=== PATIENT | female | born 1985 | race Two or more races ===

== ENCOUNTER 2024-01-21 21:31 | Inpatient (IN) | payer MEDICARE, MEDICAID ==
[~2024-01-21] VITALS: Ht 172.7 cm; Wt 105.8 kg
--- NOTE | 2024-01-21 21:38 | ED.PDOC ---
History of Present Illness HPI Comments 38-year-old female with "extensive psych history" brought in by EMS presents with a chief complaint of hematoma to occipital region. Per EMS, patient was at her care home and was banging her head against a wall. Patient has a 2x2 sized hematoma to the occipital region of her head. Per EMS, patient has extensive psych history per care home. Patient is not answering questions at this time about whether she was attempting to harm herself or end her life. No other symptoms or modifying factors present at this time. Time Seen by MD: 21:30 Reviewed Notes: Medications, Allergies Allergies: Coded Allergies: NO KNOWN ALLERGIES (Unverified , 01/21/24) Information Source: Emergency Med Personnel Mode of Arrival: EMS Severity: Moderate Timing: Minutes Duration: Since onset Prehospital treatment: None Past Medical History PAST MEDICAL HISTORY: Denies Surgical History: Denies all surgeries DRUG ABUSE COUNSELOR History: Denies all DRUG ABUSE COUNSELOR Hx Family History Family History: Reviewed,noncontributory to illness Social History Smoker: Non-Smoker Alcohol: Denies ETOH Use Drugs: Denies Drug Use Lives In: Other (RETIREMENT) Constitutional: denies: chills, diaphoresis, fatigue, fever, malaise, sweats, weakness, others EENTM: denies: blurred vision, double vision, ear bleeding, ear discharge, ear drainage, ear pain, ear ringing, eye pain, eye redness, hearing loss, mouth pain, mouth swelling, nasal discharge, nose bleeding, nose congestion, nose pain, photophobia, tearing, throat pain, throat swelling, voice changes, others Respiratory: denies: cough, hemoptysis, orthopnea, SOB at rest, shortness of breath, SOB with excertion, stridor, wheezing, others Cardiovascular: denies: chest pain, dizzy spells, diaphoresis, Dyspnea on exertion, edema, irregular heart beat, left arm pain, lightheadedness, palpitations, PND, syncope, others Gastrointestinal: denies: abdomen distended, abdominal pain, blood streaked bowels, constipated, diarrhea, dysphagia, difficulty swallowing, hematemesis, melena, nausea, poor appetite, poor fluid intake, rectal bleeding, rectal pain, vomiting, others Genitourinary: denies: abnormal vagina bleeding, burning, dyspareunia, dysuria, flank pain, frequency, hematuria, incontinence, pain, , vagina discharge, urgency, others Neurological: denies: dizziness, fainting, headache, left sided numbness, left sided weakness, numbness, paresthesia, pre-existing deficit, right sided numbness, right sided weakness, seizure, speech problems, tingling, tremors, weakness, others Musculoskeletal: denies: back pain, gout, joint pain, joint swelling, muscle pain, muscle stiffness, neck pain, others Integumetry: reports: wounds (2x2 Hematoma to Occipital Region); denies: bruises, change in color, change in hair/nails, dryness, laceration, lesions, lumps, rash, others Allergic/Immunocompromised: denies: Difficulty Healing, Frequent Infections, Hives, Itching, others Hematologic/Lymphatic: denies: anemia, blood clots, easy bleeding, easy b ruising, swollen glands, others Endocrine: denies: excessive hunger, excessive sweating, excessive thirst, excessive urination, flushing, intolerance to cold, intolerance to heat, unexplained weight gain, unexplained weight loss, others Psychiatric: denies: anxiety, bipolar disorder, depression, hopeless, panic disorder, schizophrenia, sleepless, suicidal, others All Other Systems: Reviewed and Negative Physical Exam General Appearance: No Apparent Distress, Normal, Other (2x2 Hematoma to Occipital Region ) HEENT: Normal ENT Inspection, Pharynx Normal, TMs Normal Neck: Full Range of Motion, Non-Tender, Normal, Normal Inspection Respiratory: Chest Non-Tender, Lungs Clear, No Accessory Muscle Use, No Respiratory Distress, Normal Breath Sounds Cardiovascular: No Edema, No JVD, No Murmur, No Gallop, Normal Peripheral Pulses, Regular Rate/Rhythm Breast Exam: Deferred Gastrointestinal: No Organomegaly, Non Tender, No Pulsatile Mass, Normal Bowel Sounds, Soft Genitalia: Deferred Pelvic: Deferred Rectal: Deferred Extremities: No calf tenderness, Normal capillary refill, Normal inspection, Normal range of motion, Non-tender, No pedal edema Musculoskeletal : Apperance: Normal Neurologic: Alert, golf shoe spike assembler II-XII nml as Tested, No Motor Deficits, Normal Affect, Normal Mood, No Sensory Deficits Cerebellar Function: Normal Reflexes: Normal Skin: Dry, Normal Color, Warm Lymphatic: No Adenopathy Was a procedure done? Was a procedure done?: No Differential Dx Considerations may include: intracranial injury X-Ray, Labs, Meds, VS Vital Signs Date Time Temp Pulse Resp B/P (MAP) Pulse Ox O2 Delivery O2 Flow Rate FiO2 01/21/24 21:31 97.6 86 20 171/77 (108) 99 Current Medications Medications (Trade) Dose Ordered Sig/Jimmy Route Start Time Stop Time Status Last Admin Midazolam HCl (Versed Injection) 10 mg ONCE ONCE IM 01/21/24 22:00 01/21/24 22:01 DC 01/21/24 22:49 Time of 1ST Reevaluation: 22:00 Reevaluation 1ST: Unchanged Patient Education/Counseling: Diagnosis, Treatment, Prognosis Family Education/Counseling: No Family Present Departure 1 Departure Time of Disposition: 01:57 (Patient's head CT is negative. We will discharge patient back to the care home.) Impression: Primary Impression: Aggressive behavior Additional Impression: Head contusion Qualified Codes: S00.03XA - Contusion of scalp, initial encounter Disposition: HOME / SELF CARE / HOMELESS Condition: Stable Additional Instructions: Your CT scan was benign. Your workup today was benign. You can take Tylenol or Motrin as needed for pain. You should follow up with your regular doctor within 1 week. You should stay well rested and well hydrated. If your symptoms worsen or you have any other concerns please return to the emergency room. Discharged With: Self Critical Care Note Critical Care Time?: No Stability Stability form required: No I personally scribed for EMANUEL TAYLOR MD ([email or web address]) on 01/21/24 at 21:38. Electronically submitted by Sung Baez ([email or web address]). EMANUEL TAYLOR MD Jan 21, 2024 21:38
[2024-01-21] MEDS: MIDAZOLAM HCL 5 MG/ML-1ML VIAL ONE (22:49)
[2024-01-21] MEDS: MIDAZOLAM HCL 5 MG/ML-1ML VIAL IM ONE (22:49)
--- NOTE | 2024-01-22 02:37 | DVH ---
Examination: HWOCT CLINICAL INDICATION: headstrike COMPARISON: None. CONTRAST USED: None. TECHNIQUE: The examination was performed obtaining 5 mm slices without contrast. CT scan was done a ccording to ALARA (As Low as Reasonably Achievable). Multiplanar reconstructions were obtained. FINDINGS: SUPRATENTORIAL BRAIN: Cerebral Hemispheres: There is no midline shift or mass effect, intra- or extra-axial fluid collecti ons or hemorrhage. Periventricular White Matter/Basal Ganglia: No abnormal areas of altered attenuation within the derek ventricular white matter or basal ganglia. POSTERIOR FOSSA: The brainstem is normal and the visualized cerebellar hemispheres are unremarkable. VENTRICULAR SYSTEM: The ventricular system is normal in size. There is no evidence of hydrocephalus or transependymal flow of cerebrospinal fluid. SKULL BASE AND PARASELLAR REGION: The skull base is normal, with no parasellar masses or abnormaliti es identified. CALVARIUM AND SCALP REGION: No abnormality is seen. PARANASAL SINUSES: No significant inflammatory changes are identified in the paranasal sinuses. IMPRESSION: 1. No evidence of calvarial fracture or extra-axial collection. 2. No acute intracranial abnormality. 3. No evidence of acute infarct or intracranial hemorrhage. 4. Rangel-white matter differentiation is well maintained. Electronically Signed 01/22/2024 02:36 Jess Flores
[2024-01-22] MEDS: MIDAZOLAM HCL 5 MG/ML-1ML VIAL IM ONE (05:11)
--- NOTE | 2024-01-22 05:33 | DVHINCON2 ---
Date of Service if different f: Jan 22, 2024 Time of Service: 05:26 Consult Consult Note Pt too sedated for psych evaluation at this time as pt was recently administered Versed due to increased agitation and restlessness Please call when pt is awake/alert and cooperative for a psych evaluation Odilon Restrepo MD Plan discussed with: Patient ODILON RESTREPO MD Jan 22, 2024 05:33
[2024-01-22] MEDS: HALOPERIDOL LACTATE 5 MG/ML INJ VIAL ONE (11:00)
[2024-01-22] MEDS: diphenhdrAMINE HCL 50 MG/1 ML VL ONE (11:00)
--- NOTE | 2024-01-22 11:00 | DVHINCON2 ---
Date of Service if different f: Jan 22, 2024 Consultation ([facility]) Appetite: Fair Appearance: Older than stated age Psychomotor activity: WNL Behavioral: Cooperative Eye contact: Appropriate Speech: WNL Affect: Mood Congruent, Irritable Mood: Irritable Thought processes: Starke Thought content: WNL Suicidal ideations: Absent Homicidal ideations: Absent Orientation: Person, Place, Situation Memory intact: Recent Intellect: Below average Abstractability: Starke Concentration: Adequate Attention: Adequate Judgement: Limited Insight: Poor Vitals Vital Signs Date Time Temp Pulse Resp B/P (MAP) Pulse Ox O2 Delivery O2 Flow Rate FiO2 01/22/24 08:00 62 18 100 01/21/24 21:31 97.6 171/77 (108) Treatment plan discussed: With staff Medication adjusted: No Diagnosis: intellectual disability, unspecified mood disorder Plan : This is a 38-year-old female who appears to be autistic, intellectual disability, presented to ED for banging her head. At this time, pt is calm reports being upset at the time. she denies suicidal/homicidal ideation, and requesting to return to longterm. Recommend discharge back to facility if they are willing, as inpatient hospitalization may not be helpful given that her condition is chronic Her psychotropic medication regime is not known, recommend to continue as prescribed and follow up outpatient. History of Present Illness Reason for Consult : banging her head at longterm, agitation in the ED HPI : This is a 38-year-old female with hx of intellectual disability presented to ED on 01/21/24 from longterm after banging her head. Patient is evaluated via telepsychiatry. On evaluation, pt reports that she was bored at longterm and started banging her head. She asked if she could go ride her bike prior to this, but caregiver refused saying he was busy and she became upset. She denies self-harming thoughts. She denies suicidal/homicidal ideation. She denies auditory/visual comer llucinations or paranoia. She frequently asking to go back to longterm during interview. She reports although she was banging her head, they should mind their business. She denies feeling depressed. Given her condition, she does have limited insight, but does agree to not bang her head and use her words. Past Psychiatric History : Per report, pt has extensive psychiatric history. She is unable to provide any history including prescribed psychotropic medications. She denies past suicide attempts. Past Medical History : She cannot provide Social History : She lives at longterm for unknown duration. She reports in g vape pen for marijuana and nicotine usually daily. FRANCISCO SHIELDS DNP Jan 22, 2024 10:59
[2024-01-22] MEDS: LORazepam 2MG/ML-1ML VIAL ONE (11:01)
[2024-01-22] MEDS: diphenhdrAMINE HCL 50 MG/1 ML VL IM ONE (11:03)
[2024-01-22] MEDS: LORazepam 2MG/ML-1ML VIAL IM ONE ×2 (11:03→19:39)
[2024-01-22] MEDS: HALOPERIDOL LACTATE 5 MG/ML INJ VIAL IM ONE (11:03)
[2024-01-22] MEDS: MIDAZOLAM HCL 2MG/2ML 2ml VIAL (1mg/ml) IM ONE (19:38)
[2024-01-23 11:00] VITALS: RESP 18
--- NOTE | 2024-01-23 11:58 | TELE.CONS ---
01/23/24 0538 The patient was seen and evaluated at [facility] ED via telepsychiatry platform. 38 yr old female was admitted on 01/20 for evaluation as she had been banging her head at her board and care. [facility] and diagnosed with Autism and Intellectual disability. She reported that she feels irritable today. She stated she wants to go home, but refused to take medication in the hospital and was combative with staff. She went to the bathroom in her diaper and became very aggressive. She denied having SI/HI/AVH. Collateral information from caregiver, Steve ([phone]): He reported that the patient has been diagnosed with schizophrenia, PTSD, Autism and ID. She has been at the [facility] and [facility] in [place] for the past four months. He reported that she is on several medications and has not taken them for the past ten days. She also receives Abilify Maintenna monthly, but refused the last shot so it was last given in early November. He noted that she was admitted to a [facility] from Dec 14- 2023 on involuntary hold and was discharged back to [facility]. He stated that she started banging her head and acting up on 01/16 so she was taken to the ED. At that time, she said she was taking her medications and was discharged back to [facility]. After returning there she told the staff that she had been throwing up her medication and not taking it. On the day of admission, she started banging her head on the wall and said she was trying to kill herself. She would not stop so they had her taken to the ED. He stated that she has a tendency to do much better when she is on her medications, but that since she has been off, she has been more aggressive, combative and oppositional. Current outpatient medications: Abilify Maintenna 400mg IM qmonth (last received in November and currently due) Prolixin 50mg BID Oxcarbazepine 150mg BID Quetiapine 300mg qhs Trazodone 150mg qhs Airipiprazole 15mg qam Xarelto 10mg qam Levothyroxine 50mcg rosie amlodpine 5mg qam atorvastatin 20mg qhs Glyburide 5mg BID Hydroxyzine 50mg BID MSE: Alert, oriented female sitting on bed cooperative and forthcoming speech-regular rate, rhythm Mood-depressed Affect-depressed, labile, congruent Tht process-linear and goal directed Tht Content- Denied having suicidal or homicidal ideation, plan or intent. denied AVH Insight-poor Judgment-poor Impulse control-poor Diagnosis: SCHIZOPHRENIA; AUTISM Assessment: This 38 yr old female appears to suffer from schizophrenia and autism. She has been off her medications and refused to take them for ten days. She is currently impulsive and suicidal and is a danger to her self as well as gravely disabled. She warrants admission to behavioral health unit for stabilization, observation and treatment. Plan: 1. Transfer to U when bed available. 2. Legal-initiate involuntary 5150 hold for danger to self and grave disability. Monitor for safety 3. Medications- Recommend Olanzapine 10mg TID PO or IM Ativan 2mg q8 hr prn agitation Seroquel 300mg qhs prn for sleep. 4. Case discussed with ED physician, Dr Candelaria. 5. Please contact psychiatry if further follow up or reevaluation is desired. Yes QUENTIN PINEDA MD Jan 23, 2024 11:58
[2024-01-23] MEDS ORDERED: LORazepam 2MG/ML-1ML VIAL IV ONE ×2 (13:45→14:00)
[2024-01-23] MEDS ORDERED: diphenhdrAMINE HCL 50 MG/1 ML VL IM ONE (13:45)
[2024-01-23] MEDS ORDERED: HALOPERIDOL LACTATE 5 MG/ML INJ VIAL IM ONE (13:45)
[2024-01-23] MEDS: LORazepam 2MG/ML-1ML VIAL ONE (13:48)
[2024-01-23] MEDS: diphenhdrAMINE HCL 50 MG/1 ML VL ONE (13:49)
[2024-01-23] MEDS: HALOPERIDOL LACTATE 5 MG/ML INJ VIAL ONE (13:49)
[2024-01-23] MEDS ORDERED: diphenhdrAMINE HCL 50 MG/1 ML VL IV ONE (14:00)
[2024-01-23] MEDS: OLANZapine 5 MG TAB PO ONE (14:00)
[2024-01-23] MEDS: HALOPERIDOL LACTATE 5 MG/ML INJ VIAL IM ONE (14:18)
[2024-01-23] MEDS: LORazepam 2MG/ML-1ML VIAL IM ONE (14:18)
[2024-01-23] MEDS: diphenhdrAMINE HCL 50 MG/1 ML VL IM ONE (14:18)
[2024-01-24] MEDS: LORazepam 2MG/ML-1ML VIAL ONE ×2 (00:07→21:43)
[2024-01-24] MEDS: LORazepam 2MG/ML-1ML VIAL IM ONE ×5 (00:23→21:54)
[2024-01-24 08:00] VITALS: PULSE 82; RESP 17; O2SAT 97
[2024-01-24] MEDS: MIDAZOLAM HCL 5 MG/ML-1ML VIAL ONE ×2 (11:34→21:59)
[2024-01-24] MEDS: HALOPERIDOL LACTATE 5 MG/ML INJ VIAL IM ONE ×4 (11:36→20:52)
[2024-01-24] MEDS: diphenhdrAMINE HCL 50 MG/1 ML VL IV ONE ×2 (11:36→11:37)
[2024-01-24] MEDS: MIDAZOLAM HCL 5 MG/ML-1ML VIAL IV ONE (12:15)
[2024-01-24] MEDS: diphenhdrAMINE HCL 50 MG/1 ML VL IM ONE ×2 (16:46→21:54)
[2024-01-24 21:00] VITALS: PULSE 89; RESP 18; O2SAT 99
[2024-01-24] MEDS: HALOPERIDOL LACTATE 5 MG/ML INJ VIAL ONE (21:17)
[2024-01-24] MEDS: diphenhdrAMINE HCL 50 MG/1 ML VL ONE (21:55)
[2024-01-24] MEDS: MIDAZOLAM HCL 2MG/2ML 2ml VIAL (1mg/ml) ONE (22:00)
[2024-01-24] MEDS: ROCURONIUM 10MG/ML 10ML VIAL IV ONE ×2 (22:10→22:35)
[2024-01-24] MEDS: ETOMIDATE (2MG/ML) 20ML VIAL IV ONE ×2 (22:10→22:35)
[2024-01-24] MEDS: PROPOFOL 100 ML IV ONE (22:10)
[2024-01-24 23:05] VITALS: PULSE 86; RESP 18; O2SAT 100
[2024-01-24] MEDS: PROPOFOL 100 ML IV SCH (23:15)
--- NOTE | 2024-01-24 23:28 | DVH ---
CHEST RADIOGRAPH Indication: S/P INTUBATION Technique: Single frontal view of the chest was obtained Comparison: None Findings / IMPRESSION: Endotracheal tube projected terminating in the level of the chey. Recommend withdrawing 1-2 cm and obtaining follow-up imaging. Low lung volumes with bronchovascular crowding. No focal co nsolidation or pneumothorax. No pleural effusions.
[2024-01-25] VITALS (82 sets, daily range): BP systolic 81–135; BP diastolic 36–75; PULSE 51–88; RESP 14–20; TEMP 96.3–100; O2SAT 96–100
[2024-01-25 00:16] LABS: Base Excess 0.9 mmol/L (-2.0-3.0)
--- NOTE | 2024-01-25 00:18 | DVH ---
CHEST RADIOGRAPH Indication: ET TUBE PLACEMENT Technique: Single frontal view of the chest was obtained Comparison: XY CHEST PORTABLE on DOS: 01/24/24 Findings/ IMPRESSION: Endotracheal tube projects 3 cm superior to the chey. Low lung volumes with bronchovascular crowdin g. Right basilar atelectasis versus developing airspace disease. No pneumothorax or pleural effusion s.
[2024-01-25] MEDS: fentaNYL Drip 2500mCg/250mlNS 250 ML IV ONE (00:28)
--- NOTE | 2024-01-25 00:29 | ED.PDOC ---
Was a procedure done? Was a procedure done?: Yes Sedation Sedation?: No Central Line Recorder of insertion practice: Liquid Center Assembler Occupation of tire cord weaver: Attending Physician Indication: Volume resuscitation, Inability to obtain IV Room prepared for procedure: Yes Liquid Center Assembler performed hand hygien: Yes Maximal sterile barrier precau: Mask/Eye shield, Cap, Sterlie gloves, Large sterlie drape Skin Preparation: Chlorhexidine gluconate Skin preparation completely dr: Yes Insertion site: Right, Femoral Central line catheter type: [id number] dialysis Number of lumens: 3 Central line exchanged over a: Yes Antiseptic ointment applied to: Yes Post Assessment: Proper placement Informed consent obtained: No Risks/benefits/alt described: No Intubation Indication: Altered Mental Status Pretreated with: Other (Etomidate) Medicated with: Other (Rocuronium) Intubation Approach: Orotracheal Intubation size: cm (8) Informed consent obtained: No Risks/benefits/alt described: No Departure 1 Departure Time of Disposition: 00:27 (Patient with altered mental status became increasingly agitated and combative became a threat in a danger to hospital staff and to herself. Patient was intubated for her protection.) Impression: Primary Impression: Aggressive behavior Additional Impressions: Head contusion Qualified Codes: S00.03XA - Contusion of scalp, initial encounter Altered mental status Qualified Codes: R41.0 - Disorientation, unspecified Disposition: ADMITTED INPATIENT Admit to: ICU Condition: Guarded Critical Care Note Critical Care Time?: Yes Critical care comment: Altered mental status Authorized and Performed by: Emanuel Willis MD Total critical care time: Approximately 118 minutes Due to a high probability of clinically significant, life threatening deterioration, the patient required my highest level of preparedness to intervene emergently and I personally spent this critical care time directly and personally managing the patient. This critical care time included obtaining a history; examining the patient; pulse oximetry; ordering and review of studies; arranging urgent treatment with development of a management plan; evaluation of patient's response to treatment; frequent reassessment; and, discussions with other providers. This critical care time was performed to assess and manage the high probability of imminent, life-threatening deterioration that could result in multi-organ failure. It was exclusive of separately billable procedures and treating other patients and teaching time. Please see my other sections and the rest of the note for further information on patient assessment and treatment. EMANUEL WILLIS MD Jan 25, 2024 00:29
[2024-01-25] MEDS: hydrALAZINE HCL 20 MG/ML VL IV ONE (00:30)
[2024-01-25 00:34] LABS: Basophils # (auto) 0.1 10 ^3/uL (0-0.2); Basophils % (auto) 0.5 % (0.0-2.0); Eosinophils # (auto) 0.1 10 ^3/uL (0-0.8); Eosinophils % (auto) 1.1 % (0.0-7.0); Lymphocytes # (auto) 4.7 10 ^3/uL (0.4-5.4); Lymphocytes % (auto) 39.4 % (10.0-50.0); Mean Corpuscular Hemoglobin 31.8 pg (28.0-32.0); Mean Corpuscular Hgb Conc. 32.6 g/dL (32.0-36.0); Mean Corpuscular Volume 97.6 fL (80.0-100.0); Monocytes # (auto) 0.9 10 ^3/uL (0-1.3); Monocytes % (auto) 7.6 % (0.0-12.0); Neutrophils # (auto) 6.2 10 ^3/uL (1.6-8.6); Neutrophils % (auto) 51.4 % (37.0-80.0); Nucleated Red Blood Cells % 0.1 %; Platelet Count (auto) 298 10^3/uL (140-450); Red Blood Cells 4.72 10^6/uL (4.0-5.20); Red Cell Distribution Width 15.2 % (11.8-14.3)
[2024-01-25] MEDS: fentaNYL Drip 2500mCg/250mlNS 250 ML IV SCH (00:45)
[2024-01-25 01:31] LABS: Alanine Aminotransferase 23 U/L (7-40); Alkaline Phosphatase 97 U/L (46-116); Anion Gap 15 (5-15); BUN/Creatinine Ratio 14.9 (10.0-20.0); Blood Urea Nitrogen 18 mg/dL (9-23); Calcium 10.3 mg/dL (8.7-10.4); Carbon Dioxide 20 mmol/L (20-31); Chloride 107 mmol/L (98-107); Potassium 4.2 mmol/L (3.5-5.1); Sodium 142 mmol/L (136-145)
[2024-01-25 01:32] LABS: Albumin 4.8 g/dL (3.2-4.8); Aspartate Aminotransferase 45 U/L (13-40); Bilirubin, Total 0.8 mg/dL (0.2-1.0); Blood Alcohol < 3.0 mg/dL (<10); Glucose 143 mg/dL (74-106); Total Protein 7.6 g/dL (5.7-8.2)
[2024-01-25 01:43] LABS: Lipase 34 U/L (12-53)
[2024-01-25] MEDS ORDERED: MORPHINE SULFATE INJ 2 MG/ml SYRG IV PRN (04:15)
[2024-01-25] MEDS ORDERED: NITROGLYCERIN 0.4 MG SL TAB SL PRN (04:15)
[2024-01-25] MEDS ORDERED: ACETAMINOPHEN 650 MG RECT SUPP PR PRN (04:15)
--- NOTE | 2024-01-25 04:40 | DVHHP2 ---
History of Present Illness Reason for Visit: Acute respiratory failure History of Present Illness The patient is a 38-year-old female with past medical history of thyroid disease and hypertension who presented to [facility] ED for evaluation of altered level of consciousness. As reported, the patient has extensive psych history brought in by EMS present with complaint of hematoma to occipital region. As reported by EMS, patient was at her senior care and was banging her head against a wall. Patient has a 2x2 sized hematoma to the occipital region of her head. Patient was not answering questions at this time about whether she was attempting to harm herself or end her life. Patient progressively get worse, become very aggressive, agitated, danger to self and others, getting worse and subsequently intubated. Laboratory data shows WBC 12.0, platelets 298, sodium 142, potassium 4.2, BUN 18, creatinine 1.21, glucose 143, AST 45, ALT 23, troponin 7, lipase 34, blood pressure 199/107 trending down to 97/64, heart rate 74, temperature 98.7 F, O2 saturation 99% on ventilator. Head CT showed no evidence of acute infarct or intracranial hemorrhage. On my assessment, patient remains fully intubated, no diaphoresis, no diarrhea, no vomiting, no fever, no chills. Patient was admitted for further evaluation and medical management. Past Medical History Hypertension, thyroid disease. HLD, schizophrenia, depression Past Surgical History Denies all surgeries Family History Reviewed, noncontributory to the management of this case. Past Social History The patient lives at home, denies smoking, alcohol or illicit drugs abuse. Review of Systems Constitutional: No: Fever, Chills, Sweats, Weakness, Malaise, Other Eyes: No: Pain, Vision change, Conjunctivae inflammation, Eyelid inflammation, Other, Redness ENT: No: Ear pain, Ear discharge, Nose pain, Nose discharge, Nose congestion, Mouth pain, Mouth swelling, Throat pain, Throat swelling, Other Respiratory: No: Cough, Dry, Shortness of breath, SOB with excertion, Wheezing, Hemoptysis, Pleuritic Pain, Sputum, Wheezing, Other Cardiovascular: No: Chest Pain, Palpitations, Orthopnea, Paroxysmal Noc. Dyspnea, Edema, Lt Headedness, Other Gastrointestinal: No: Nausea, Vomiting, Abdominal Pain, Diarrhea, Constipation, Melena, Hematochezia, Other Genitourinary: No Dysuria, No Frequency, No Incontinence, No Hematuria, No Retention, No Other Musculoskeletal: No: other, neck pain, shoulder pain, arm pain, back pain, hand pain, leg pain, foot pain Skin: Other (Hematoma occipital region); No: Rash, Lesions, Jaundice, Bruising Neurological: No: Weakness, Numbness, Incoordination, Change in speech, Confusion, Seizures, Other Allergies: Coded Allergies: NO KNOWN ALLERGIES (Unverified , 01/21/24) Medications Current Medications Medications Dose Ordered Sig/Jimmy Route Start Time Stop Time Status Last Admin Dose Admin Propofol 100 ml @ 3.51 mls/hr Q24H IV 01/24/24 22:15 01/24/24 23:15 3.51 MLS/HR Fentanyl Citrate 250 ml @ 2.5 mls/hr Q24H IV 01/25/24 01:00 01/25/24 00:45 2.5 MLS/HR Exam Vital Signs Vital Signs Date Time Temp Pulse Resp B/P (MAP) Pulse Ox O2 Delivery O2 Flow Rate FiO2 01/25/24 04:05 72 18 100/66 (77) 100 30 01/24/24 21:00 Room Air* 0 01/24/24 08:00 98.7 98.7 General Appearance: Other (Fully intubated) HEENT: Atraumatic, PERRLA, EOMI, Mucous membr. moist/pink Respiratory: Normal air movement, Other (Ventilator) Cardiovascular: Regular rate, Normal S1, Normal S2, No murmurs Abdominal: Normal bowel sounds, Soft, No tenderness, No hepatospenomegaly, No masses Extremities: No clubbing, No cyanosis, No edema, Normal pulses, No tenderness/swelling Skin: No rashes, No breakdown, No significant lesion Neuro: Normal tone, Sensation intact, Cranial nerves 3-12 NL, Reflexes 2+, Other (Altered level of consciousness) Psych/Mental Status: Other (Aggressive behavior) Labs/Xrays Labs Test 01/25/24 00:18 01/24/24 23:39 Range/Units White Blood Count 12.0 H 4.4-10.8 10^3/uL Red Blood Count 4.72 4.0-5.20 10^6/uL Hemoglobin 15.0 12.2-16.2 g/dL Hematocrit 46.0 36.0-46.0 % Mean Corpuscular Volume 97.6 80.0-100.0 fL Mean Corpuscular Hemoglobin 31.8 28.0-32.0 pg Mean Corpuscular Hemoglobin Concent 32.6 32.0-36.0 g/dL Red Cell Distribution Width 15.2 H 11.8-14.3 % Platelet Count 298 140-450 10^3/uL Mean Platelet Volume 7.9 6.9-10.8 fL Neutrophils (%) (Auto) 51.4 37.0-80.0 % Lymphocytes (%) (Auto) 39.4 10.0-50.0 % Monocytes (%) (Auto) 7.6 0.0-12.0 % Eosinophils (%) (Auto) 1.1 0.0-7.0 % Basophils (%) (Auto) 0.5 0.0-2.0 % Neutrophils # (Auto) 6.2 1.6-8.6 10 ^3/uL Lymphocytes # (Auto) 4.7 0.4-5.4 10 ^3/uL Monocytes # (Auto) 0.9 0-1.3 10 ^3/uL Eosinophils # (Auto) 0.1 0-0.8 10 ^3/uL Basophils # (Auto) 0.1 0-0.2 10 ^3/uL Nucleated Red Blood Cells 0.1 % Sodium Level 142 136-145 mmol/L Potassium Level 4.2 3.5-5.1 mmol/L Chloride Level 107 98-107 mmol/L Carbon Dioxide Level 20 20-31 mmol/L Anion Gap 15 5-15 Blood Urea Nitrogen 18 9-23 mg/dL Creatinine 1.21 H 0.550-1.02 mg/dL Glomerular Filtration Rate Calc 60 >90 mL/min BUN/Creatinine Ratio 14.9 10.0-20.0 Serum Glucose 143 H 74-106 mg/dL Lactic Acid Level 1.7 0.4-2.0 mmol/L Calcium Level 10.3 8.7-10.4 mg/dL Total Bilirubin 0.8 0.2-1.0 mg/dL Aspartate Amino Transferase (AST) 45 H 13-40 U/L Alanine Aminotransferase (ALT) 23 7-40 U/L Alkaline Phosphatase 97 46-116 U/L Troponin I High Sensitivity 7 </=34 ng/L Total Protein 7.6 5.7-8.2 g/dL Albumin 4.8 3.2-4.8 g/dL Lipase 34 12-53 U/L Acetaminophen Level < 2.0 L 10.0-20.0 UG/ML Plasma/Serum Blood Alcohol < 3.0 <10 mg/dL Blood Gas Specimen Type Arterial Blood Gas Sample Site Right radial Blood Gas Patient Temperature 37.0 Arterial Blood Date Drawn [id number] Arterial Blood pH 7.445 7.350-7.450 Arterial Blood Partial Pressure CO2 36.6 32.0-45.0 mmHg Arterial Blood Partial Pressure O2 151.5 H 83.0-108.0 mmHg Arterial Blood HCO3 24.6 21.0-28.0 mmol/L Arterial Blood Oxygen Saturation 99.2 H 94.0-98.0 % Arterial Blood Base Excess 0.9 -2.0-3.0 mmol/L Arterial Blood Oxyhemoglobin 98.1 H 94.0-98.0 % Arterial Blood Carboxyhemoglobin 0.7 0.5-1.5 % Arterial Blood Methemoglobin 0.4 0.0-1.5 % Christiano Test Modified Blood Gas Total Hemoglobin 15.00 12.0-16.0 g/dL Blood Gas Set Respiration Rate 18.0 Blood Gas Modality Vent - ac FiO2 % 60.0 Blood Gas Tidal Volume 550.0 Blood Gas PEEP or CPAP 5.0 PATIENT: GABO GALVAN ACCT: [id number] UNIT: [id number] : 1985 LOC: ER ROOM / BED: / AGE / SEX: 38 / F ADM STATUS: REG ER SERVICE [id number] ORDERING PHYSICIAN: EMANUEL TAYLOR MD PROCEDURE(s): HWOCT - HEAD WITHOUT CONTRAST REASON: headstrike ORDER NUMBER(s): [id number], ACCESSION NUMBER(s): [id number] Examination: HWOCT CLINICAL INDICATION: headstrike COMPARISON: None. CONTRAST USED: None. TECHNIQUE: The examination was performed obtaining 5 mm slices without contrast. CT scan was done according to ALARA (As Low as Reasonably Achievable). Multiplan ar reconstructions were obtained. FINDINGS: SUPRATENTORIAL BRAIN: Cerebral Hemispheres: There is no midline shift or mass effect, intra- or extra- axial fluid collections or hemorrhage. Periventricular White Matter/Basal Ganglia: No abnormal areas of altered attenuation within the periventricular white matter or basal ganglia. POSTERIOR FOSSA: The brainstem is normal and the visualized cerebellar hemispheres are unremarkable. VENTRICULAR SYSTEM: The ventricular system is normal in size. There is no evidence of hydrocephalus or transependymal flow of cerebrospinal fluid. SKULL BASE AND PARASELLAR REGION: The skull base is normal, with no parasellar masses or abnormalities identified. CALVARIUM AND SCALP REGION: No abnormality is seen. PARANASAL SINUSES: No significant inflammatory changes are identified in the paranasal sinuses. IMPRESSION: 1. No evidence of calvarial fracture or extra-axial collection. 2. No acute intracranial abnormality. 3. No evidence of acute infarct or intracranial hemorrhage. 4. Rangel-white matter differentiation is well maintained. ORDERING PHYSICIAN: EMANUEL TAYLOR MD PROCEDURE(s): CXRP - CHEST PORTABLE REASON: S/P INTUBATION ORDER NUMBER(s): [id number], ACCESSION NUMBER(s): [id number] CHEST RADIOGRAPH Indication: S/P INTUBATION Technique: Single frontal view of the chest was obtained Comparison: None Findings/ IMPRESSION: Endotracheal tube projected terminating in the level of the chey. Recommend withdrawing 1-2 cm and obtaining follow-up imaging. Low lung volumes with bronchovascular crowding. No focal consolidation or pneumothorax. No pleural effusions. ORDERING PHYSICIAN: EMANUEL TAYLOR MD PROCEDURE(s): CXRP - CHEST PORTABLE REASON: ET TUBE PLACEMENT ORDER NUMBER(s): [id number], ACCESSION NUMBER(s): [id number] CHEST RADIOGRAPH Indication: ET TUBE PLACEMENT Technique: Single frontal view of the chest was obtained Comparison: XY CHEST PORTABLE on DOS: 01/24/24 Findings/ IMPRESSION: Endotracheal tube projects 3 cm superior to the chey. Low lung volumes with bronchovascular crowding. Right basilar atelectasis versus developing airspace disease. No pneumothorax or pleural effusions. Assessment/Plan Assessment/Plan Aggressive behavior Head contusion Altered mental status Leukocytosis, unspecified Contusion of scalp, initial encounter Plan 1. Admit to intensive care unit 2. Breathing treatment 3. Pain control management 4. IV antibiotic management 5. Management of fluids and electrolytes 6. Consultation for hospitalist 7. Diagnostic test head CT 8. DVT prophylaxis-on SCDs 9. Repeat labs CBC, CMP in a.m. 10. Home medication reviewed and reconciled 11. Continue with current medical management 12. Treatment plan discussed with patient and RN. Patient is fully intubated. Plan discussed with: Patient, Other (RN) My Orders Orders - TRINH MCALLISTER DNP Procedure Category Date Status Time Complete Blood Count LAB 01/25/24 Transmitted 04:01 Comprehensive LAB 01/25/24 Transmitted Metabolic Panel 04:01 Hydralazine Injection [facility] 01/25/24 Transmitted (Apresoline Inject 04:15 Levothyroxine Tablet [facility] 01/25/24 Transmitted (Synthroid Tablet) 06:00 *Consult CONS 01/25/24 Transmitted / 04:01 Admit ADMIT 01/25/24 Transmitted 04:01 Allergies [facility] 01/25/24 Transmitted 04:01 Code Status CODE 01/25/24 Transmitted 04:01 Sodium Chloride Lock [facility] 01/25/24 Transmitted (Saline Lock Ns) 06:00 Oxygen Per Hour RT 01/25/24 Transmitted 04:01 Ondansetron Hcl [facility] 01/25/24 Transmitted (Zofran) 04:15 Fall Risk Precautions [facility] 01/25/[address] 04:01 Complete Blood Count LAB 01/26/24 Verified 04:00 Comprehensive LAB 01/26/24 Verified Metabolic Panel 04:00 Npo (Nothing By DIET 01/25/24 Transmitted Mouth) Diet Breakfast Condition: Critical [facility] 01/25/24 Transmitted 04:01 Sequential [facility] 01/25/24 Transmitted Compression Device Nitroglycerin [facility] 01/25/24 Transmitted Sublingual (Ntrostat 04:15 Morphine Sulfate [facility] 01/25/24 Transmitted Injection 04:15 Notify Md Of Changes [facility] 01/25/24 Transmitted From Base 04:01 Change Control Manager For [facility] 01/25/24 Transmitted 24 Hours 04:01 Emergency Dysrhythmia [facility] 01/25/24 Transmitted Protocol 04:01 Rhythm Strips Once [facility] 01/25/24 Transmitted Every Shift 04:01 Oxygen By Nasal RT 01/25/24 Transmitted Cannula 04:01 Acetaminophen [facility] 01/25/24 Transmitted Suppository (Tylenol 04:15 Problem List: (1) Aggressive behavior (2) Leukocytosis, unspecified (3) Altered mental status (4) Head contusion (5) Contusion of scalp, initial encounter Date of Service: Jan 25, 2024 Billing Provider: TRINH MCALLISTER DNP Common Visit Codes: [id number] INP/OBS CARE (HIGH) TRINH MCALLISTER DNP Jan 25, 2024 04:40
[2024-01-25 05:04] LABS: Urine Bacteria None Seen /hpf (None Seen)
[2024-01-25] MEDS: cefTRIAXone 1GM/50ML D5W 50 ML IV ONE (05:22)
[2024-01-25 05:23] LABS: Urine Amorphous Crystal FEW /hpf (None Seen); Urine Blood Negative /uL (Negative); Urine Clarity Turbid (Clear); Urine Color Yellow (Yellow); Urine Hyaline Cast MOD /lpf (0 - 2); Urine Mucus FEW (None Seen); Urine Protein, UAD 1+ (Negative); Urine Specific Gravity 1.029 (1.001-1.035); Urine Urobilinogen 2 mg/dL (Negative); Urine WBC 10 /hpf (0 - 5); Urine pH 5.5 (5.0-9.0)
[2024-01-25 05:34] LABS: Phencyclidine Screen, Urine Neg (NEGATIVE)
[2024-01-25 05:35] LABS: Amphetamine Screen, Urine Neg (NEGATIVE); Barbiturate Scree,Urine Neg (NEGATIVE); Benzodiazephine Screen, Urine Pos (NEGATIVE); Cannabinoid Screen, Urine Pos (NEGATIVE); Cocaine Screen, Urine Neg (NEGATIVE); Opiate Scree,Urine Neg (NEGATIVE)
[2024-01-25 05:49] LABS: Basophils # (auto) 0.1 10 ^3/uL (0-0.2); Basophils % (auto) 0.5 % (0.0-2.0); Eosinophils # (auto) 0.1 10 ^3/uL (0-0.8); Eosinophils % (auto) 1.1 % (0.0-7.0); Hematocrit 42.6 % (36.0-46.0); Hemoglobin 13.7 g/dL (12.2-16.2); Lymphocytes # (auto) 5.5 10 ^3/uL (0.4-5.4); Lymphocytes % (auto) 43.7 % (10.0-50.0); Mean Corpuscular Hemoglobin 31.7 pg (28.0-32.0); Mean Corpuscular Hgb Conc. 32.2 g/dL (32.0-36.0); Mean Corpuscular Volume 98.4 fL (80.0-100.0); Neutrophils # (auto) 5.9 10 ^3/uL (1.6-8.6); Neutrophils % (auto) 46.7 % (37.0-80.0); Platelet Count (auto) 303 10^3/uL (140-450); Red Blood Cells 4.33 10^6/uL (4.0-5.20); Red Cell Distribution Width 15.5 % (11.8-14.3); White Blood Cell 12.7 10^3/uL (4.4-10.8)
[2024-01-25 06:10] LABS: Alanine Aminotransferase 19 U/L (7-40); Albumin 4.1 g/dL (3.2-4.8); Alkaline Phosphatase 85 U/L (46-116); Anion Gap 11 (5-15); Aspartate Aminotransferase 29 U/L (13-40); Blood Urea Nitrogen 17 mg/dL (9-23); Sodium 141 mmol/L (136-145)
[2024-01-25 06:11] LABS: Bilirubin, Total 0.5 mg/dL (0.2-1.0); Calcium 10.2 mg/dL (8.7-10.4); Carbon Dioxide 21 mmol/L (20-31); Chloride 109 mmol/L (98-107); Glucose 114 mg/dL (74-106); Potassium 3.3 mmol/L (3.5-5.1); Total Protein 6.7 g/dL (5.7-8.2)
[2024-01-25] MEDS: NOREPINEPHRINE 8 MG/250ML KIT 250 ML IV SCH (08:00)
[2024-01-25] MEDS: SOD CHL 0.45% 1,000 ML IV ONE (08:27)
[2024-01-25 08:43] LABS: Base Excess -2.8 mmol/L (-2.0-3.0)
[2024-01-25] MEDS: SODIUM CHLOR 0.9% PF (SALINE LOCK) 10ML VIAL/SYR IV SCH (11:20)
[2024-01-25] MEDS: LEVOTHYROXINE SODIUM 50 MCG TAB PO SCH (11:20)
[2024-01-25] MEDS: SODIUM CHLORIDE 0.9% 1,000 ML IV SCH (12:26)
[2024-01-25] MEDS: POTASSIUM CHL 20MEQ/100ML 100 ML IV SCH (12:35)
[2024-01-25] MEDS: SODIUM CHLORIDE 0.9% 500 ML IV ONE (19:52)
[2024-01-25] MEDS: MIDAZOLAM DRIP 50 mg/50mL 50 ML IV SCH (20:00)
--- NOTE | 2024-01-25 21:36 | DVHINCON2 ---
DATE OF CONSULTATION: 01/25/2024 PULMONARY CONSULT REASON FOR CONSULTATION: Respiratory failure, vent management. HISTORY OF PRESENT ILLNESS: The patient is a 38-year-old lady who has a history of psychiatric disorder. She also has a history of thyroid disease and hypertension. She came into the ED with altered level of consciousness. The patient had extensive psych history, brought in by EMS. The patient also had a hematoma on the occipital region. The patient was at a assisted and banging her head against the wall. The patient was intubated for airway protection. At the time of my examination, the patient was not answering any questions, was sedated, appeared to be comfortable, in no acute respiratory distress. The rest of the history is obtained from patient's medical records and information provided by the bedside RN. The patient had low-grade fever, not having any secretions. Urine output has been stable. The patient does not appear to be in any pain. PAST MEDICAL HISTORY: Hypertension, thyroid disease, schizophrenia and depression. PAST SURGICAL HISTORY: Done according to medical records. REVIEW OF SYSTEMS AND FAMILY HISTORY: Could not be obtained. SOCIAL HISTORY: No history of alcohol or drug use per medical records. ALLERGIES: None. MEDICATIONS: Noted. PHYSICAL EXAMINATION: VITAL SIGNS: The patient is currently afebrile, heart rate is 66, respiratory rate is 16 with the ventilator, blood pressure is 96/40, saturations were 99-100% on 30% FIO2. HEENT: Unremarkable. Tongue is moist. NECK: Supple. CHEST: Reveals fairly clear. No wheezing, no rales. Slightly diminished air entry on the right side. ABDOMEN: Soft, nontender, no organomegaly, tenderness, guarding, rigidity, rebound. No active bowel sounds are present. COR: S1, S2. No murmurs, no gallops. EXTREMITIES: No edema or clubbing. NEUROLOGIC: Sedated, got patient ventilator interface. No acute distress. No spontaneous motor or verbal activity noted. LABORATORY WORK: Reviewed. WBC 12.7, hematocrit is 42, platelet count 303, 46% neutrophils. Blood gas on ventilator revealed pH 7.49, pCO2 25, pO2 145, bicarbonate 18, base excess -2.8, saturations 98. The patient was on assist control, tidal volume 550, rate of 18, peep of 5, 30% FIO2. Serum chemistries revealed potassium 3.3, creatinine 1.06, glucose 114. Rest was unremarkable. Tox screen was positive for fentanyl and benzodiazepines. Tylenol and alcohol levels were within normal limits. Urinalysis, 1+ leukocyte esterase, 10 wbcs' per high powered field. Gram stain pending. Head CT was also reviewed and shows no evidence of acute intracranial abnormality, no fracture or extraaxial collection. IMPRESSION AND PLAN: Acute respiratory failure, intubated, also for airway protection, underlying psychiatric disturbance, changes in mental status. Ventilator settings appear to be adequate, slightly alkalotic. We will decrease tidal volume to 500, the patient has questionable infiltrate in the right lower lobe. I agree with Rocephin. Continue Levophed, titrate to keep systolic greater than 90, mean greater than 65. The patient remains comfortable on Versed, titrate to keep RASS -1 to - 2. Avoid over sedation. Psychiatric follow up. Once the patient's neurological status and psychiatric status is stable, would consider weaning the patient off the ventilator. We will check a blood gas and x-ray in the morning. Plan discussed with bedside RNAnabel. Critical time 33 minutes. Thank you for asking me to see this patient. Dr. Ring will resume Pulmonary Care in the morning. Dhaval Mojica MD /EZEQUIEL TID: [id number] RECEIPT: [id number]
[2024-01-26] VITALS (109 sets, daily range): BP systolic 79–159; BP diastolic 38–78; PULSE 46–88; RESP 8–18; TEMP 97.9–100.2; O2SAT 94–100
[2024-01-26 03:57] LABS: Basophils # (auto) 0.1 10 ^3/uL (0-0.2); Basophils % (auto) 0.5 % (0.0-2.0); Eosinophils # (auto) 0.3 10 ^3/uL (0-0.8); Eosinophils % (auto) 2.4 % (0.0-7.0); Hematocrit 39.9 % (36.0-46.0); Hemoglobin 13.1 g/dL (12.2-16.2); Lymphocytes # (auto) 5.1 10 ^3/uL (0.4-5.4); Lymphocytes % (auto) 39.2 % (10.0-50.0); Mean Corpuscular Hemoglobin 32.5 pg (28.0-32.0); Mean Corpuscular Hgb Conc. 32.9 g/dL (32.0-36.0); Mean Corpuscular Volume 98.9 fL (80.0-100.0); Monocytes % (auto) 7.9 % (0.0-12.0); Neutrophils # (auto) 6.5 10 ^3/uL (1.6-8.6); Platelet Count (auto) 249 10^3/uL (140-450); Red Blood Cells 4.03 10^6/uL (4.0-5.20); Red Cell Distribution Width 15.4 % (11.8-14.3); White Blood Cell 12.9 10^3/uL (4.4-10.8)
[2024-01-26] MEDS: cefTRIAXone 1GM/50ML D5W 50 ML IV SCH (04:13)
[2024-01-26 04:14] LABS: Alanine Aminotransferase 18 U/L (7-40); Albumin 3.8 g/dL (3.2-4.8); Alkaline Phosphatase 82 U/L (46-116); Anion Gap 10 (5-15); Aspartate Aminotransferase 24 U/L (13-40); BUN/Creatinine Ratio 13.8 (10.0-20.0); Bilirubin, Total 0.5 mg/dL (0.2-1.0); Blood Urea Nitrogen 15 mg/dL (9-23); Calcium 9.5 mg/dL (8.7-10.4); Carbon Dioxide 21 mmol/L (20-31); Potassium 4.2 mmol/L (3.5-5.1); Sodium 141 mmol/L (136-145)
[2024-01-26 04:15] LABS: Chloride 110 mmol/L (98-107); Glucose 136 mg/dL (74-106); Total Protein 6.2 g/dL (5.7-8.2)
--- NOTE | 2024-01-26 05:03 | DVH ---
CHEST RADIOGRAPH Indication: vent Technique: Single frontal view of the chest was obtained COMPARISON: XY CHEST PORTABLE on DOS: 01/24/24, XY CHEST PORTABLE on DOS: 01/24/24 FINDINGS: Lines and Tubes: Endotracheal tube and enteric catheter in satisfactory position. Lungs: Low lung volumes. Congestion. Pleura: No effusion. No pneumothorax. Cardiomediastinal contours: Unremarkable Bones: Unremarkable IMPRESSION: Lines and tubes in satisfactory position. No significant interval change.
[2024-01-26] MEDS: PROPOFOL 100 ML IV ONE (05:16)
[2024-01-26 07:33] LABS: Base Excess -5.7 mmol/L (-2.0-3.0)
--- NOTE | 2024-01-26 15:12 | DVHPN2 ---
Progress Note Date Seen: Jan 26, 2024 Medical Necessity Reason Pt with a Central, PICC or Fol: Yes The following are medically ne: Menezes Catheter Reason for menezes catheter: Strict I&O Subjective Patient reports: No new complaints Review of Systems: HEENT:Normal, CVS:Normal, RESPIRATORY:Normal, GI:Normal, :Normal, MSK:Normal, NEURO:Normal Objective vital signs Vital Sign Date Time Temp Pulse Resp B/P (MAP) Pulse Ox O2 Delivery O2 Flow Rate FiO2 01/26/24 14:50 121/59 01/26/24 14:15 99.0 56 16 98 210.2 01/26/24 14:00 30 01/26/24 14:00 Mechanical Ventilator+ 01/24/24 21:00 0 Total Intake and Output 01/25/24 01/25/24 01/26/24 15:00 23:00 07:00 Intake Total 1041.56 ml 1813.66 ml 1290.11 ml Output Total 100 ml 700 ml Balance 1041.56 ml 1713.66 ml 590.11 ml medications Current Medications Medications Dose Ordered Sig/Jimmy Route Start Time Stop Time Status Last Admin Dose Admin Propofol 100 ml @ 3.51 mls/hr Q24H IV 01/24/24 22:15 01/26/24 09:18 24.57 MLS/HR Fentanyl Citrate 250 ml @ 2.5 mls/hr Q24H IV 01/25/24 01:00 01/26/24 07:36 15 MLS/HR Hydralazine HCl 10 mg Q6HP PRN IV 01/25/24 04:15 Levothyroxine Sodium 50 mcg QAM@0600 PO 01/25/24 06:00 01/26/24 05:18 50 MCG Sodium Chloride 10 ml Q8HR IV 01/25/24 06:00 01/26/24 14:32 10 ML Ondansetron HCl 4 mg Q4HP PRN IV 01/25/24 04:15 Nitroglycerin 0.4 mg Q5MINP PRN SL 01/25/24 04:15 Morphine Sulfate 2 mg Q30M PRN IV 01/25/24 04:15 Acetaminophen 650 mg Q6HP PRN OR 01/25/24 04:15 Ceftriaxone Sodium 50 ml @ 100 mls/hr DAILY@0400 IV 01/26/24 04:00 01/26/24 04:13 100 MLS/HR Midazolam HCl 50 ml @ 1 mls/hr Q24H IV 01/25/24 06:45 01/25/24 20:00 1 MLS/HR Norepinephrine Bitartrate 250 ml @ 3.75 mls/hr Q24H IV 01/25/24 06:45 01/26/24 14:30 7.5 MLS/HR Sodium Chloride 1,000 ml @ 100 mls/hr Q10H IV 01/25/24 11:45 01/26/24 10:45 100 MLS/HR Examination: GENERAL:Normal, HEENT:Normal, NECK:Normal, LUNGS:Normal, LUNGS:Abnormal (intubated), CVS:Normal, ABDOMEN:Normal, MSK:Normal, SKIN:Normal, NEURO:Normal, :Normal laboratory and microbiology Laboratory Tests 01/26/24 03:26 Test 01/26/24 03:26 Range/Units Serum Glucose 136 H 74-106 mg/dL Microbiology Date/Time Source Procedure Growth Status 01/24/24 22:39 Trachea Gram Stain Pending Resulted 01/24/24 22:39 Trachea Respiratory Culture - Preliminary Resulted Problem List/Assessment/Plan Problem List/Assessment/Plan #1 acute resp failure: cont acv #2 septic shock with ?pneumonia: iv zosyn #3 schizophrenia/autism #4 obesity #5 hypothyroidism: check tsh #6 h/o 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 #7 gi prophylaxis Plan discussed with: Other (rn) My Orders My Orders Orders - BRYCE HULL MD Procedure Category Date Status Time Zosyn Extended PHA 01/26/24 Transmitted Infusion 15:15 Zosyn Extended PHA 01/26/24 Transmitted Infusion 22:00 Enoxaparin Sodium PHA 01/26/24 Transmitted (Lovenox) 15:15 Enoxaparin Sodium PHA 01/27/24 Transmitted (Lovenox) 10:00 Nutritional PHA 01/26/24 Transmitted Supplements (Jevity 15:15 Complete Blood Count LAB 01/27/24 Verified 06:00 Comprehensive LAB 01/27/24 Verified Metabolic Panel 06:00 Thyroid Stimulating LAB 01/27/24 Verified Hormone 05:00 Chest Portable XY 01/27/24 Transmitted 06:00 Abg W/ Co-Ox RT 01/27/24 Transmitted 06:00 Dietary Evaluation Review Comments: 1. Advance to regular diet when medically feasible and pt passes speech eval. 2. If EN is optional and pt remains on Vent, TF Pivot 1.5 @45ml/hr (101g Pro, 1620 kcal supporting pt's needs at 78% Protein and 139% Kcal, 3. TPN per pharmacy if GI access is not available, and NPO > 7 days 4. Pt's protein needs will reduce to 1.2-1.5g/kg BW once off vent. Re-assess her need depending on her BW at the time. Expected Outcomes/Goals: gradual weight loss. Critical Care Time (mins): 81 (critical care time spent was 81 mins) Date of Service: Jan 26, 2024 Billing Provider: BRYCE HULL MD Common Visit Codes: [id number] CARE 30-74 MIN, [id number] CARE-EACH +30MIN BRYCE HULL MD Jan 26, 2024 15:12
[2024-01-26] MEDS: ENOXAPARIN SOD 40 MG/0.4 ML SYRINGE SC ONE (16:03)
[2024-01-26] MEDS: PIPERACILLIN-TAZOB 3.375GM 100 ML IV ONE (16:06)
[2024-01-26] MEDS ORDERED: RIVA10TA PO (17:02)
[2024-01-26] MEDS ORDERED: GLYB5TAB8 PO (17:02)
[2024-01-26] MEDS ORDERED: AMLO1TAB22 PO (17:02)
[2024-01-26] MEDS ORDERED: ARIP400I IM (17:02)
[2024-01-26] MEDS ORDERED: ARIP15TA6 PO (17:02)
[2024-01-26] MEDS ORDERED: HYDR50TA69 PO (17:02)
[2024-01-26] MEDS ORDERED: FLUP10TA12 PO (17:02)
[2024-01-26] MEDS ORDERED: TRAZ1TAB12 PO (17:02)
[2024-01-26] MEDS ORDERED: LEVO50TA7 PO (17:02)
[2024-01-26] MEDS ORDERED: ATOR20TA50 PO (17:02)
[2024-01-26] MEDS ORDERED: OXCA600T3 PO (17:02)
[2024-01-26] MEDS: PIPERACILLIN-TAZOB 3.375GM 100 ML IV SCH (21:55)
[2024-01-27] VITALS (110 sets, daily range): BP systolic 87–173; BP diastolic 27–104; PULSE 44–96; RESP 12–19; TEMP 98.5–99.9; O2SAT 95–100
[2024-01-27 04:20] LABS: Basophils # (auto) 0.1 10 ^3/uL (0-0.2); Basophils % (auto) 0.6 % (0.0-2.0); Eosinophils # (auto) 0.4 10 ^3/uL (0-0.8); Eosinophils % (auto) 3.3 % (0.0-7.0); Hematocrit 41.7 % (36.0-46.0); Hemoglobin 13.5 g/dL (12.2-16.2); Lymphocytes # (auto) 4.2 10 ^3/uL (0.4-5.4); Mean Corpuscular Hemoglobin 31.8 pg (28.0-32.0); Mean Corpuscular Hgb Conc. 32.4 g/dL (32.0-36.0); Mean Corpuscular Volume 98.1 fL (80.0-100.0); Monocytes # (auto) 0.8 10 ^3/uL (0-1.3); Monocytes % (auto) 6.3 % (0.0-12.0); Neutrophils # (auto) 6.7 10 ^3/uL (1.6-8.6); Neutrophils % (auto) 54.8 % (37.0-80.0); Nucleated Red Blood Cells % 0.1 %; Platelet Count (auto) 258 10^3/uL (140-450); Red Blood Cells 4.25 10^6/uL (4.0-5.20); Red Cell Distribution Width 15.5 % (11.8-14.3); White Blood Cell 12.1 10^3/uL (4.4-10.8)
[2024-01-27 04:35] LABS: INR 1.02 (0.9-1.15); Partial Thromboplastin Time 27.5 SEC (24.5-34.5); Prothrombin Time 10.8 sec (9.3-11.8)
[2024-01-27 04:45] LABS: Alanine Aminotransferase 17 U/L (7-40); Alkaline Phosphatase 84 U/L (46-116); Anion Gap 11 (5-15); Aspartate Aminotransferase 25 U/L (13-40); BUN/Creatinine Ratio 5.6 (10.0-20.0); Blood Urea Nitrogen 6 mg/dL (9-23); Calcium 9.8 mg/dL (8.7-10.4); Carbon Dioxide 18 mmol/L (20-31); Chloride 111 mmol/L (98-107); Glucose 121 mg/dL (74-106); Potassium 4.3 mmol/L (3.5-5.1); Sodium 140 mmol/L (136-145)
[2024-01-27 04:46] LABS: Bilirubin, Total 0.6 mg/dL (0.2-1.0); Total Protein 6.6 g/dL (5.7-8.2)
--- NOTE | 2024-01-27 04:55 | DVH ---
CHEST RADIOGRAPH Indication: resp failure Technique: Single frontal view of the chest was obtained COMPARISON: XY CHEST PORTABLE on DOS: 01/26/24, XY CHEST PORTABLE on DOS: 01/24/24, XY CHEST PORTABLE on DOS: 01/24/24 FINDINGS: Lines and Tubes: Endotracheal tube appears slightly high in position at the level of the thoracic inl et. Enteric catheter in satisfactory position. Lungs: Increased congestion. Pleura: No effusion. No pneumothorax. Cardiomediastinal contours: Unremarkable Bones: Unremarkable IMPRESSION: Limited examination secondary to patient rotation. Recommend advancement of endotracheal tube by 2 cm. Diffuse increased congestion.
[2024-01-27] MEDS: ENOXAPARIN SOD 40 MG/0.4 ML SYRINGE SC SCH (10:33)
--- NOTE | 2024-01-27 17:26 | DVHPN2 ---
Progress Note Date Seen: Jan 27, 2024 Medical Necessity Reason Pt with a Central, PICC or Fol: Yes The following are medically ne: Central Line, Menezes Catheter Reason for menezes catheter: Strict I&O Subjective Patient reports: No new complaints Review of Systems: HEENT:Normal, CVS:Normal, RESPIRATORY:Normal, GI:Normal, :Normal, MSK:Normal, NEURO:Normal Objective vital signs Vital Sign Date Time Temp Pulse Resp B/P (MAP) Pulse Ox O2 Delivery O2 Flow Rate FiO2 01/27/24 16:30 99.5 45 16 131/46 (74) 100 211.1 01/27/24 16:09 30 01/27/24 16:00 Mechanical Ventilator+ Total Intake and Output 01/26/24 01/26/24 01/27/24 15:00 23:00 07:00 Intake Total 944.01 ml 444.73 ml 515.07 ml Output Total 1400 ml 1000 ml Balance 944.01 ml -955.27 ml -484.93 ml medications Current Medications Medications Dose Ordered Sig/Jimmy Route Start Time Stop Time Status Last Admin Dose Admin Propofol 100 ml @ 3.51 mls/hr Q24H IV 01/24/24 22:15 01/27/24 14:49 31.59 MLS/HR Fentanyl Citrate 250 ml @ 2.5 mls/hr Q24H IV 01/25/24 01:00 01/27/24 14:46 17.5 MLS/HR Hydralazine HCl 10 mg Q6HP PRN IV 01/25/24 04:15 Levothyroxine Sodium 50 mcg QAM@0600 PO 01/25/24 06:00 01/27/24 05:43 50 MCG Sodium Chloride 10 ml Q8HR IV 01/25/24 06:00 01/27/24 14:00 10 ML Ondansetron HCl 4 mg Q4HP PRN IV 01/25/24 04:15 Nitroglycerin 0.4 mg Q5MINP PRN SL 01/25/24 04:15 Morphine Sulfate 2 mg Q30M PRN IV 01/25/24 04:15 Acetaminophen 650 mg Q6HP PRN GA 01/25/24 04:15 Midazolam HCl 50 ml @ 1 mls/hr Q24H IV 01/25/24 06:45 01/25/24 20:00 1 MLS/HR Norepinephrine Bitartrate 250 ml @ 3.75 mls/hr Q24H IV 01/25/24 06:45 01/26/24 14:30 7.5 MLS/HR Piperacillin Sod/ Tazobactam Sod 100 ml @ 25 mls/hr Q8HR IV 01/26/24 22:00 01/27/24 14:45 25 MLS/HR Enoxaparin Sodium 40 mg DAILY SC 01/27/24 10:00 01/27/24 10:33 40 MG Enteral Nutritional Formula 1,000 ml 30ML/HR GT 01/26/24 15:15 Examination: GENERAL:Normal, HEENT:Normal, NECK:Normal, LUNGS:Normal, LUNGS:Abnormal (intubated), CVS:Normal, ABDOMEN:Normal, MSK:Normal, SKIN:Normal, NEURO:Normal, :Normal laboratory and microbiology Laboratory Tests 01/27/24 03:47 Test 01/27/24 03:47 Range/Units Serum Glucose 121 H 74-106 mg/dL Microbiology Date/Time Source Procedure Growth Status 01/24/24 22:39 Trachea Gram Stain - Final Resulted 01/24/24 22:39 Trachea Respiratory Culture - Preliminary Resulted Problem List/Assessment/Plan Problem List/Assessment/Plan #1 acute resp failure: cont acv, cpap trial in am #2 septic shock with ?pneumonia: iv zosyn #3 schizophrenia/autism #4 obesity #5 hypothyroidism: check tsh #6 h/o 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 Advance to regular diet when medically feasible and pt passes speech eval. 2. If EN is optional and pt remains on Vent, TF Pivot 1.5 @45ml/hr (101g Pro, 1620 kcal supporting pt's needs at 78% Protein and 139% Kcal, 3. TPN per pharmacy if GI access is not available, and NPO > 7 days 4. Pt's protein needs will reduce to 1.2-1.5g/kg BW once off vent. Re-assess her need depending on her BW at the time. Expected Outcomes/Goals: gradual weight loss. Critical Care Time (mins): 46 (critical care time 46 mins) Date of Service: Jan 27, 2024 Billing Provider: BRYCE HULL MD Common Visit Codes: [id number] CARE 30-74 MIN BRYCE HULL MD Jan 27, 2024 17:26
[2024-01-27] MEDS ORDERED: DOPamine 1600MCG/ML D5W 250 ML IV SCH (17:30)
[2024-01-27] MEDS: FUROSEMIDE 20 MG/2 ML VIAL IV ONE (17:45)
[2024-01-27] MEDS: DOPamine 1600MCG/ML D5W 250 ML IV SCH (17:45)
[2024-01-28] VITALS (106 sets, daily range): BP systolic 83–161; BP diastolic 31–84; PULSE 52–105; RESP 13–22; TEMP 97.5–99.7; O2SAT 98–100
[2024-01-28 03:42] LABS: Basophils # (auto) 0.1 10 ^3/uL (0-0.2); Eosinophils # (auto) 0.5 10 ^3/uL (0-0.8); Hematocrit 44.1 % (36.0-46.0); Hemoglobin 14.9 g/dL (12.2-16.2); Lymphocytes % (auto) 18.6 % (10.0-50.0); Mean Corpuscular Hemoglobin 32.2 pg (28.0-32.0); Mean Corpuscular Hgb Conc. 33.7 g/dL (32.0-36.0); Mean Corpuscular Volume 95.4 fL (80.0-100.0); Monocytes # (auto) 0.8 10 ^3/uL (0-1.3); Monocytes % (auto) 7.5 % (0.0-12.0); Neutrophils # (auto) 7.5 10 ^3/uL (1.6-8.6); Neutrophils % (auto) 67.9 % (37.0-80.0); Nucleated Red Blood Cells % 0.1 %; Platelet Count (auto) 314 10^3/uL (140-450); Red Blood Cells 4.62 10^6/uL (4.0-5.20); Red Cell Distribution Width 15.2 % (11.8-14.3)
[2024-01-28 03:46] LABS: Chloride 106 mmol/L (98-107); Potassium 4.1 mmol/L (3.5-5.1); Sodium 141 mmol/L (136-145)
[2024-01-28 03:53] LABS: BUN/Creatinine Ratio 5.7 (10.0-20.0)
[2024-01-28 04:29] LABS: Blood Urea Nitrogen 7 mg/dL (9-23); Calcium 10.6 mg/dL (8.7-10.4); Glucose 222 mg/dL (74-106)
--- NOTE | 2024-01-28 04:29 | DVH ---
CHEST RADIOGRAPH Indication: resp failure Technique: Single frontal view of the chest was obtained Comparison: XY CHEST PORTABLE on DOS: 01/27/24 FINDINGS: Lines and Tubes: The endotracheal tube terminates 3.2 cm above the chey. The enteric tube courses b elow the left hemidiaphragm and terminates in the stomach. Lungs: Decreased pulmonary vascular congestion. No focal consolidation. Pleura: No effusion. No pneumothorax. Cardiomediastinal contours: Unremarkable Bones: No acute osseous abnormality. IMPRESSION: 1. Endotracheal tube terminates 3.2 cm above the chey. 2. Decreased pulmonary vascular congestion.
[2024-01-28] MEDS: Jevity 1.2 Cal/Fiber 1 Liter GT SCH (04:38)
[2024-01-28 06:05] LABS: Anion Gap 11 (5-15); Carbon Dioxide 24 mmol/L (20-31)
[2024-01-28 06:56] LABS: Base Excess -0.6 mmol/L (-2.0-3.0)
[2024-01-28] MEDS ORDERED: DEXTROSE (50%) 50ML SYRG IV PRN (09:45)
[2024-01-28] MEDS ORDERED: PATIENTS OWN MEDICATION PO SCH ×2 (10:00)
[2024-01-28] MEDS: QUEtiapine FUMARATE 100 MG TAB PO SCH (11:43)
[2024-01-28] MEDS: ACCU-CHEK COMFORT CURVE STRIP VI SCH (11:54)
[2024-01-28] MEDS: InsuLIN REG 1unit/0.01ml Soln (100units/ml) SC SCH (11:56)
[2024-01-28] MEDS: OXcarbazepine 300 MG TAB PO SCH (11:59)
--- NOTE | 2024-01-28 15:19 | DVHPN2 ---
Progress Note Date Seen: Jan 28, 2024 Medical Necessity Reason Pt with a Central, PICC or Fol: Yes The following are medically ne: Central Line, Menezes Catheter Reason for menezes catheter: Strict I&O Subjective Patient reports: No new complaints Review of Systems: HEENT:Normal, CVS:Normal, RESPIRATORY:Normal, GI:Normal, :Normal, MSK:Normal, NEURO:Normal Objective vital signs Vital Sign Date Time Temp Pulse Resp B/P (MAP) Pulse Ox O2 Delivery O2 Flow Rate FiO2 01/28/24 15:14 96/51 01/28/24 14:45 99.1 69 16 100 210.4 01/28/24 14:20 30 01/28/24 14:00 Mechanical Ventilator+ Total Intake and Output 01/27/24 01/27/24 01/28/24 15:00 23:00 07:00 Intake Total 527.72 ml 885.782 ml 1165.028 ml Output Total 900 ml 1175 ml 2900 ml Balance -372.28 ml -289.218 ml -1734.972 ml medications Current Medications Medications Dose Ordered Sig/Jimmy Route Start Time Stop Time Status Last Admin Dose Admin Propofol 100 ml @ 3.51 mls/hr Q24H IV 01/24/24 22:15 01/28/24 14:04 14.04 MLS/HR Fentanyl Citrate 250 ml @ 2.5 mls/hr Q24H IV 01/25/24 01:00 01/28/24 03:43 20 MLS/HR Hydralazine HCl 10 mg Q6HP PRN IV 01/25/24 04:15 Levothyroxine Sodium 50 mcg QAM@0600 PO 01/25/24 06:00 01/28/24 05:41 50 MCG Sodium Chloride 10 ml Q8HR IV 01/25/24 06:00 01/28/24 14:05 10 ML Ondansetron HCl 4 mg Q4HP PRN IV 01/25/24 04:15 Nitroglycerin 0.4 mg Q5MINP PRN SL 01/25/24 04:15 Morphine Sulfate 2 mg Q30M PRN IV 01/25/24 04:15 Acetaminophen 650 mg Q6HP PRN TN 01/25/24 04:15 Midazolam HCl 50 ml @ 1 mls/hr Q24H IV 01/25/24 06:45 01/28/24 09:52 4 MLS/HR Norepinephrine Bitartrate 250 ml @ 3.75 mls/hr Q24H IV 01/25/24 06:45 01/26/24 14:30 7.5 MLS/HR Piperacillin Sod/ Tazobactam Sod 100 ml @ 25 mls/hr Q8HR IV 01/26/24 22:00 01/28/24 14:05 25 MLS/HR Enoxaparin Sodium 40 mg DAILY SC 01/27/24 10:00 01/28/24 10:00 40 MG Enteral Nutritional Formula 1,000 ml 30ML/HR GT 01/26/24 15:15 01/28/24 04:38 1,000 ML Dopamine HCl/ Dextrose 250 ml @ 20.513 mls/ hr [id number] IV 01/27/24 17:30 01/28/24 15:14 45.128 MLS/HR Diagnostic Test (Pha) 1 strip Q6HR 01/28/24 12:00 01/28/24 11:54 1 STRIP Insulin Human Regular Q6HR SC 01/28/24 12:00 01/28/24 11:56 3 UNITS Dextrose 50 ml UD PRN IV 01/28/24 09:45 Patient Own Medication 1 DAILY PO 01/28/24 16:00 Patient Own Medication 1 DAILY@2200 PO 01/29/24 22:00 Patient Own Medication 1 BID PO 01/28/24 22:00 Examination: GENERAL:Normal, HEENT:Normal, NECK:Normal, LUNGS:Normal, LUNGS:Abnormal (intubated), CVS:Normal, ABDOMEN:Normal, MSK:Normal, SKIN:Normal, NEURO:Normal, :Normal laboratory and microbiology Laboratory Tests 01/28/24 03:19 Test 01/28/24 03:19 Range/Units Serum Glucose 222 H 74-106 mg/dL Microbiology Date/Time Source Procedure Growth Status 01/24/24 22:39 Trachea Gram Stain - Final Complete 01/24/24 22:39 Trachea Respiratory Culture - Final Complete Problem List/Assessment/Plan Problem List/Assessment/Plan #1 acute resp failure: cont acv, cpap trial in am #2 septic shock with ?pneumonia: iv zosyn #3 schizophrenia/autism: resume meds #4 obesity #5 hypothyroidism: check tsh #6 h/o 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 #7 gi prophylaxis Plan discussed with: Other (rn) My Orders My Orders Orders - BRYCE HULL MD Procedure Category Date Status Time Cpap Trial For Am ORDERS 01/27/24 Transmitted 17:20 Chest Portable XY 01/28/24 Resulted 06:00 Abg W/ Co-Ox RT 01/28/24 Logged 06:00 Dopamine 1600mcg/Ml PHA 01/27/24 In Process [id number] 17:30 Communication Order ORDERS 01/27/24 Transmitted 17:27 Communication Order ORDERS 01/27/24 Transmitted 17:30 Glucose Blood PHA 01/28/24 In Process (Accu-Chek Comfort 12:00 Insulin R (Human) PHA 01/28/24 In Process (Insulin R) 12:00 Dextrose 50% Syringe PHA 01/28/24 In Process 09:45 Cpap/Sed Vacation Med ORDERS 01/28/24 Transmitted Weaning 10:01 Patients Own PHA 01/28/24 In Process Medication 16:00 Patients Own PHA 01/29/24 In Process Medication 22:00 Patients Own PHA 01/28/24 In Process Medication 22:00 Cpap Trial For Am ORDERS 01/28/24 Verified 15:15 Complete Blood Count LAB 01/29/24 Verified 06:00 Basic Metabolic Panel LAB 01/29/24 Verified 06:00 Chest Portable XY 01/29/24 Verified 06:00 Abg W/ Co-Ox RT 01/29/24 Verified 06:00 Dietary Evaluation Review Comments: 1. Advance to regular diet when medically feasible and pt passes speech eval. 2. If EN is optional and pt remains on Vent, TF Pivot 1.5 @45ml/hr (101g Pro, 1620 kcal supporting pt's needs at 78% Protein and 139% Kcal, 3. TPN per pharmacy if GI access is not available, and NPO > 7 days 4. Pt's protein needs will reduce to 1.2-1.5g/kg BW once off vent. Re-assess her need depending on her BW at the time. Expected Outcomes/Goals: gradual weight loss. Critical Care Time (mins): 39 (critical care time 39 mins) Date of Service: Jan 28, 2024 Billing Provider: BRYCE HULL MD Common Visit Codes: [id number] CARE 30-74 MIN BRYCE HULL MD Jan 28, 2024 15:19
[2024-01-28] MEDS: OXCARBAZEPINE 150 MG TABLET PO SCH (21:48)
[2024-01-29] VITALS (112 sets, daily range): BP systolic 79–187; BP diastolic 43–109; PULSE 66–155; RESP 10–27; TEMP 97–100.4; O2SAT 97–100
[2024-01-29 04:21] LABS: Basophils # (auto) 0 10 ^3/uL (0-0.2); Basophils % (auto) 0.3 % (0.0-2.0); Eosinophils # (auto) 0.5 10 ^3/uL (0-0.8); Eosinophils % (auto) 4.4 % (0.0-7.0); Hematocrit 45.5 % (36.0-46.0); Hemoglobin 15.3 g/dL (12.2-16.2); Lymphocytes # (auto) 2.5 10 ^3/uL (0.4-5.4); Lymphocytes % (auto) 23.3 % (10.0-50.0); Mean Corpuscular Hemoglobin 32.5 pg (28.0-32.0); Mean Corpuscular Hgb Conc. 33.7 g/dL (32.0-36.0); Mean Corpuscular Volume 96.6 fL (80.0-100.0); Monocytes # (auto) 1.5 10 ^3/uL (0-1.3); Monocytes % (auto) 14.5 % (0.0-12.0); Neutrophils # (auto) 6.1 10 ^3/uL (1.6-8.6); Neutrophils % (auto) 57.5 % (37.0-80.0); Platelet Count (auto) 274 10^3/uL (140-450); Red Blood Cells 4.71 10^6/uL (4.0-5.20); White Blood Cell 10.6 10^3/uL (4.4-10.8)
[2024-01-29 04:37] LABS: Chloride 107 mmol/L (98-107); Potassium 4.1 mmol/L (3.5-5.1); Sodium 141 mmol/L (136-145)
[2024-01-29 04:38] LABS: Anion Gap 11 (5-15); Carbon Dioxide 23 mmol/L (20-31)
[2024-01-29 04:43] LABS: BUN/Creatinine Ratio 7.6 (10.0-20.0); Blood Urea Nitrogen 9 mg/dL (9-23); Calcium 10.5 mg/dL (8.7-10.4); Glucose 221 mg/dL (74-106)
--- NOTE | 2024-01-29 04:52 | DVH ---
CHEST RADIOGRAPH Indication: resp failure Technique: Single frontal view of the chest was obtained Comparison: XY CHEST PORTABLE on DOS: 01/28/24 FINDINGS: Lines and Tubes: The endotracheal tube terminates 3.27 above the chey. The enteric tube terminates in the stomach. Lungs: Improved pulmonary vascular congestion. No focal consolidation. Pleura: No effusion. No pneumothorax. Cardiomediastinal contours: Stable. Bones: No acute osseous abnormality. IMPRESSION: 1. Continued improvement of pulmonary vascular congestion.
[2024-01-29 07:04] LABS: Base Excess -0.7 mmol/L (-2.0-3.0)
[2024-01-29 13:09] LABS: Base Excess -4.9 mmol/L (-2.0-3.0)
[2024-01-29] MEDS: ONDANSETRON HCL 4 MG/2 ML VIAL IV PRN (13:12)
[2024-01-29] MEDS: LORazepam 2MG/ML-1ML VIAL IV PRN (13:12)
--- NOTE | 2024-01-29 13:15 | DVHPN2 ---
Progress Note Date Seen: Jan 29, 2024 Medical Necessity Reason Pt with a Central, PICC or Fol: Yes The following are medically ne: Central Line, Menezes Catheter Reason for menezes catheter: Strict I&O Subjective Patient reports: No new complaints Review of Systems: HEENT:Normal, CVS:Normal, RESPIRATORY:Normal, GI:Normal, :Normal, MSK:Normal, NEURO:Normal Objective vital signs Vital Sign Date Time Temp Pulse Resp B/P (MAP) Pulse Ox O2 Delivery O2 Flow Rate FiO2 01/29/24 12:00 16 100 Mechanical Ventilator+ 30 30 01/29/24 12:00 140 01/29/24 12:00 96/57 (70) 01/29/24 10:15 99.3 210.7 Total Intake and Output 01/28/24 01/28/24 01/29/24 15:00 23:00 07:00 Intake Total 698.908 ml 833.844 ml 921.844 ml Output Total 500 ml 800 ml Balance 698.908 ml 333.844 ml 121.844 ml medications Current Medications Medications Dose Ordered Sig/Jimmy Route Start Time Stop Time Status Last Admin Dose Admin Propofol 100 ml @ 3.51 mls/hr Q24H IV 01/24/24 22:15 01/29/24 03:32 14.04 MLS/HR Fentanyl Citrate 250 ml @ 2.5 mls/hr Q24H IV 01/25/24 01:00 01/28/24 03:43 20 MLS/HR Hydralazine HCl 10 mg Q6HP PRN IV 01/25/24 04:15 Levothyroxine Sodium 50 mcg QAM@0600 PO 01/25/24 06:00 01/29/24 05:12 50 MCG Sodium Chloride 10 ml Q8HR IV 01/25/24 06:00 01/29/24 05:12 10 ML Ondansetron HCl 4 mg Q4HP PRN IV 01/25/24 04:15 01/29/24 13:12 4 MG Nitroglycerin 0.4 mg Q5MINP PRN SL 01/25/24 04:15 Morphine Sulfate 2 mg Q30M PRN IV 01/25/24 04:15 Acetaminophen 650 mg Q6HP PRN MD 01/25/24 04:15 Midazolam HCl 50 ml @ 1 mls/hr Q24H IV 01/25/24 06:45 01/28/24 09:52 4 MLS/HR Norepinephrine Bitartrate 250 ml @ 3.75 mls/hr Q24H IV 01/25/24 06:45 01/28/24 15:59 3.75 MLS/HR Piperacillin Sod/ Tazobactam Sod 100 ml @ 25 mls/hr Q8HR IV 01/26/24 22:00 01/29/24 05:12 25 MLS/HR Enoxaparin Sodium 40 mg DAILY SC 01/27/24 10:00 01/29/24 10:13 40 MG Enteral Nutritional Formula 1,000 ml 30ML/HR GT 01/26/24 15:15 01/28/24 04:38 1,000 ML Dopamine HCl/ Dextrose 250 ml @ 20.513 mls/ hr [id number] IV 01/27/24 17:30 01/29/24 08:49 20.513 MLS/HR Diagnostic Test (Pha) 1 strip Q6HR 01/28/24 12:00 01/29/24 12:00 1 STRIP Insulin Human Regular Q6HR SC 01/28/24 12:00 01/29/24 05:17 4 UNITS Dextrose 50 ml UD PRN IV 01/28/24 09:45 Patient Own Medication 1 DAILY PO 01/28/24 16:00 01/29/24 10:13 1 Patient Own Medication 1 DAILY@2200 PO 01/29/24 22:00 Patient Own Medication 1 BID PO 01/28/24 22:00 01/29/24 10:13 1 Lorazepam 1 mg Q4HPRN PRN IV 01/29/24 13:00 01/29/24 13:12 1 MG Examination: GENERAL:Normal, HEENT:Normal, NECK:Normal, LUNGS:Normal, LUNGS:Abnormal (intubated), CVS:Normal, ABDOMEN:Normal, MSK:Normal, SKIN:Normal, NEURO:Normal, :Normal laboratory and microbiology Laboratory Tests 01/29/24 03:49 Test 01/29/24 03:49 Range/Units Serum Glucose 221 H 74-106 mg/dL Microbiology Date/Time Source Procedure Growth Status 01/24/24 22:39 Trachea Gram Stain - Final Complete 01/24/24 22:39 Trachea Respiratory Culture - Final Complete Problem List/Assessment/Plan Problem List/Assessment/Plan #1 acute resp failure: cont acv, cpap trial #2 septic shock with ?pneumonia: iv zosyn #3 schizophrenia/autism: resume meds #4 obesity #5 hypothyroidism: check tsh #6 h/o 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 #7 gi prophylaxis Plan discussed with: Other (rn) My Orders My Orders Orders - BRYCE HULL MD Procedure Category Date Status Time Patients Own PHA 01/28/24 In Process Medication 16:00 Patients Own PHA 01/29/24 In Process Medication 22:00 Patients Own PHA 01/28/24 In Process Medication 22:00 Cpap Trial For Am ORDERS 01/28/24 Transmitted 15:15 Chest Portable XY 01/29/24 Resulted 06:00 Abg W/ Co-Ox RT 01/29/24 Logged 06:00 Cpap Trial For Am ORDERS 01/29/24 Transmitted 11:35 Lorazepam 2mg/Ml Inj PHA 01/29/24 In Process (Ativan Inj) 13:00 Complete Blood Count LAB 01/30/24 Verified 06:00 Comprehensive LAB 01/30/24 Verified Metabolic Panel 06:00 Chest Portable XY 01/30/24 Verified 06:00 Dietary Evaluation Review Comments: 1. Advance to regular diet when medically feasible and pt passes speech eval. 2. If EN is optional and pt remains on Vent, TF Pivot 1.5 @45ml/hr (101g Pro, 1620 kcal supporting pt's needs at 78% Protein and 139% Kcal, 3. TPN per pharmacy if GI access is not available, and NPO > 7 days 4. Pt's protein needs will reduce to 1.2-1.5g/kg BW once off vent. Re-assess her need depending on her BW at the time. Expected Outcomes/Goals: gradual weight loss. Critical Care Time (mins): 84 (critical care time including cpap trial is 84 mins) Date of Service: Jan 29, 2024 Billing Provider: BRYCE HULL MD Common Visit Codes: [id number] CARE 30-74 MIN, [id number] CARE-EACH +30MIN BRYCE HULL MD Jan 29, 2024 13:15
[2024-01-29 17:45] LABS: Base Excess -2.1 mmol/L (-2.0-3.0)
[2024-01-29] MEDS: QUETIAPINE 300 MG PO SCH (22:00)
[2024-01-29] MEDS: HALOPERIDOL LACTATE 5 MG/ML INJ VIAL IM PRN (23:13)
[2024-01-30] VITALS (40 sets, daily range): BP systolic 98–148; BP diastolic 52–97; PULSE 88–151; RESP 10–29; TEMP 97.8–99.8; O2SAT 92–100
[2024-01-30 04:01] LABS: Basophils # (auto) 0 10 ^3/uL (0-0.2); Basophils % (auto) 0.4 % (0.0-2.0); Eosinophils # (auto) 0.4 10 ^3/uL (0-0.8); Eosinophils % (auto) 3.7 % (0.0-7.0); Hematocrit 40.9 % (36.0-46.0); Hemoglobin 13.7 g/dL (12.2-16.2); Lymphocytes # (auto) 3.9 10 ^3/uL (0.4-5.4); Lymphocytes % (auto) 36.1 % (10.0-50.0); Mean Corpuscular Hemoglobin 32.7 pg (28.0-32.0); Mean Corpuscular Hgb Conc. 33.5 g/dL (32.0-36.0); Mean Corpuscular Volume 97.4 fL (80.0-100.0); Monocytes # (auto) 1.2 10 ^3/uL (0-1.3); Neutrophils # (auto) 5.3 10 ^3/uL (1.6-8.6); Neutrophils % (auto) 48.8 % (37.0-80.0); Nucleated Red Blood Cells % 0.1 %; Platelet Count (auto) 283 10^3/uL (140-450); Red Blood Cells 4.19 10^6/uL (4.0-5.20); Red Cell Distribution Width 15.3 % (11.8-14.3); White Blood Cell 10.8 10^3/uL (4.4-10.8)
[2024-01-30 04:24] LABS: Alanine Aminotransferase 22 U/L (7-40); Albumin 4.4 g/dL (3.2-4.8); Alkaline Phosphatase 85 U/L (46-116); Anion Gap 6 (5-15); Aspartate Aminotransferase 33 U/L (13-40); BUN/Creatinine Ratio 8.4 (10.0-20.0); Calcium 10.4 mg/dL (8.7-10.4); Carbon Dioxide 26 mmol/L (20-31); Glucose 98 mg/dL (74-106); Potassium 4.4 mmol/L (3.5-5.1); Sodium 142 mmol/L (136-145)
[2024-01-30 04:25] LABS: Bilirubin, Total 0.7 mg/dL (0.2-1.0); Total Protein 7.2 g/dL (5.7-8.2)
[2024-01-30 04:37] LABS: Blood Urea Nitrogen 9 mg/dL (9-23); Chloride 110 mmol/L (98-107)
--- NOTE | 2024-01-30 05:44 | DVH ---
CHEST RADIOGRAPH Indication: resp failure Technique: Single frontal view of the chest was obtained Comparison: XY CHEST PORTABLE on DOS: 01/29/24 FINDINGS: Lines and Tubes: None Lungs: There is pulmonary vascular congestion. Pleura: No effusion. No pneumothorax. Cardiomediastinal contours: Unremarkable Bones: No acute osseous abnormality. IMPRESSION: 1. Pulmonary vascular congestion, stable.
[2024-01-30 08:06] LABS: Base Excess -2.3 mmol/L (-2.0-3.0)
[2024-01-30] MEDS: SODIUM CHLORIDE 0.9% 500 ML IV ONE (12:00)
[2024-01-30] MEDS: LEVALBUTEROL HCL 1.25 MG/3 ML NEB NEB SCH (12:29)
--- NOTE | 2024-01-30 15:04 | DVHPN2 ---
Progress Note Date Seen: Jan 30, 2024 Medical Necessity Reason Pt with a Central, PICC or Fol: Yes The following are medically ne: Central Line, Menezes Catheter Reason for menezes catheter: Strict I&O Subjective Patient reports: No new complaints (Patient is A0 X 2 ) Review of Systems: HEENT:Abnormal (cannot be obtained ) Objective vital signs Vital Sign Date Time Temp Pulse Resp B/P (MAP) Pulse Ox O2 Delivery O2 Flow Rate FiO2 01/30/24 14:00 108 01/30/24 14:00 19 98 Nasal Cannula* 1 01/30/24 13:00 123/56 (78) 01/30/24 09:00 97.8 97.8 Total Intake and Output 01/29/24 01/29/24 01/30/24 15:00 23:00 07:00 Intake Total 184.586 ml 180.00 ml 103.75 ml Output Total 400 ml 250 ml Balance 184.586 ml -220.00 ml -146.25 ml medications Current Medications Medications Dose Ordered Sig/Jimmy Route Start Time Stop Time Status Last Admin Dose Admin Hydralazine HCl 10 mg Q6HP PRN IV 01/25/24 04:15 Levothyroxine Sodium 50 mcg QAM@0600 PO 01/25/24 06:00 01/29/24 05:12 50 MCG Sodium Chloride 10 ml Q8HR IV 01/25/24 06:00 01/30/24 05:52 10 ML Ondansetron HCl 4 mg Q4HP PRN IV 01/25/24 04:15 01/29/24 13:12 4 MG Nitroglycerin 0.4 mg Q5MINP PRN SL 01/25/24 04:15 Morphine Sulfate 2 mg Q30M PRN IV 01/25/24 04:15 Acetaminophen 650 mg Q6HP PRN [place] 01/25/24 04:15 Midazolam HCl 50 ml @ 1 mls/hr Q24H IV 01/25/24 06:45 01/28/24 09:52 4 MLS/HR Norepinephrine Bitartrate 250 ml @ 3.75 mls/hr Q24H IV 01/25/24 06:45 01/28/24 15:59 3.75 MLS/HR Piperacillin Sod/ Tazobactam Sod 100 ml @ 25 mls/hr Q8HR IV 01/26/24 22:00 01/30/24 05:48 25 MLS/HR Enoxaparin Sodium 40 mg DAILY SC 01/27/24 10:00 01/30/24 10:28 40 MG Enteral Nutritional Formula 1,000 ml 30ML/HR GT 01/26/24 15:15 01/28/24 04:38 1,000 ML Diagnostic Test (Pha) 1 strip Q6HR 01/28/24 12:00 01/30/24 12:08 1 STRIP Insulin Human Regular Q6HR SC 01/28/24 12:00 01/29/24 05:17 4 UNITS Dextrose 50 ml UD PRN IV 01/28/24 09:45 Patient Own Medication 1 DAILY PO 01/28/24 16:00 01/29/24 10:13 1 Patient Own Medication 1 DAILY@2200 PO 01/29/24 22:00 Patient Own Medication 1 BID PO 01/28/24 22:00 01/29/24 10:13 1 Lorazepam 1 mg Q4HPRN PRN IV 01/29/24 13:00 01/30/24 12:01 1 MG Haloperidol Lactate 5 mg Q6HP PRN IM 01/29/24 16:00 01/30/24 14:54 5 MG Levalbuterol HCl 0.625 mg Q6HR NEB 01/30/24 12:00 01/30/24 12:29 0.625 MG Examination: GENERAL:Abnormal, LUNGS:Abnormal (bilateral wheezing ), CVS:Normal, SKIN:Normal, NEURO:Abnormal laboratory and microbiology Laboratory Tests 01/30/24 03:18 Test 01/30/24 03:18 Range/Units Serum Glucose 98 74-106 mg/dL Microbiology Date/Time Source Procedure Growth Status 01/24/24 22:39 Trachea Gram Stain - Final Complete 01/24/24 22:39 Trachea Respiratory Culture - Final Complete Problem List/Assessment/Plan Problem List/Assessment/Plan Acute hypoxic hypercarbic respiratory failure - patient extubated yesterday. ABG reviewed. Repeat ABG reviewed showing improvement. Continue nasal cannula. Patient can be downgraded to ANDR[facility] Septic shock due to pneumonia - continue IV Zosyn Schizophrenia - resuming medications Hypothyroidism - checking free T3 and T4. TSH reviewed Swallow evaluation. PT consult Pysch consult noted regarding [id number] Plan discussed with: Other My Orders My Orders Orders - HEIKE ZARATE MD Procedure Category Date Status Time Levalbuterol Hcl PHA 01/30/24 In Process (Xopenex Medneb) 12:00 Abg W/ Co-Ox RT 01/30/24 Logged 14:00 Complete Blood Count LAB 01/31/24 Verified 04:00 Basic Metabolic Panel LAB 01/31/24 Verified 04:00 Dietary Evaluation Review Comments: 1. Advance to regular diet when medically feasible and pt passes speech eval. 2. If EN is optional and pt remains on Vent, TF Pivot 1.5 @45ml/hr (101g Pro, 1620 kcal supporting pt's needs at 78% Protein and 139% Kcal, 3. TPN per pharmacy if GI access is not available, and NPO > 7 days 4. Pt's protein needs will reduce to 1.2-1.5g/kg BW once off vent. Re-assess her need depending on her BW at the time. Expected Outcomes/Goals: gradual weight loss. Date of Service: Jan 30, 2024 Billing Provider: HEIKE ZARATE MD Common Visit Codes: [id number] CARE 30-74 MIN HEIKE ZARATE MD Jan 30, 2024 15:04
[2024-01-30] MEDS: QUEtiapine FUMARATE 100 MG TAB PO SCH (21:27)
[2024-01-30] MEDS ORDERED: LEVALBUTEROL HCL 1.25 MG/3 ML NEB NEB PRN (23:45)
[2024-01-31] VITALS (21 sets, daily range): BP systolic 93–157; BP diastolic 43–92; PULSE 99–152; RESP 14–80; TEMP 98.1–99.8; O2SAT 96–100
[2024-01-31 06:03] LABS: Basophils # (auto) 0.1 10 ^3/uL (0-0.2); Basophils % (auto) 0.8 % (0.0-2.0); Eosinophils # (auto) 0.3 10 ^3/uL (0-0.8); Eosinophils % (auto) 3.8 % (0.0-7.0); Hematocrit 37.9 % (36.0-46.0); Hemoglobin 12.7 g/dL (12.2-16.2); Lymphocytes # (auto) 3.1 10 ^3/uL (0.4-5.4); Lymphocytes % (auto) 33.5 % (10.0-50.0); Mean Corpuscular Hemoglobin 32.1 pg (28.0-32.0); Mean Corpuscular Hgb Conc. 33.5 g/dL (32.0-36.0); Monocytes # (auto) 0.7 10 ^3/uL (0-1.3); Monocytes % (auto) 7.5 % (0.0-12.0); Neutrophils % (auto) 54.4 % (37.0-80.0); Platelet Count (auto) 286 10^3/uL (140-450); Red Blood Cells 3.94 10^6/uL (4.0-5.20); Red Cell Distribution Width 14.7 % (11.8-14.3); White Blood Cell 9.2 10^3/uL (4.4-10.8)
[2024-01-31 06:36] LABS: Calcium 9.9 mg/dL (8.7-10.4); Potassium 3.9 mmol/L (3.5-5.1); Sodium 144 mmol/L (136-145)
[2024-01-31 06:37] LABS: Anion Gap 9 (5-15); Carbon Dioxide 27 mmol/L (20-31)
[2024-01-31 06:42] LABS: BUN/Creatinine Ratio 14.6 (10.0-20.0); Blood Urea Nitrogen 12 mg/dL (9-23); Glucose 91 mg/dL (74-106)
[2024-01-31 06:45] LABS: Free T3 2.88 pg/mL (2.3-4.2); Free T4 (Free Thyroxine) 1.08 ng/dL (0.89-1.76)
[2024-01-31 06:50] LABS: Chloride 108 mmol/L (98-107)
--- NOTE | 2024-01-31 16:55 | DVHPN2 ---
Subjective agitated and trying to go backwards in bed to floor/grabbing things around to throw/fighting both sitters and myself called security and placed on restraints because is causing threat to self and others- did not talk much Changes from previous H/P or p: No Changes Eyes: No Pain, No Vision change, No Conjunctivae inflammation, No Eyelid inflammation, No Other, No Redness ENT: No Ear pain, No Ear discharge, No Nose pain, No Nose discharge, No Nose congestion, No Mouth pain, No Mouth swelling, No Throat pain, No Throat swelling, No Other Cardiovascular: No Chest Pain, No Palpitations, No Orthopnea, No Paroxysmal Noc. Dyspnea, No Edema, No Lt Headedness, No Other Respiratory: No Cough, No Dry, No Shortness of breath, No SOB with excertion, No Wheezing, No Hemoptysis, No Pleuritic Pain, No Sputum, No Other Gastrointestinal: No Nausea, No Vomiting, No Abdominal Pain, No Diarrhea, No Constipation, No Melena, No Hematochezia, No Other Genitourinary: No Dysuria, No Frequency, No Incontinence, No Hematuria, No Retention, No Other Musculoskeletal: No other, No neck pain, No shoulder pain, No arm pain, No back pain, No hand pain, No leg pain, No foot pain Skin: No Rash, No Lesions, No Jaundice, No Bruising; Other (Hematoma occipital region) Objective Vitals Vital Signs Date Time Temp Pulse Resp B/P (MAP) Pulse Ox O2 Delivery O2 Flow Rate FiO2 01/31/24 13:00 105 22 145/79 (101) 96 01/31/24 11:00 Room Air 01/31/24 11:00 0 21 01/31/24 08:00 98.1 98.1 Intake/Output Intake and Output 01/31/24 07:00 Intake Total 770 ml Output Total 1200 ml Balance -430 ml Intake Oral 20 ml IV Total 250 ml Other 500 ml Output Urine Total 1200 ml General Appearance: Alert, Other (agitated/this was her baseline on admission is supposed to have tele psych appt today) Lungs: Clear to auscultation Cardiovascular: Regular rate, Normal S1, Normal S2 Abdomen: Normal bowel sounds, Soft, No tenderness Musculoskeletal: Normal motor function, Other Neuro: Strength at 5/5 X4 ext, Normal tone, Other (did not talk much/was not able to asses sensation as pt is confused/agitated) Medications Current Medications Medications Dose Ordered Sig/Jimmy Route Start Time Stop Time Status Last Admin Dose Admin Hydralazine HCl 10 mg Q6HP PRN IV 01/25/24 04:15 Levothyroxine Sodium 50 mcg QAM@0600 PO 01/25/24 06:00 01/31/24 05:27 50 MCG Sodium Chloride 10 ml Q8HR IV 01/25/24 06:00 01/31/24 15:16 10 ML Ondansetron HCl 4 mg Q4HP PRN IV 01/25/24 04:15 01/29/24 13:12 4 MG Nitroglycerin 0.4 mg Q5MINP PRN SL 01/25/24 04:15 Morphine Sulfate 2 mg Q30M PRN IV 01/25/24 04:15 Acetaminophen 650 mg Q6HP PRN [place] 01/25/24 04:15 Piperacillin Sod/ Tazobactam Sod 100 ml @ 25 mls/hr Q8HR IV 01/26/24 22:00 01/31/24 15:26 25 MLS/HR Enoxaparin Sodium 40 mg DAILY SC 01/27/24 10:00 01/31/24 09:51 40 MG Enteral Nutritional Formula 1,000 ml 30ML/HR GT 01/26/24 15:15 01/28/24 04:38 1,000 ML Diagnostic Test (Pha) 1 strip Q6HR 01/28/24 12:00 01/31/24 15:15 1 STRIP Insulin Human Regular Q6HR SC 01/28/24 12:00 01/30/24 23:52 2 UNITS Dextrose 50 ml UD PRN IV 01/28/24 09:45 Patient Own Medication 1 DAILY PO 01/28/24 16:00 01/31/24 09:52 1 Patient Own Medication 1 BID PO 01/28/24 22:00 01/31/24 09:52 1 Lorazepam 1 mg Q4HPRN PRN IV 01/29/24 13:00 01/31/24 13:47 1 MG Haloperidol Lactate 5 mg Q6HP PRN IM 01/29/24 16:00 01/31/24 14:46 5 MG Quetiapine Fumarate 150 mg BID PO 01/30/24 22:00 01/31/24 09:49 150 MG Levalbuterol HCl 0.625 mg Q6HP PRN NEB 01/30/24 23:45 Laboratory Results Laboratory Tests 01/31/24 05:27 Chemistry Test 01/31/24 05:27 Calcium Level 9.9 mg/dL (8.7-10.4) Urinalysis Test 01/25/24 05:03 Urine Color Yellow (Yellow) Urine Clarity Turbid (Clear) H Urine pH 5.5 (5.0-9.0) Urine Specific [place] 1.029 (1.001-1.035) Urine Protein 1+ (Negative) H Urine Ketones 1+ (Negative) H Urine Blood Negative /uL (Negative) Urine Nitrite Negative (Negative) Urine Bilirubin Negative (Negative) Urine Urobilinogen 2 mg/dL (Negative) H Urine Leukocyte Esterase 1+ /uL (Negative) Urine RBC 2 /hpf (0 - 4) Urine WBC 10 /hpf (0 - 5) Urine Squamous Epithelial Cells Few /hpf (<5) Urine Calcium Oxalate Crystals Mod (None Seen) Urine Amorphous Crystals Few /hpf (None Seen) Urine Bacteria None seen /hpf (None Seen) Urine Hyaline Casts Mod /lpf (0 - 2) Urine Mucus Few (None Seen) Urine Glucose Normal mg/dL (Normal) Urine Test Negative (Negative) Microbiology Microbiology Date/Time Source Procedure Growth Status 01/24/24 22:39 Trachea Gram Stain - Final Complete 01/24/24 22:39 Trachea Respiratory Culture - Final Complete Labs and/or images reviewed: Labs reviewed by me, Image(s) reviewed by me Assessment/Plan Assessment/Plan schizhophrenia with agitation- pulse ox today is 98% on room air NEEDS CLOSED PSYCH UNIT FOR SAFETY AND TREATMENT ALSO- doubt will be able to cooperate with tele psych sick euthyroid syndrome very moble in bed- no indication for dvt prophylaxis Plan discussed with: Patient, Other My Orders Orders - LA SANTOYO MD Procedure Category Date Status Time Behavioral Restraints ORDERS 01/31/24 Transmitted 14:56 Date of Service: Jan 31, 2024 Billing Provider: LA SANTOYO MD Common Visit Codes: [id number] INP/OBS CARE(MOD) LA SANTOYO MD Jan 31, 2024 16:54
--- NOTE | 2024-01-31 18:24 | DVHINCON2 ---
Date of service: Jan 31, 2024 Referring Physician Flakita Garcia MD Reason for Consultation Acute hypoxic respiratory failure History of Present Illness A 38-year-old woman with past medical history of hypertension, thyroid disease, hyperlipidemia, schizophrenia, and depression who presented to ED on 01/22/24 for evaluation due to altered level of consciousness. Patient w/ extensive psych history, brought in by EMS with complaint of hematoma to the occipital region. As reported by EMS, patient was at her [facility] and was banging her head against a wall. Patient was not answering questions at time of presentation about whether she was attempting to harm herself or end her life. Patient progressively got worse, become very aggressive, agitated, danger to self and others, getting worse and subsequently intubated. Initial labs showed WBC 12.0, platelets 298, sodium 142, potassium 4.2, BUN 18, creatinine 1.21, glucose 143, AST 45, ALT 23, troponin 7, lipase 34. Vitals were BP of 199/107 trending down to 97/64, heart rate 74, temperature 98.7 F, O2 saturation 99% on ventilator. Head CT showed no evidence of acute infarct or intracranial hemorrhage. Patient was admitted for further care. Pulmonary consultation is requested for evaluation and management due to acute hypoxic respiratory failure. Review of Systems: 14-point review of systems negative unless otherwise noted above. Past Medical History: Hypertension, thyroid disease, hyperlipidemia, schizophrenia, depression Past Surgical History: None Medications: Reviewed. Allergies: No known drug allergies. Family History: No family history of premature CAD. No family history of lung disorders. Social History: Nonsmoker. No alcohol or illicit drug use. Allergies: Coded Allergies: NO KNOWN ALLERGIES (Unverified , 01/21/24) Home Meds Reported Medications Aripiprazole Monohydrate (ABILIFY MAINTENA) 400 Mg Inj, 400 MG IM QMONTH for PSYCHOSIS, INJ 01/26/24 Fluphenazine HCl (Fluphenazine Hydrochlorid) 10 Mg Tab, 50 MG PO BID for ANTIPSYCHOSIC, TAB 01/26/24 Oxcarbazepine (Trileptal) 600 Mg Tab, 150 MG PO BID, TAB 01/26/24 Trazodone Hcl (Trazodone Hcl) 150 Mg Tab, 1 TAB PO QPM for ANTIDEPRESSANT, #30 TAB 1 Refill 01/26/24 Aripiprazole (Abilify) 15 Mg Tab, 15 MG PO DAILY for SCHIZOPHRENIA, TAB 01/26/24 Rivaroxaban (XARELTO) 10 Mg Tab, 10 MG PO DAILY for LT LEG DVT, TAB 01/26/24 Levothyroxine Sodium (Levothyroxine Sodium) 50 Mcg Tab, 50 MCG PO QAM for HYPOTHYROID for 30 Days, MCG 01/26/24 Amlodipine Besylate (Amlodipine Besylate) 5 Mg Tab, 5 MG PO DAILY for CA CHANNEL RIGOBERTO /HTN for 30 Days, MG 01/26/24 Atorvastatin Calcium (ATORVASTATIN CALCIUM) 20 Mg Tab, 20 MG PO HS for HIPERLIPEDEMIA, TAB 01/26/24 Hydroxyzine Hcl (Hydroxyzine Hcl) 50 Mg Tab, 50 MG PO BID for ANTI ANXIETY, TAB 01/26/24 Glyburide (Glyburide) 5 Mg Tab, 5 MG PO BID for ANTIDIBETIC MEDICATION for 30 Days, MG 01/26/24 Current Medications Current Medications Medications (Trade) Dose Ordered Sig/Jimmy Route PRN Reason Start Time Stop Time Status Last Admin Quetiapine Fumarate (SEROquel TABLET) 150 mg BID PO 01/30/24 22:00 01/31/24 09:49 Levalbuterol HCl (Xopenex Medneb) 0.625 mg Q6HP PRN NEB SHORTNESS OF BREATH 01/30/24 23:45 Vital Signs Vital Signs Date Time Temp Pulse Resp B/P (MAP) Pulse Ox O2 Delivery O2 Flow Rate FiO2 01/31/24 17:10 99 18 142/87 (105) 100 01/31/24 11:00 Room Air 01/31/24 11:00 0 21 01/31/24 08:00 98.1 98.1 Physical Exam Gen.: Patient lying in bed in no apparent distress. On supplemental oxygen. Head: Normocephalic, atraumatic. Eyes: EOMI/PERRLA. Ears: Normal hearing. Normal anatomy. Neck/trachea: Trachea midline, supple. Nose: Normal external anatomy. Mouth: Moist mucous membranes. Chest: Decreased air entry bilaterally. No wheezing or rhonchi. Cardiovascular: Positive S1, positive S2. Regular rate and rhythm. Abdomen: Positive bowel sounds in all 4 quadrants. Soft, non-tender, non- distended. : Deferred. Rectal: Deferred. Skin: Warm, dry. Intact. Extremities: 2+ radial pulses bilaterally. No lower extremity edema. Neuro: Awake, alert, oriented x3. No gross motor or sensory deficits. Cranial nerves II through XII intact. Gait not assessed. Labs/Diagnostic Data Labs Test 01/31/24 17:28 01/31/24 05:27 01/30/24 14:28 01/30/24 03:18 Range/Units POC Glucose 107 H 70-106 mg/dl White Blood Count 9.2 4.4-10.8 10^3/uL Red Blood Count 3.94 L 4.0-5.20 10^6/uL Hemoglobin 12.7 12.2-16.2 g/dL Hematocrit 37.9 36.0-46.0 % Mean Corpuscular Volume 96.0 80.0-100.0 fL Mean Corpuscular Hemoglobin 32.1 H 28.0-32.0 pg Mean Corpuscular Hemoglobin Concent 33.5 32.0-36.0 g/dL Red Cell Distribution Width 14.7 H 11.8-14.3 % Platelet Count 286 140-450 10^3/uL Mean Platelet Volume 8.4 6.9-10.8 fL Neutrophils (%) (Auto) 54.4 37.0-80.0 % Lymphocytes (%) (Auto) 33.5 10.0-50.0 % Monocytes (%) (Auto) 7.5 0.0-12.0 % Eosinophils (%) (Auto) 3.8 0.0-7.0 % Basophils (%) (Auto) 0.8 0.0-2.0 % Neutrophils # (Auto) 5.0 1.6-8.6 10 ^3/uL Lymphocytes # (Auto) 3.1 0.4-5.4 10 ^3/uL Monocytes # (Auto) 0.7 0-1.3 10 ^3/uL Eosinophils # (Auto) 0.3 0-0.8 10 ^3/uL Basophils # (Auto) 0.1 0-0.2 10 ^3/uL Nucleated Red Blood Cells 0.0 % Sodium Level 144 136-145 mmol/L Potassium Level 3.9 3.5-5.1 mmol/L Chloride Level 108 H 98-107 mmol/L Carbon Dioxide Level 27 20-31 mmol/L Anion Gap 9 5-15 Blood Urea Nitrogen 12 9-23 mg/dL Creatinine 0.82 0.550-1.02 mg/dL Glomerular Filtration Rate Calc 95 >90 mL/min BUN/Creatinine Ratio 14.6 10.0-20.0 Serum Glucose 91 74-106 mg/dL Calcium Level 9.9 8.7-10.4 mg/dL Free Thyroxine (T4) Calculated 1.08 0.89-1.76 ng/dL Free Triiodothyronine (T3) pg/mL 2.88 2.3-4.2 pg/mL Blood Gas Specimen Type Arterial Blood Gas Sample Site Right radial Blood Gas Patient Temperature 37.0 Arterial Blood Date Drawn [id number] Arterial Blood pH 7.349 L 7.350-7.450 Arterial Blood Partial Pressure CO2 48.7 H 32.0-45.0 mmHg Arterial Blood Partial Pressure O2 76.6 L 83.0-108.0 mmHg Arterial Blood HCO3 26.2 21.0-28.0 mmol/L Arterial Blood Oxygen Saturation 95.2 94.0-98.0 % Arterial Blood Base Excess 0.0 -2.0-3.0 mmol/L Arterial Blood Oxyhemoglobin 94.7 94.0-98.0 % Arterial Blood Carboxyhemoglobin 0.1 L 0.5-1.5 % Arterial Blood Methemoglobin 0.4 0.0-1.5 % Christiano Test Yes Blood Gas Total Hemoglobin 13.60 12.0-16.0 g/dL Blood Gas Liter Flow 0.50 Blood Gas Modality Nasal cannula FiO2 % 22.0 Total Bilirubin 0.7 0.2-1.0 mg/dL Aspartate Amino Transferase (AST) 33 13-40 U/L Alanine Aminotransferase (ALT) 22 7-40 U/L Alkaline Phosphatase 85 46-116 U/L Total Protein 7.2 5.7-8.2 g/dL Albumin 4.4 3.2-4.8 g/dL Test 01/29/24 16:55 01/29/24 13:04 01/29/24 07:00 01/27/24 03:47 Range/Units Blood Gas Set Respiration Rate 14.0 Blood Gas EPAP 5 Blood Gas IPAP 12 Blood Gas Pressure Support 8 Blood Gas PEEP or CPAP 5.0 Blood Gas Tidal Volume 500.0 Prothrombin Time 10.8 9.3-11.8 sec Prothrombin Time INR 1.02 0.9-1.15 Activated Partial Thromboplast Time 27.5 24.5-34.5 SEC Thyroid Stimulating Hormone (TSH) 0.16 L 0.55-4.78 uIU/mL Test 01/26/24 03:26 01/25/24 08:35 01/25/24 05:03 01/25/24 00:18 Range/Units Magnesium Level 2.0 1.6-2.6 mg/dL Blood Gas Spontaneous Rate 18 Urine Color Yellow Yellow Urine Clarity Turbid H Clear Urine pH 5.5 5.0-9.0 Urine Specific [place] 1.029 1.001-1.035 Urine Protein 1+ H Negative Urine Ketones 1+ H Negative Urine Blood Negative Negative /uL Urine Nitrite Negative Negative Urine Bilirubin Negative Negative Urine Urobilinogen 2 H Negative mg/dL Urine Leukocyte Esterase 1+ Negative /uL Urine RBC 2 0 - 4 /hpf Urine WBC 10 0 - 5 /hpf Urine Squamous Epithelial Cells Few <5 /hpf Urine Calcium Oxalate Crystals Mod None Seen Urine Amorphous Crystals Few None Seen /hpf Urine Bacteria None seen None Seen /hpf Urine Hyaline Casts Mod 0 - 2 /lpf Urine Mucus Few None Seen Urine Glucose Normal Normal mg/dL Urine Test Negative Negative Urine Opiates Screen Neg NEGATIVE Urine Fentanyl Screen Pos NEGATIVE Urine Barbiturates Screen Neg NEGATIVE Urine Phencyclidine Screen Neg NEGATIVE Urine Amphetamines Screen Neg NEGATIVE Urine Benzodiazepines Screen Pos NEGATIVE Urine Cocaine Screen Neg NEGATIVE Urine Cannabinoids Screen Pos NEGATIVE Lactic Acid Level 1.7 0.4-2.0 mmol/L Troponin I High Sensitivity 7 </=34 ng/L Lipase 34 12-53 U/L Acetaminophen Level < 2.0 L 10.0-20.0 UG/ML Plasma/Serum Blood Alcohol < 3.0 <10 mg/dL Microbiology Date/Time Source Procedure Growth Status 01/24/24 22:39 Trachea Gram Stain - Final Complete 01/24/24 22:39 Trachea Respiratory Culture - Final Complete Assessment Impression: Acute hypoxic respiratory failure Schizophrenia Anxiety Autism Obesity, BMI 35.3 Plan: Supplemental oxygen, on 1 LPM NC for comfort Titrate to keep O2 sats above 92%. Taper O2 as tolerated. Head of bed elevation Aspiration precautions. Monitor renal function. Monitor electrolytes. Supplement as necessary. Monitor ins and outs. Follow up Psych recommendations. DVT prophylaxis. Prognosis: Poor given patient's multiple co-morbidities. Rest of plan per hospitalist and other consultants. Thank you, Dr. Garcia, for allowing me to participate in this patient's care. Further recommendations will depend on the patient's clinical course. Please do not hesitate to contact me if you have any questions or concerns. This medical document was created using an electronic medical record system with [employer] dictation system. Although these documentations are being carefully reviewed, there may still be some phonetic and typographical changes. The errors are purely typographical, due to imperfection on the software program, and do not reflect any compromise in the patient's medical care. Plan discussed with: Other (JAYDEN Olsen/MD Garcia) KATERINA PABON MD Jan 31, 2024 18:24
[2024-02-01] VITALS (12 sets, daily range): BP systolic 111–151; BP diastolic 72–95; PULSE 86–121; RESP 16–22; TEMP 97.4–98.4; O2SAT 95–98
[2024-02-01] MEDS: hydrALAZINE HCL 20 MG/ML VL IV PRN (11:21)
--- NOTE | 2024-02-01 19:11 | DVHPN2 ---
Subjective much calmer today and talking/more so in new [place]/wants to go home on dc//dens any pain/off of behaviour restraints Changes from previous H/P or p: No Changes Eyes: No Pain, No Vision change, No Conjunctivae inflammation, No Eyelid inflammation, No Other, No Redness ENT: No Ear pain, No Ear discharge, No Nose pain, No Nose discharge, No Nose congestion, No Mouth pain, No Mouth swelling, No Throat pain, No Throat swelling, No Other Cardiovascular: No Chest Pain, No Palpitations, No Orthopnea, No Paroxysmal Noc. Dyspnea, No Edema, No Lt Headedness, No Other Respiratory: No Cough, No Dry, No Shortness of breath, No SOB with excertion, No Wheezing, No Hemoptysis, No Pleuritic Pain, No Sputum, No Other Gastrointestinal: No Nausea, No Vomiting, No Abdominal Pain, No Diarrhea, No Constipation, No Melena, No Hematochezia, No Other Genitourinary: No Dysuria, No Frequency, No Incontinence, No Hematuria, No Retention, No Other Musculoskeletal: No other, No neck pain, No shoulder pain, No arm pain, No back pain, No hand pain, No leg pain, No foot pain Skin: Other Objective Vitals Vital Signs Date Time Temp Pulse Resp B/P (MAP) Pulse Ox O2 Delivery O2 Flow Rate FiO2 02/01/24 16:31 97.4 90 16 126/85 (99) 95 97.4 02/01/24 10:00 Room Air* 0 21 Intake/Output Intake and Output 02/01/24 07:00 Intake Total 970 ml Output Total 950 ml Balance 20 ml Intake Oral 820 ml IV Total 150 ml Output Urine Total 950 ml General Appearance: Alert, Other Lungs: Clear to auscultation Cardiovascular: Regular rate, Normal S1, Normal S2 Abdomen: Normal bowel sounds, Soft, No tenderness Musculoskeletal: Normal motor function, Other Neuro: Strength at 5/5 X4 ext, Normal tone, Other Medications Current Medications Medications Dose Ordered Sig/Jimmy Route Start Time Stop Time Status Last Admin Dose Admin Hydralazine HCl 10 mg Q6HP PRN IV 01/25/24 04:15 02/01/24 11:21 10 MG Levothyroxine Sodium 50 mcg QAM@0600 PO 01/25/24 06:00 02/01/24 05:34 50 MCG Sodium Chloride 10 ml Q8HR IV 01/25/24 06:00 02/01/24 14:00 10 ML Ondansetron HCl 4 mg Q4HP PRN IV 01/25/24 04:15 01/29/24 13:12 4 MG Nitroglycerin 0.4 mg Q5MINP PRN SL 01/25/24 04:15 Morphine Sulfate 2 mg Q30M PRN IV 01/25/24 04:15 Acetaminophen 650 mg Q6HP PRN ME 01/25/24 04:15 Piperacillin Sod/ Tazobactam Sod 100 ml @ 25 mls/hr Q8HR IV 01/26/24 22:00 02/01/24 15:31 25 MLS/HR Enoxaparin Sodium 40 mg DAILY SC 01/27/24 10:00 02/01/24 11:20 40 MG Enteral Nutritional Formula 1,000 ml 30ML/HR GT 01/26/24 15:15 01/28/24 04:38 1,000 ML Diagnostic Test (Pha) 1 strip Q6HR 01/28/24 12:00 02/01/24 17:35 1 STRIP Insulin Human Regular Q6HR SC 01/28/24 12:00 02/01/24 13:14 2 UNITS Dextrose 50 ml UD PRN IV 01/28/24 09:45 Patient Own Medication 1 DAILY PO 01/28/24 16:00 01/31/24 09:52 1 Patient Own Medication 1 BID PO 01/28/24 22:00 01/31/24 09:52 1 Lorazepam 1 mg Q4HPRN PRN IV 01/29/24 13:00 02/01/24 16:44 1 MG Haloperidol Lactate 5 mg Q6HP PRN IM 01/29/24 16:00 02/01/24 11:22 5 MG Quetiapine Fumarate 150 mg BID PO 01/30/24 22:00 02/01/24 11:19 150 MG Laboratory Results Laboratory Tests 01/31/24 05:27 Urinalysis Test 01/25/24 05:03 Urine Color Yellow (Yellow) Urine Clarity Turbid (Clear) H Urine pH 5.5 (5.0-9.0) Urine Specific [place] 1.029 (1.001-1.035) Urine Protein 1+ (Negative) H Urine Ketones 1+ (Negative) H Urine Blood Negative /uL (Negative) Urine Nitrite Negative (Negative) Urine Bilirubin Negative (Negative) Urine Urobilinogen 2 mg/dL (Negative) H Urine Leukocyte Esterase 1+ /uL (Negative) Urine RBC 2 /hpf (0 - 4) Urine WBC 10 /hpf (0 - 5) Urine Squamous Epithelial Cells Few /hpf (<5) Urine Calcium Oxalate Crystals Mod (None Seen) Urine Amorphous Crystals Few /hpf (None Seen) Urine Bacteria None seen /hpf (None Seen) Urine Hyaline Casts Mod /lpf (0 - 2) Urine Mucus Few (None Seen) Urine Glucose Normal mg/dL (Normal) Urine Test Negative (Negative) Microbiology Microbiology Date/Time Source Procedure Growth Status 01/24/24 22:39 Trachea Gram Stain - Final Complete 01/24/24 22:39 Trachea Respiratory Culture - Final Complete Labs and/or images reviewed: Labs reviewed by me, Image(s) reviewed by me Assessment/Plan Assessment/Plan schizhophrenia with agitation- pulse ox today is 98% on room air NEEDS CLOSED PSYCH UNIT FOR SAFETY AND TREATMENT ALSO- doubt will be able to cooperate with tele psych sick euthyroid syndrome very moble in bed- no indication for dvt prophylaxis Plan discussed with: Patient, Other Date of Service: Feb 01, 2024 Billing Provider: LA SANTOYO MD Common Visit Codes: [id number] INP/OBS CARE(MOD) LA SANTOYO MD Feb 01, 2024 19:11
--- NOTE | 2024-02-01 23:42 | DVHPN2 ---
Progress Note - Dictate Date Seen: Feb 01, 2024 Medical Necessity Reason Pt with a Central, PICC or Fol: Yes The following are medically ne: Central Line, Menezes Catheter Reason for menezes catheter: Strict I&O Subjective Patient seen and examined at bedside. Breathing comfortably on room air. Overnight events reviewed. vital signs Vital Sign Date Time Temp Pulse Resp B/P (MAP) Pulse Ox O2 Delivery O2 Flow Rate FiO2 02/01/24 16:31 97.4 90 16 126/85 (99) 95 97.4 02/01/24 10:00 Room Air* 0 21 Total Intake and Output 01/31/24 01/31/24 02/01/24 15:00 23:00 07:00 Intake Total 50 ml 300 ml 620 ml Output Total 700 ml 250 ml Balance 50 ml -400 ml 370 ml medications Current Medications Medications Dose Ordered Sig/Jimmy Route Start Time Stop Time Status Last Admin Dose Admin Hydralazine HCl 10 mg Q6HP PRN IV 01/25/24 04:15 02/01/24 11:21 10 MG Levothyroxine Sodium 50 mcg QAM@0600 PO 01/25/24 06:00 02/01/24 05:34 50 MCG Sodium Chloride 10 ml Q8HR IV 01/25/24 06:00 02/01/24 21:21 10 ML Acetaminophen 650 mg Q6HP PRN [place] 01/25/24 04:15 Piperacillin Sod/ Tazobactam Sod 100 ml @ 25 mls/hr Q8HR IV 01/26/24 22:00 02/01/24 21:21 25 MLS/HR Enoxaparin Sodium 40 mg DAILY SC 01/27/24 10:00 02/01/24 11:20 40 MG Enteral Nutritional Formula 1,000 ml 30ML/HR GT 01/26/24 15:15 01/28/24 04:38 1,000 ML Patient Own Medication 1 DAILY PO 01/28/24 16:00 01/31/24 09:52 1 Patient Own Medication 1 BID PO 01/28/24 22:00 02/01/24 21:22 1 Lorazepam 1 mg Q4HPRN PRN IV 01/29/24 13:00 02/01/24 22:20 1 MG Haloperidol Lactate 5 mg Q6HP PRN IM 01/29/24 16:00 02/01/24 11:22 5 MG Quetiapine Fumarate 150 mg BID PO 01/30/24 22:00 02/01/24 21:21 150 MG objective Gen.: Patient lying in bed in no apparent distress. Breathing on room air. Head: Normocephalic, atraumatic. Eyes: EOMI/PERRLA. Ears: Normal hearing. Normal anatomy. Neck/trachea: Trachea midline, supple. Nose: Normal external anatomy. Mouth: Moist mucous membranes. Chest: Decreased air entry bilaterally. No wheezing or rhonchi. Cardiovascular: Positive S1, positive S2. Regular rate and rhythm. Abdomen: Positive bowel sounds in all 4 quadrants. Soft, non-tender, non- distended. : Deferred. Rectal: Deferred. Skin: Warm, dry. Intact. Extremities: 2+ radial pulses bilaterally. No lower extremity edema. Neuro: Awake, alert, oriented x3. No gross motor or sensory deficits. Cranial nerves II through XII intact. Gait not assessed. laboratory and microbiology Laboratory Tests 01/31/24 05:27 Test 01/31/24 05:27 Range/Units Serum Glucose 91 74-106 mg/dL Assessment/Plan Impression: Acute hypoxic respiratory failure Schizophrenia Anxiety Autism Obesity, BMI 35.3 Events: Tapered off supplemental oxygen Breathing on room air No respiratory distress. Head of bed elevation Aspiration precautions Continue antibiotics Anxiety- Ativan PRN. Labs and imaging reviewed. Rest of plan as noted below. Plan: Supplemental oxygen PRN Titrate to keep O2 sats above 92%. Antibiotics Head of bed elevation Aspiration precautions. Monitor renal function. Monitor electrolytes. Supplement as necessary. Monitor ins and outs. Follow up Psych recommendations. DVT prophylaxis. Prognosis: Poor given patient's multiple co-morbidities. Rest of plan per hospitalist and other consultants. Thank you, Dr. Garcia, for allowing me to participate in this patient's care. Further recommendations will depend on the patient's clinical course. Please do not hesitate to contact me if you have any questions or concerns. This medical document was created using an electronic medical record system with [employer] system. Although these documentations are being carefully reviewed, there may still be some phonetic and typographical changes. The errors are purely typographical, due to imperfection on the software program, and do not reflect any compromise in the patient's medical care. Dietary Evaluation Review Comments: 1. Advance to regular diet when medically feasible and pt passes speech eval. 2. If EN is optional and pt remains on Vent, TF Pivot 1.5 @45ml/hr (101g Pro, 1620 kcal supporting pt's needs at 78% Protein and 139% Kcal, 3. TPN per pharmacy if GI access is not available, and NPO > 7 days 4. Pt's protein needs will reduce to 1.2-1.5g/kg BW once off vent. Re-assess her need depending on her BW at the time. Expected Outcomes/Goals: gradual weight loss. Plan discussed with: Patient, Other (JAYDEN Otto) KATERINA PABON MD Feb 01, 2024 23:42
[2024-02-02] VITALS (7 sets, daily range): BP systolic 106–135; BP diastolic 70–84; PULSE 72–114; RESP 16–20; TEMP 97.4–98.5; O2SAT 94–98
--- NOTE | 2024-02-02 12:17 | DVHDS2 ---
Discharge Summary Date of Admission Jan 25, 2024 at 04:01 Date of Discharge: Feb 02, 2024 Labs/Diagnostic Data: Laboratory Results Test 02/01/24 13:02 01/31/24 05:27 01/30/24 14:28 01/30/24 03:18 POC Glucose 139 mg/dl (70-106) White Blood Count 9.2 10^3/uL (4.4-10.8) Red Blood Count 3.94 10^6/uL (4.0-5.20) Hemoglobin 12.7 g/dL (12.2-16.2) Hematocrit 37.9 % (36.0-46.0) Mean Corpuscular Volume 96.0 fL (80.0-100.0) Mean Corpuscular Hemoglobin 32.1 pg (28.0-32.0) Mean Corpuscular Hemoglobin Concent 33.5 g/dL (32.0-36.0) Red Cell Distribution Width 14.7 % (11.8-14.3) Platelet Count 286 10^3/uL (140-450) Mean Platelet Volume 8.4 fL (6.9-10.8) Neutrophils (%) (Auto) 54.4 % (37.0-80.0) Lymphocytes (%) (Auto) 33.5 % (10.0-50.0) Monocytes (%) (Auto) 7.5 % (0.0-12.0) Eosinophils (%) (Auto) 3.8 % (0.0-7.0) Basophils (%) (Auto) 0.8 % (0.0-2.0) Neutrophils # (Auto) 5.0 10 ^3/uL (1.6-8.6) Lymphocytes # (Auto) 3.1 10 ^3/uL (0.4-5.4) Monocytes # (Auto) 0.7 10 ^3/uL (0-1.3) Eosinophils # (Auto) 0.3 10 ^3/uL (0-0.8) Basophils # (Auto) 0.1 10 ^3/uL (0-0.2) Nucleated Red Blood Cells 0.0 % Sodium Level 144 mmol/L (136-145) Potassium Level 3.9 mmol/L (3.5-5.1) Chloride Level 108 mmol/L (98-107) Carbon Dioxide Level 27 mmol/L (20-31) Anion Gap 9 (5-15) Blood Urea Nitrogen 12 mg/dL (9-23) Creatinine 0.82 mg/dL (0.550-1.02) Glomerular Filtration Rate Calc 95 mL/min (>90) BUN/Creatinine Ratio 14.6 (10.0-20.0) Serum Glucose 91 mg/dL (74-106) Calcium Level 9.9 mg/dL (8.7-10.4) Free Thyroxine (T4) Calculated 1.08 ng/dL (0.89-1.76) Free Triiodothyronine (T3) pg/mL 2.88 pg/mL (2.3-4.2) Blood Gas Specimen Type Arterial Blood Gas Sample Site Right radial Blood Gas Patient Temperature 37.0 Arterial Blood Date Drawn Arterial Blood pH 7.349 (7.350-7.450) Arterial Blood Partial Pressure CO2 48.7 mmHg (32.0-45.0) Arterial Blood Partial Pressure O2 76.6 mmHg (83.0-108.0) Arterial Blood HCO3 26.2 mmol/L (21.0-28.0) Arterial Blood Oxygen Saturation 95.2 % (94.0-98.0) Arterial Blood Base Excess 0.0 mmol/L (-2.0-3.0) Arterial Blood Oxyhemoglobin 94.7 % (94.0-98.0) Arterial Blood Carboxyhemoglobin 0.1 % (0.5-1.5) Arterial Blood Methemoglobin 0.4 % (0.0-1.5) Christiano Test Yes Blood Gas Total Hemoglobin 13.60 g/dL (12.0-16.0) Blood Gas Liter Flow 0.50 Blood Gas Modality Nasal cannula FiO2 % 22.0 Total Bilirubin 0.7 mg/dL (0.2-1.0) Aspartate Amino Transferase (AST) 33 U/L (13-40) Alanine Aminotransferase (ALT) 22 U/L (7-40) Alkaline Phosphatase 85 U/L (46-116) Total Protein 7.2 g/dL (5.7-8.2) Albumin 4.4 g/dL (3.2-4.8) Test 01/29/24 16:55 01/29/24 13:04 01/29/24 07:00 01/27/24 03:47 Blood Gas Set Respiration Rate 14.0 Blood Gas EPAP 5 Blood Gas IPAP 12 Blood Gas Pressure Support 8 Blood Gas PEEP or CPAP 5.0 Blood Gas Tidal Volume 500.0 Prothrombin Time 10.8 sec (9.3-11.8) Prothrombin Time INR 1.02 (0.9-1.15) Activated Partial Thromboplast Time 27.5 SEC (24.5-34.5) Thyroid Stimulating Hormone (TSH) 0.16 uIU/mL (0.55-4.78) Test 01/26/24 03:26 01/25/24 08:35 01/25/24 05:03 01/25/24 00:18 Magnesium Level 2.0 mg/dL (1.6-2.6) Blood Gas Spontaneous Rate 18 Urine Color Yellow (Yellow) Urine Clarity Turbid (Clear) Urine pH 5.5 (5.0-9.0) Urine Specific [place] 1.029 (1.001-1.035) Urine Protein 1+ (Negative) Urine Ketones 1+ (Negative) Urine Blood Negative /uL (Negative) Urine Nitrite Negative (Negative) Urine Bilirubin Negative (Negative) Urine Urobilinogen 2 mg/dL (Negative) Urine Leukocyte Esterase 1+ /uL (Negative) Urine RBC 2 /hpf (0 - 4) Urine WBC 10 /hpf (0 - 5) Urine Squamous Epithelial Cells Few /hpf (<5) Urine Calcium Oxalate Crystals Mod (None Seen) Urine Amorphous Crystals Few /hpf (None Seen) Urine Bacteria None seen /hpf (None Seen) Urine Hyaline Casts Mod /lpf (0 - 2) Urine Mucus Few (None Seen) Urine Glucose Normal mg/dL (Normal) Urine Test Negative (Negative) Urine Opiates Screen Neg (NEGATIVE) Urine Fentanyl Screen Pos (NEGATIVE) Urine Barbiturates Screen Neg (NEGATIVE) Urine Phencyclidine Screen Neg (NEGATIVE) Urine Amphetamines Screen Neg (NEGATIVE) Urine Benzodiazepines Screen Pos (NEGATIVE) Urine Cocaine Screen Neg (NEGATIVE) Urine Cannabinoids Screen Pos (NEGATIVE) Lactic Acid Level 1.7 mmol/L (0.4-2.0) Troponin I High Sensitivity 7 ng/L (</=34) Lipase 34 U/L (12-53) Acetaminophen Level < 2.0 UG/ML (10.0-20.0) Plasma/Serum Blood Alcohol < 3.0 mg/dL (<10) Other Laboratory Tests 01/31/24 05:27 Brief Hx & Hospital Course: SEE DICTATED NOTE Condition at Discharge: Fair Final Diagnosis/Problems List AGITATION Discharge Disposition: Residential Skilled Nursing Discharge Instruct/Medications Diet: Consistent carbohydrate, Cardiac 2g Na,low cholest Activity: No Restrictions, As Tolerated Follow Up/Referral: FU WITH PCP/PSYCHIATRY Medications: RESUME HOME MEDS Discharge Statement: "Patient was advised to return to the ER or call 911 if any headaches, dizziness, shortness of breath, chest pain, abdominal pain, bleeding, fevers, or worsening of medical condition. Patient was counseled about treatment plan, medications, possible side effects, patientverbalized understanding. All questions were answered to the best of my ability. This discharge took greater then 30 minutes in planning, reviewing documentation, counseling the patient, and discussing with other team members." ASSESSMENT ASSESSMENT Assessment AGITATION Date of Service: Feb 02, 2024 Billing Provider: BRYCE HULL MD Common Visit Codes: 67498-LLP/OBS DISCH DAY >30min BRYCE HULL MD Feb 02, 2024 12:17
--- NOTE | 2024-02-02 12:41 | DVHDS ---
DATE OF DISCHARGE: 02/02/2024 HISTORY OF PRESENT ILLNESS: The patient is a 38-year-old lady who was initially admitted with altered level of consciousness and increased agitation. The patient has a history of hypertension, depression, schizophrenia and thyroid disease. HOSPITAL COURSE: The patient was intubated and mechanically ventilated for increased agitation. The patient had initial fever. She was treated for possible pneumonia with antibiotics. The patient was then subsequently extubated. The patient has since done well. She had sputum cultures that have been negative. The patient will have a repeat tele psych. Based on the recommendations, the patient will either be discharged back to the facility or to psychiatric facility. She will resume home medications at the facility. FINAL DIAGNOSES: Therefore, * Acute respiratory failure. * Septic shock with questionable pneumonia. * Schizophrenia with autism. * Obesity. * Hypothyroidism. * History of deep venous thrombosis. Time spent in discharge planning and review of plan with the patient, nursing and director of social media marketing was 37 minutes. MD KAYE Bustamante/MARK TID: [id number] RECEIPT: [id number]
--- NOTE | 2024-02-02 23:05 | DVHPN2 ---
Progress Note - Dictate Date Seen: Feb 02, 2024 Medical Necessity Reason Pt with a Central, PICC or Fol: Yes The following are medically ne: Central Line, Menezes Catheter Reason for menezes catheter: Strict I&O Subjective Patient seen and examined at bedside. Breathing comfortably on room air. Overnight events reviewed. vital signs Vital Sign Date Time Temp Pulse Resp B/P (MAP) Pulse Ox O2 Delivery O2 Flow Rate FiO2 02/02/24 16:58 97.5 98 16 124/78 (93) 98 97.5 02/02/24 10:00 Room Air 0.0 02/02/24 10:00 21 Total Intake and Output 02/01/24 02/01/24 02/02/24 15:00 23:00 07:00 Intake Total 100 ml 305 ml 580 ml Output Total 300 ml 350 ml Balance 100 ml 5 ml 230 ml objective Gen.: Patient lying in bed in no apparent distress. Breathing on room air. Head: Normocephalic, atraumatic. Eyes: EOMI/PERRLA. Ears: Normal hearing. Normal anatomy. Neck/trachea: Trachea midline, supple. Nose: Normal external anatomy. Mouth: Moist mucous membranes. Chest: Decreased air entry bilaterally. No wheezing or rhonchi. Cardiovascular: Positive S1, positive S2. Regular rate and rhythm. Abdomen: Positive bowel sounds in all 4 quadrants. Soft, non-tender, non- distended. : Deferred. Rectal: Deferred. Skin: Warm, dry. Intact. Extremities: 2+ radial pulses bilaterally. No lower extremity edema. Neuro: Awake, alert, oriented x3. No gross motor or sensory deficits. Cranial nerves II through XII intact. Gait not assessed. laboratory and microbiology Laboratory Tests 01/31/24 05:27 Test 01/31/24 05:27 Range/Units Serum Glucose 91 74-106 mg/dL Assessment/Plan Impression: Acute hypoxic respiratory failure Schizophrenia Anxiety Autism Obesity, BMI 35.3 Events: Remains on room air No respiratory distress. Anxiolytic/Ativan. Patient is stable for discharge from the pulmonary standpoint. Disposition per hospitalist. Labs and imaging reviewed. Rest of plan as noted below. Plan: Supplemental oxygen PRN Titrate to keep O2 sats above 92%. Antibiotics Psych medications, anxiolytic. Head of bed elevation Aspiration precautions. Monitor renal function. Monitor electrolytes. Supplement as necessary. Monitor ins and outs. DVT prophylaxis. Prognosis: Guarded given patient's multiple co-morbidities. Rest of plan per hospitalist and other consultants. Thank you, Dr. Garcia, for allowing me to participate in this patient's care. Further recommendations will depend on the patient's clinical course. Please do not hesitate to contact me if you have any questions or concerns. This medical document was created using an electronic medical record system with [employer] dictation system. Although these documentations are being carefully reviewed, there may still be some phonetic and typographical changes. The errors are purely typographical, due to imperfection on the software program, and do not reflect any compromise in the patient's medical care. Dietary Evaluation Review Comments: 1. Advance to regular diet when medically feasible and pt passes speech eval. 2. If EN is optional and pt remains on Vent, TF Pivot 1.5 @45ml/hr (101g Pro, 1620 kcal supporting pt's needs at 78% Protein and 139% Kcal, 3. TPN per pharmacy if GI access is not available, and NPO > 7 days 4. Pt's protein needs will reduce to 1.2-1.5g/kg BW once off vent. Re-assess her need depending on her BW at the time. Expected Outcomes/Goals: gradual weight loss. Plan discussed with: Patient, Other (JAYDEN Denson) KATERINA PABON MD Feb 02, 2024 23:05
[2024-02-03] MEDS ORDERED: RIVAROXABAN 10 MG TAB PO SCH (10:00)
== END 2024-02-02 17:30 | disposition home or self-care (01) | DRG 870 ==
LOC: ER 21:31 → EDBD 21:31 → ER 01-22 01:58 → OVERFLOW 01-23 21:31 → UNDOADMIN 01-23 21:31 → OVERFLOW 01-25 04:01 → ICU WEST 01-25 22:47 → DOU IN ICU 01-30 17:00 → TELE-EAST 01-31 11:46
PROVIDERS: ADMIT Nurse Practitioner Family; ATTEND Internal Medicine
PROC: 5A1955Z Respiratory Ventilation, Greater than 96 Consecutive Hours (ICD-10-PCS; principal; 2024-01-25)
PROC: 0BH17EZ Insertion of Endotracheal Airway into Trachea, Via Natural or Artificial Opening (ICD-10-PCS; 2024-01-25)
PROC: 06HY33Z Insertion of Infusion Device into Lower Vein, Percutaneous Approach (ICD-10-PCS; 2024-01-25)
PROC: 5A09357 Assistance with Respiratory Ventilation, Less than 24 Consecutive Hours, Continuous Positive Airway Pressure (ICD-10-PCS; 2024-01-29)
DX: A41.9 Sepsis, unspecified organism (principal); J18.9 Pneumonia, unspecified organism; J96.01 Acute respiratory failure with hypoxia; R65.21 Severe sepsis with septic shock; J96.02 Acute respiratory failure with hypercapnia; F84.0 Autistic disorder; S00.03XA Contusion of scalp, initial encounter; F79 Unspecified intellectual disabilities; W22.01XA Walked into wall, initial encounter; I10 Essential (primary) hypertension; F17.290 Nicotine dependence, other tobacco product, uncomplicated; F41.9 Anxiety disorder, unspecified; E07.9 Disorder of thyroid, unspecified; E78.5 Hyperlipidemia, unspecified; E66.9 Obesity, unspecified; F20.9 Schizophrenia, unspecified; E07.81 Sick-euthyroid syndrome; E03.9 Hypothyroidism, unspecified; F32.A Depression, unspecified; Y93.89 Activity, other specified; Y92.89 Other specified places as the place of occurrence of the external cause; Y99.8 Other external cause status; Z68.35 Body mass index [BMI] 35.0-35.9, adult; Z86.718 Personal history of other venous thrombosis and embolism; Z78.1 Physical restraint status
CPT/HCPCS: 36415; 36600; 70450; 71045; 80048; 80053; 80307; 80320; 80329; 81001; 81025; 82805; 82962; 83605; 83690; 83735; 84439; 84443; 84481; 84484; 85025; 85610; 85730; 87070; 87205; 92610; 94002; 94003; 94640; 94660; 96372; G0378; J1815; J2250; J2405; J2543; J2704; J3480

== ENCOUNTER 2024-03-07 14:26 | Emergency (ER) | payer MEDICARE, MEDICAID ==
[~2024-03-07] VITALS: Ht 162.6 cm; Wt 90.0 kg
[~2024-03-07 14:26] MED LIST: AMLO1TAB22 PO; ARIP15TA6 PO; ARIP400I IM; ATOR20TA50 PO; FLUP10TA12 PO; GLYB5TAB8 PO; HYDR50TA69 PO; LEVO50TA7 PO; OXCA600T3 PO; RIVA10TA PO; TRAZ1TAB12 PO
[2024-03-07] MEDS ORDERED: LOPE2CAP16 PO (14:46)
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
[2024-03-07] MEDS: ONDANSETRON ODT 4 MG TAB PO ONE (15:09)
[2024-03-07] MEDS: DIPHENOXYLATE W/ATROPINE 2.5 MG TAB PO ONE (15:09)
[2024-03-07 15:19] VITALS: BP 161/97; PULSE 90; RESP 18; TEMP 97.9; O2SAT 98
== END 2024-03-07 15:19 | disposition home or self-care (01) ==
LOC: ER 14:26 → EDUNIT# 14:26 → EDBD 14:26 → ER 15:03
DX: R19.7 Diarrhea, unspecified (principal); I10 Essential (primary) hypertension; F20.9 Schizophrenia, unspecified; Z79.84 Long term (current) use of oral hypoglycemic drugs; Z79.899 Other long term (current) drug therapy
CPT/HCPCS: 99283; Q0162

== ENCOUNTER 2024-03-22 21:50 | Emergency (ER) | payer MEDICARE, MEDICAID ==
[~2024-03-22] VITALS: Ht 167.6 cm; Wt 109.1 kg
[~2024-03-22 21:50] MED LIST changes: +LOPE2CAP16 PO
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
[2024-03-22 23:00] VITALS: TEMP 98
[2024-03-22] MEDS: diphenhdrAMINE HCL 50 MG/1 ML VL IM ONE (23:21)
[2024-03-22] MEDS: HALOPERIDOL LACTATE 5 MG/ML INJ VIAL IM ONE (23:21)
[2024-03-22] MEDS: LORazepam 2MG/ML-1ML VIAL IM ONE (23:21)
[2024-03-23 00:40] LABS: Basophils # (auto) 0.1 10 ^3/uL (0-0.2); Basophils % (auto) 0.6 % (0.0-2.0); Eosinophils # (auto) 0.2 10 ^3/uL (0-0.8); Eosinophils % (auto) 1.6 % (0.0-7.0); Hematocrit 38.2 % (36.0-46.0); Hemoglobin 12.5 g/dL (12.2-16.2); Lymphocytes % (auto) 35.6 % (10.0-50.0); Mean Corpuscular Hemoglobin 31.4 pg (28.0-32.0); Mean Corpuscular Hgb Conc. 32.6 g/dL (32.0-36.0); Mean Corpuscular Volume 96.2 fL (80.0-100.0); Monocytes # (auto) 0.6 10 ^3/uL (0-1.3); Monocytes % (auto) 5.1 % (0.0-12.0); Neutrophils # (auto) 6.4 10 ^3/uL (1.6-8.6); Neutrophils % (auto) 57.1 % (37.0-80.0); Nucleated Red Blood Cells % 0.1 %; Platelet Count (auto) 326 10^3/uL (140-450); Red Blood Cells 3.97 10^6/uL (4.0-5.20); Red Cell Distribution Width 15.1 % (11.8-14.3); White Blood Cell 11.2 10^3/uL (4.4-10.8)
[2024-03-23 00:58] LABS: Alanine Aminotransferase 15 U/L (7-40); Albumin 4.2 g/dL (3.2-4.8); Alkaline Phosphatase 88 U/L (46-116); Anion Gap 7 (5-15); BUN/Creatinine Ratio 11.4 (10.0-20.0); Calcium 9.7 mg/dL (8.7-10.4); Carbon Dioxide 25 mmol/L (20-31); Potassium 3.6 mmol/L (3.5-5.1); Sodium 141 mmol/L (136-145)
[2024-03-23 00:59] LABS: Total Protein 6.3 g/dL (5.7-8.2)
[2024-03-23 01:02] LABS: Aspartate Aminotransferase 12 U/L (13-40); Bilirubin, Total 0.3 mg/dL (0.2-1.0); Blood Urea Nitrogen 9 mg/dL (9-23); Chloride 109 mmol/L (98-107); Glucose 112 mg/dL (74-106)
[2024-03-23 01:56] LABS: Blood Alcohol < 3.0 mg/dL (<10)
[2024-03-23 05:00] VITALS: BP 131/90; PULSE 67; O2SAT 100
[2024-03-23 07:30] VITALS: RESP 15
--- NOTE | 2024-03-23 08:49 | DVHINCON2 ---
Date of Service if different f: Mar 23, 2024 Time of Service: 07:55 Consultation ([facility]) Consulting Physician: QUENTIN PINEDA MD Labs Laboratory Tests Test 03/23/24 00:30 White Blood Count 11.2 10^3/uL (4.4-10.8) Red Blood Count 3.97 10^6/uL (4.0-5.20) Hemoglobin 12.5 g/dL (12.2-16.2) Hematocrit 38.2 % (36.0-46.0) Mean Corpuscular Volume 96.2 fL (80.0-100.0) Mean Corpuscular Hemoglobin 31.4 pg (28.0-32.0) Mean Corpuscular Hemoglobin Concent 32.6 g/dL (32.0-36.0) Red Cell Distribution Width 15.1 % (11.8-14.3) Platelet Count 326 10^3/uL (140-450) Mean Platelet Volume 8.1 fL (6.9-10.8) Neutrophils (%) (Auto) 57.1 % (37.0-80.0) Lymphocytes (%) (Auto) 35.6 % (10.0-50.0) Monocytes (%) (Auto) 5.1 % (0.0-12.0) Eosinophils (%) (Auto) 1.6 % (0.0-7.0) Basophils (%) (Auto) 0.6 % (0.0-2.0) Neutrophils # (Auto) 6.4 10 ^3/uL (1.6-8.6) Lymphocytes # (Auto) 4.0 10 ^3/uL (0.4-5.4) Monocytes # (Auto) 0.6 10 ^3/uL (0-1.3) Eosinophils # (Auto) 0.2 10 ^3/uL (0-0.8) Basophils # (Auto) 0.1 10 ^3/uL (0-0.2) Nucleated Red Blood Cells 0.1 % Sodium Level 141 mmol/L (136-145) Potassium Level 3.6 mmol/L (3.5-5.1) Chloride Level 109 mmol/L (98-107) Carbon Dioxide Level 25 mmol/L (20-31) Anion Gap 7 (5-15) Blood Urea Nitrogen 9 mg/dL (9-23) Creatinine 0.79 mg/dL (0.550-1.02) Glomerular Filtration Rate Calc 99 mL/min (>90) BUN/Creatinine Ratio 11.4 (10.0-20.0) Serum Glucose 112 mg/dL (74-106) Calcium Level 9.7 mg/dL (8.7-10.4) Total Bilirubin 0.3 mg/dL (0.2-1.0) Aspartate Amino Transf (AST/SGOT) 12 U/L (13-40) Alanine Aminotransferase (ALT/SGPT) 15 U/L (7-40) Alkaline Phosphatase 88 U/L (46-116) Total Protein 6.3 g/dL (5.7-8.2) Albumin 4.2 g/dL (3.2-4.8) Plasma/Serum Blood Alcohol < 3.0 mg/dL (<10) Appearance: Stated age Psychomotor activity: WNL, Calm Behavioral: Cooperative Eye contact: Appropriate Speech: WNL Affect: Mood Congruent, Irritable Mood: Irritable Thought processes: Linear/Goal-directed Thought content: WNL Suicidal ideations: Absent Homicidal ideations: Absent Orientation: Person, Place, Time, Situation Memory intact: Recent Intellect: Average Abstractability: WNL Concentration: Adequate Attention: Adequate Judgement: WNL Insight: Fair Vitals Vital Signs Date Time Temp Pulse Resp B/P (MAP) Pulse Ox O2 Delivery O2 Flow Rate FiO2 03/23/24 05:00 67 20 131/90 (104) 100 03/22/24 23:00 98.0 98.0 03/22/24 22:40 Room Air* 0 21 Treatment plan discussed: With staff Medication adjusted: No Labs ordered: No Psychotherapy provided: No Type: Voluntary History of Present Illness Reason for Consult : psychiatric evaluation PER ED PHYSICIAN: 38-year-old female brought in by EMS. Per EMS they state that she was picked up from a care home. [facility] called EMS because patient tried to break apart a razor blade and cut her left forearm. Patient was 2 in laceration to left forearm. Bleeding controlled upon on arrival from EMS. EMS states that patient has refused to answer any questions in route. Patient was restrained four point restraint. PSYCHIATRIST HPI: The patient was seen and evaluated at [facility] ED via elepsych[facility] platform. 38 yr old female reported she is feeling much better this morning. She stated she came in last night as she felt frustrated and cut herself with a razor. She stated she does not feel suicidal and has no desire to harm herself. She stated she feels comfortable returning to her care home and is much calmer now. She has autism and reported she sometimes gets frustrated and acts out but that after the tantrum passes, she feels much better and feels like she can function normally. She denied having SI/HI/AVH. Past Psychiatric History : Diagnosed with schizophrenia, autism and intellectual disability. Last hospitalized in Jan 03 after stopping her medication. Current medications: (from previous visitprogress note) Abilify Maintenna 400mg IM qmonth Prolixin 50mg BID Oxcarbazepine 150mg BID Quetiapine 300mg qhs Trazodone 150mg qhs Airipiprazole 15mg qam Xarelto 10mg qam Levothyroxine 50mcg rosie amlodpine 5mg qam atorvastatin 20mg qhs Glyburide 5mg BID Hydroxyzine 50mg BID Past Medical History : diabetes, high cholesterol, hypertension Substance Use: Denied alcohol and other drug use. Social History : Lives at [facility]. DIAGNOSIS: SCHIZOPHRENIA; AUTISM; INTELLECTUAL DISABILITY Formulation: This 38 yr old female appears to suffer from schizophrenia and autism. She is not current suicidal and would benefit from continuing on her outpatient medications. She does not warrant psychiatric hospitalization at his time. Plan: 1. Contact care home and discharge to care home. 2. Legal-voluntary. 3. Medications: continue present medication regimen. 4. Case discussed with JAYEDN Ibrahim. 5. Please recontact psychiatry for further follow up or reevaluation. Assessment/Diagnosis/Plan Reviewed: Labs, Medications, Previous Orders QUENTIN PINEDA MD Mar 23, 2024 08:06
== END 2024-03-23 09:02 | disposition left against medical advice (07) ==
LOC: ER 21:50 → EDBD 21:50 → ER 03-23 09:02
DX: S51.812A Laceration without foreign body of left forearm, initial encounter (principal); T14.91XA Suicide attempt, initial encounter; F84.0 Autistic disorder; I10 Essential (primary) hypertension; F79 Unspecified intellectual disabilities; F20.9 Schizophrenia, unspecified; E11.9 Type 2 diabetes mellitus without complications; E78.00 Pure hypercholesterolemia, unspecified; F31.9 Bipolar disorder, unspecified; Z79.01 Long term (current) use of anticoagulants; Z79.84 Long term (current) use of oral hypoglycemic drugs; Z79.899 Other long term (current) drug therapy; W26.8XXA Contact with other sharp object(s), not elsewhere classified, initial encounter; Y93.89 Activity, other specified; Y92.89 Other specified places as the place of occurrence of the external cause; Y99.8 Other external cause status
CPT/HCPCS: 36415; 80053; 80320; 85025; 96372; 99285; J1200; J1630; J2060

== ENCOUNTER 2024-05-09 21:40 | Emergency (ER) | payer MEDICARE, MEDICAID ==
[~2024-05-09] VITALS: Ht 170.2 cm; Wt 86.4 kg
[2024-05-09 21:49] VITALS: BP 155/90; PULSE 107; RESP 18; TEMP 98; O2SAT 99
== END 2024-05-09 23:29 | disposition left against medical advice (07) ==
LOC: EDBD 21:40 → ER 21:45
DX: R20.0 Anesthesia of skin (principal); Z53.21 Procedure and treatment not carried out due to patient leaving prior to being seen by health care provider

== ENCOUNTER 2024-06-17 23:59 | Emergency (ER) | payer MEDICARE, MEDICAID ==
[~2024-06-17] VITALS: Ht 167.6 cm; Wt 122.6 kg
[2024-06-18 01:15] VITALS: BP 138/66; PULSE 97; RESP 13; TEMP 97.8; O2SAT 99
[2024-06-18] MEDS ORDERED: KETOROLAC TROMETH 30 MG/ML 1ML VIAL IV ONE (04:00)
[2024-06-18] MEDS ORDERED: cefTRIAXone 1GM/50ML D5W 50 ML IV ONE (04:00)
[2024-06-18] MEDS ORDERED: VANCOMYCIN 1GM/200ML PM 250 ML IV ONE (04:00)
[2024-06-18] MEDS ORDERED: ACETAMINOPHEN 325 MG TAB PO ONE (04:00)
[2024-06-18] MEDS ORDERED: SODIUM CHLORIDE 0.9% 1,000 ML IV ONE (04:00)
--- NOTE | 2024-06-18 04:00 | ED.PDOC ---
History of Present Illness(SKN HPI Comments 38-year-old female who came to ER with content director for wound check. Per content director, patient resides at a retirement facility, has history of hypertension and diabetes but refuses to take any medications. She has history of schizophrenia and bipolar disorder. Patient has a habit of walking b arefooted for extended periods of time. Noted nonhealing wound on the sole of his left foot for the past week. Wound initially started as a blister that progressively worsened. Blood sugar upon arrival was 335 Chief Complaint: Wound Check Time Seen by MD: 03:58 History of Present Illness: Nurses Notes Allergies: Coded Allergies: NO KNOWN ALLERGIES (Unverified , 01/21/24) Home Meds Active Scripts Loperamide Hcl (Imodium) 2 Mg Cp, 2 MG PO Q4HP PRN for 7 Days, #30 CAP Prov:ANIVAL LEON MD 03/07/24 Reported Medications Aripiprazole Monohydrate (ABILIFY MAINTENA) 400 Mg Inj, 400 MG IM QMONTH for PSYCHOSIS, INJ 01/26/24 Fluphenazine HCl (Fluphenazine Hydrochlorid) 10 Mg Tab, 50 MG PO BID for ANTIPSYCHOSIC, TAB 01/26/24 Oxcarbazepine (Trileptal) 600 Mg Tab, 150 MG PO BID, TAB 01/26/24 Trazodone Hcl (Trazodone Hcl) 150 Mg Tab, 1 TAB PO QPM for ANTIDEPRESSANT, #30 TAB 1 Refill 01/26/24 Aripiprazole (Abilify) 15 Mg Tab, 15 MG PO DAILY for SCHIZOPHRENIA, TAB 01/26/24 Rivaroxaban (XARELTO) 10 Mg Tab, 10 MG PO DAILY for LT LEG DVT, TAB 01/26/24 Levothyroxine Sodium (Levothyroxine Sodium) 50 Mcg Tab, 50 MCG PO QAM for HYPOTHYROID for 30 Days, MCG 01/26/24 Amlodipine Besylate (Amlodipine Besylate) 5 Mg Tab, 5 MG PO DAILY for CA CHANNEL RIGOBERTO /HTN for 30 Days, MG 01/26/24 Atorvastatin Calcium (ATORVASTATIN CALCIUM) 20 Mg Tab, 20 MG PO HS for HIPERLIPEDEMIA, TAB 01/26/24 Hydroxyzine Hcl (Hydroxyzine Hcl) 50 Mg Tab, 50 MG PO BID for ANTI ANXIETY, TAB 01/26/24 Glyburide (Glyburide) 5 Mg Tab, 5 MG PO BID for ANTIDIBETIC MEDICATION for 30 Days, MG 01/26/24 Information Source: Patient Mode of Arrival: Ambulatory Severity: Moderate Timing: Hours Duration: Since onset Prehospital treatment: None Location: Extremities (Left foot) Mechanism: Spontaneous Onset Condition of Object: Dirty Associated Signs and Symptoms: Redness, Pus Review of Systems REVIEW OF SYSTEMS: No fever, no chills, or fatigue HEENT: No sore throat, no earache, no congestion, no neck pain. Cardiac: No chest pain. No palpitations. Lungs: No shortness of breath, no cough. GI: No nausea, no vomiting, no diarrhea, no constipation, no abdominal pain : No dysuria, frequency, or urgency. No hematuria. Musculoskeletal: No joint pain , no joint swelling, no extremity edema. Skin: No rash, no itching (+) open wound left foot Neuro: No headache, no dizziness, no weakness Vital Signs Vital Signs Date Time Temp Pulse Resp B/P (MAP) Pulse Ox O2 Delivery O2 Flow Rate FiO2 06/18/24 01:15 97.8 97 13 138/66 (90) 99 97.8 Physical Exam General: Awake, alert and oriented. No acute distress. Skin: Skin in warm, dry and intact without rashes or lesions. HEENT: The head is normocephalic and atraumatic. Conjunctivae are clear without exudates or hemorrhage. Sclera is non-icteric. Neck: Normal range of motion. No JVD. Cardiac: Regular rate Respiratory: No signs of respiratory distress. No Stridor. Extremities: Left foot plantar aspect with ulceration, surrounding erythema, swelling of the foot. Neurological: The patient is awake, alert and oriented to person, place, and time with normal speech. Speech is clear. There is no facial asymmetry. Psychiatric: Appropriate mood and affect. Good judgement and insight. Past Medical History PAST MEDICAL HISTORY: DM, High Lipids, HTN, Schizophrenia Past Medical History (Other): Bipolar disorder Surgical History: Denies all surgeries FILM MAKER History: Denies all FILM MAKER Hx Family History Family History: Reviewed,noncontributory to illness Social History Smoker: Non-Smoker Alcohol: Denies ETOH Use Drugs: Denies Drug Use Lives In: Detention Was a procedure done? Was a procedure done?: No Differential Diagnosis (INTG) Abscess: Abscess, Cellulitis, Gas Gangrene Differential Diagnosis: Cellulitis, Osteomyelitis X-Ray, Labs, Meds, VS Vital Signs Date Time Temp Pulse Resp B/P (MAP) Pulse Ox O2 Delivery O2 Flow Rate FiO2 06/18/24 01:15 97.8 97 13 138/66 (90) 99 97.8 Lab Test 06/18/24 01:19 Range/Units POC Glucose 335 H 70-106 mg/dl Time of 1ST Reevaluation: 04:48 Reevaluation 1ST: Patient Education/Counseling: Other (Need for admission) Family Education/Counseling: Other (Need for admission) Departure 1 Departure Time of Disposition: 04:48 Impression: Primary Impression: Eloped from emergency department Additional Impression: Diabetic foot ulcer Disposition: LEFT AWOL/ELOPED Condition: Other Comments She will seen and evaluated in the emergency department. 38-year-old female with concern for infected diabetic foot ulcer. Patient eloped with content director from the ED prior to completing workup and treatment. Critical Care Note Critical Care Time?: No Stability Stability form required: No I personally scribed for PENNY ARAYA MD ([email or web address]) on 06/18/24 at 04:00. Electronically submitted by Marky Nair ([email or web address]). PENNY ARAYA MD June 18, 2024 04:00
== END 2024-06-18 04:59 | disposition left against medical advice (07) ==
LOC: ER 23:59
DX: E11.621 Type 2 diabetes mellitus with foot ulcer (principal); Z48.00 Encounter for change or removal of nonsurgical wound dressing; F20.9 Schizophrenia, unspecified; F31.9 Bipolar disorder, unspecified; I10 Essential (primary) hypertension; Z79.01 Long term (current) use of anticoagulants; Z79.84 Long term (current) use of oral hypoglycemic drugs; Z79.899 Other long term (current) drug therapy
CPT/HCPCS: 82947; 82962

== ENCOUNTER 2024-06-18 10:58 | Emergency (ER) | payer MEDICARE, MEDICAID ==
[~2024-06-18] VITALS: Ht 167.6 cm; Wt 122.7 kg
[2024-06-18 11:28] VITALS: BP 110/77; PULSE 99; RESP 20; TEMP 98; O2SAT 98
--- NOTE | 2024-06-18 12:02 | ED.PDOC ---
History of Present Illness HPI Comments 38F presents to the Er w/ a family member and w/ prior MHx of DM on/off w/ medication, HTN, DVT, Autism, ADHD, Schizophrenic, Bipolar Disorder, High Lipids and the c/c of a wound check. Pt's family reports that last week on Friday the pt reported ton the family and nursing staff that she has a blister on her left foot, where the nurses cleaned and bandaged the wound. Pt showed the blister on the left foot to family yesterday w/ it looking infected. Pt reports a 9/10 in the pain scale. The family member reports on them being in the ER yesterday but the pt leaving AMA. Social Hx of Vape/Tobacco use, rare alcohol use, and no substance use. Denies chills, fever, N/V/D, SOB, CP, or other associated symptom's, modifiers, or recent injuries or sick contact at this time. Chief Complaint: Wound Check Time Seen by MD: 11:30 Reviewed Notes: Nurses Notes, Medications, Allergies Allergies: Coded Allergies: NO KNOWN ALLERGIES (Unverified , 01/21/24) Home Meds Active Scripts Loperamide Hcl (Imodium) 2 Mg Cp, 2 MG PO Q4HP PRN for 7 Days, #30 CAP Prov:ANIVAL LEON MD 03/07/24 Reported Medications Aripiprazole Monohydrate (ABILIFY MAINTENA) 400 Mg Inj, 400 MG IM QMONTH for PSYCHOSIS, INJ 01/26/24 Fluphenazine HCl (Fluphenazine Hydrochlorid) 10 Mg Tab, 50 MG PO BID for ANTIPSYCHOSIC, TAB 01/26/24 Oxcarbazepine (Trileptal) 600 Mg Tab, 150 MG PO BID, TAB 01/26/24 Trazodone Hcl (Trazodone Hcl) 150 Mg Tab, 1 TAB PO QPM for ANTIDEPRESSANT, #30 TAB 1 Refill 01/26/24 Aripiprazole (Abilify) 15 Mg Tab, 15 MG PO DAILY for SCHIZOPHRENIA, TAB 01/26/24 Rivaroxaban (XARELTO) 10 Mg Tab, 10 MG PO DAILY for LT LEG DVT, TAB 01/26/24 Levothyroxine Sodium (Levothyroxine Sodium) 50 Mcg Tab, 50 MCG PO QAM for HYPOTHYROID for 30 Days, MCG 01/26/24 Amlodipine Besylate (Amlodipine Besylate) 5 Mg Tab, 5 MG PO DAILY for CA CHANNEL RIGOBERTO /HTN for 30 Days, MG 01/26/24 Atorvastatin Calcium (ATORVASTATIN CALCIUM) 20 Mg Tab, 20 MG PO HS for HIPERLIPEDEMIA, TAB 01/26/24 Hydroxyzine Hcl (Hydroxyzine Hcl) 50 Mg Tab, 50 MG PO BID for ANTI ANXIETY, TAB 01/26/24 Glyburide (Glyburide) 5 Mg Tab, 5 MG PO BID for ANTIDIBETIC MEDICATION for 30 Days, MG 01/26/24 Information Source: Patient, Relative Mode of Arrival: Ambulatory Severity: Moderate Timing: Weeks Duration: Since onset Prehospital treatment: None Past Medical History PAST MEDICAL HISTORY: DM, High Lipids, HTN, Schizophrenia Past Medical History (Other): DVT, Autism, Bipolar Disorder and ADHD Surgical History: Denies all surgeries COMMUNITY MARKETING COORDINATOR History: Denies all COMMUNITY MARKETING COORDINATOR Hx Family History Family History: Reviewed,noncontributory to illness, Unknown Social History Smoker: Cigarettes, Other (Vape use) Alcohol: Rarely Drugs: Denies Drug Use Lives In: [facility] Constitutional: reports: others (Wound check); denies: chills, diaphoresis, fatigue, fever, malaise, sweats, weakness EENTM: denies: blurred vision, double vision, ear bleeding, ear discharge, ear drainage, ear pain, ear ringing, eye pain, eye redness, hearing loss, mouth pain, mouth swelling, nasal discharge, nose bleeding, nose congestion, nose pain, photophobia, tearing, throat pain, throat swelling, voice changes, others Respiratory: denies: cough, hemoptysis, orthopnea, SOB at rest, shortness of breath, SOB with excertion, stridor, wheezing, others Cardiovascular: denies: chest pain, dizzy spells, diaphoresis, Dyspnea on exertion, edema, irregular heart beat, left arm pain, lightheadedness, palpitations, PND, syncope, others Gastrointestinal: denies: abdomen distended, abdominal pain, blood streaked bowels, constipated, diarrhea, dysphagia, difficulty swallowing, hematemesis, melena, nausea, poor appetite, poor fluid intake, rectal bleeding, rectal pain, vomiting, others Genitourinary: denies: abnormal vagina bleeding, burning, dyspareunia, dysuria, flank pain, frequency, hematuria, incontinence, pain, , vagina discharge, urgency, others Neurological: denies: dizziness, fainting, headache, left sided numbness, left sided weakness, numbness, paresthesia, pre-existing deficit, right sided numbness, right sided weakness, seizure, speech problems, tingling, tremors, weakness, others Musculoskeletal: denies: back pain, gout, joint pain, joint swelling, muscle pain, muscle stiffness, neck pain, others Integumetry: denies: bruises, change in color, change in hair/nails, dryness, laceration, lesions, lumps, rash, wounds, others Allergic/Immunocompromised: denies: Difficulty Healing, Frequent Infections, Hives, Itching, others Hematologic/Lymphatic: denies: anemia, blood clots, easy bleeding, easy bruising, swollen glands, others Endocrine: denies: excessive hunger, excessive sweating, excessive thirst, excessive urination, flushing, intolerance to cold, intolerance to heat, unexplained weight gain, unexplained weight loss, others Psychiatric: denies: anxiety, bipolar disorder, depression, hopeless, panic disorder, schizophrenia, sleepless, suicidal, others All Other Systems: Reviewed and Negative Physical Exam General Appearance: No Apparent Distress HEENT: Normal ENT Inspection, Pharynx Normal, TMs Normal Neck: Full Range of Motion, Non-Tender, Normal, Normal Inspection Respiratory: Chest Non-Tender, Lungs Clear, No Accessory Muscle Use, No Respiratory Distress, Normal Breath Sounds Cardiovascular: No Edema, No JVD, No Murmur, No Gallop, Normal Peripheral Pulses, Regular Rate/Rhythm Breast Exam: Deferred Gastrointestinal: No Organomegaly, Non Tender, No Pulsatile Mass, Normal Bowel Sounds, Soft Genitalia: Deferred Pelvic: Deferred Rectal: Deferred Extremities: No calf tenderness, Normal capillary refill, No pedal edema Musculoskeletal : Apperance: Normal Neurologic: Alert, after school program coordinator II-XII nml as Tested, No Motor Deficits, Normal Affect, Normal Mood, No Sensory Deficits Cerebellar Function: Normal Reflexes: Normal Skin: Dry, Warm, Other (There is a wound to the plantar aspect of the left foot) Lymphatic: No Adenopathy Was a procedure done? Was a procedure done?: No Differential Dx Considerations may include: At this time, the patient's seems to have eloped from the department's We did order labs as well as a CAT scan but the patient has eloped X-Ray, Labs, Meds, VS Vital Signs Date Time Temp Pulse Resp B/P (MAP) Pulse Ox O2 Delivery O2 Flow Rate FiO2 06/18/24 11:28 98.0 99 20 110/77 (88) 98 98.0 Left foot wound Time of 1ST Reevaluation: 12:00 Reevaluation 1ST: Unchanged Patient Education/Counseling: Diagnosis, Treatment, Prognosis Family Education/Counseling: Diagnosis, Treatment, Prognosis Departure 1 Departure Time of Disposition: 13:57 Impression: Primary Impression: Aggressive behavior Additional Impressions: Wound of left foot Diabetes Qualified Codes: E13.9 - Other specified diabetes mellitus without complica tions Disposition: 07 LEFT AWOL/ELOPED Condition: Fair Critical Care Note Critical Care Time?: No Stability Stability form required: No Heart Score Heart Score: Heart Score Response (Comments) Value History N/A 0 EKG N/A 0 Age N/A 0 Risk Factors N/A 0 Troponin N/A 0 Total 0 I personally scribed for VINOD AVALOS MD ([email or web address]) on 06/18/24 at 12:02. Electronically submitted by Jason Campbell ([email or web address]). VINOD AVALOS MD June 18, 2024 12:02
== END 2024-06-18 13:48 | disposition left against medical advice (07) ==
LOC: ER 10:58
DX: S90.921D Unspecified superficial injury of right foot, subsequent encounter (principal); I10 Essential (primary) hypertension; E11.9 Type 2 diabetes mellitus without complications; F17.210 Nicotine dependence, cigarettes, uncomplicated; F17.290 Nicotine dependence, other tobacco product, uncomplicated; F20.9 Schizophrenia, unspecified; F31.9 Bipolar disorder, unspecified; F84.0 Autistic disorder; Z48.00 Encounter for change or removal of nonsurgical wound dressing; Z79.84 Long term (current) use of oral hypoglycemic drugs; Z79.899 Other long term (current) drug therapy; Z86.718 Personal history of other venous thrombosis and embolism; X58.XXXD Exposure to other specified factors, subsequent encounter

== ENCOUNTER 2024-07-27 16:51 | Emergency (ER) | payer MEDICARE, MEDICAID ==
[~2024-07-27] VITALS: Ht 167.6 cm; Wt 123.3 kg
== END 2024-07-27 19:00 | disposition left against medical advice (07) ==
LOC: ER 16:51
DX: H57.13 Ocular pain, bilateral (principal); Z53.21 Procedure and treatment not carried out due to patient leaving prior to being seen by health care provider

== ENCOUNTER 2024-08-15 21:35 | Emergency (ER) | payer MEDICARE, MEDICAID ==
[~2024-08-15] VITALS: Ht 167.6 cm; Wt 120.0 kg
[2024-08-15 21:58] VITALS: BP 126/70; PULSE 122; RESP 17; TEMP 98; O2SAT 98
--- NOTE | 2024-08-15 22:03 | ED.PDOC ---
History of Present Illness(SKN HPI Comments 28 y.o female with PMHx of schizophrenia, DM, HTN and HLD, presents to the ED for a chief complaint of a painful chronic wound on the plantar surface of the left foot, present for about one year. Patient was brought in by caregiver who reports patient has had this non healing wound for a year. The wound was previous under treatment but was neglected for the past 2-3 weeks after the patient was hospitalized under a 5150 hold for acute behavioral issues. During his hospitalization, the wound was neither cleaned nor assessed by medical staff. Since discharge, the patient has experienced increased pain at the wound site. She was evaluated by her PCP who recommended OTC topical ointment. However, due to concerns about potential worsening of the wound, the caregiver would like patient to have antibiotics and wound care for patient. No fever, chills, nausea or vomiting reported. Patient was able to bear weight to left foot . Was tachycardic at arrival. Time Seen by MD: 21:48 History of Present Illness: Nurses Notes, Medications, Allergies Allergies: Coded Allergies: NO KNOWN ALLERGIES (Unverified , 01/21/24) Home Meds Active Scripts Loperamide Hcl (Imodium) 2 Mg Cp, 2 MG PO Q4HP PRN for 7 Days, #30 CAP Prov:ANIVAL LEON MD 03/07/24 Reported Medications Aripiprazole Monohydrate (ABILIFY MAINTENA) 400 Mg Inj, 400 MG IM QMONTH for PSYCHOSIS, INJ 01/26/24 Fluphenazine HCl (Fluphenazine Hydrochlorid) 10 Mg Tab, 50 MG PO BID for AN TIPSYCHOSIC, TAB 01/26/24 Oxcarbazepine (Trileptal) 600 Mg Tab, 150 MG PO BID, TAB 01/26/24 Trazodone Hcl (Trazodone Hcl) 150 Mg Tab, 1 TAB PO QPM for ANTIDEPRESSANT, #30 TAB 1 Refill 01/26/24 Aripiprazole (Abilify) 15 Mg Tab, 15 MG PO DAILY for SCHIZOPHRENIA, TAB 01/26/24 Rivaroxaban (XARELTO) 10 Mg Tab, 10 MG PO DAILY for LT LEG DVT, TAB 01/26/24 Levothyroxine Sodium (Levothyroxine Sodium) 50 Mcg Tab, 50 MCG PO QAM for HYPOTHYROID for 30 Days, MCG 01/26/24 Amlodipine Besylate (Amlodipine Besylate) 5 Mg Tab, 5 MG PO DAILY for CA CHANNEL RIGOBERTO /HTN for 30 Days, MG 01/26/24 Atorvastatin Calcium (ATORVASTATIN CALCIUM) 20 Mg Tab, 20 MG PO HS for HIPERLIPEDEMIA, TAB 01/26/24 Hydroxyzine Hcl (Hydroxyzine Hcl) 50 Mg Tab, 50 MG PO BID for ANTI ANXIETY, TAB 01/26/24 Glyburide (Glyburide) 5 Mg Tab, 5 MG PO BID for ANTIDIBETIC MEDICATION for 30 Days, MG 01/26/24 Information Source: Patient, Legal Guardian Mode of Arrival: Ambulatory Severity: Moderate Timing: Months Duration: Since onset Prehospital treatment: None Location: Foot Mechanism: Preceding Wound Object: None Wound Type: Unknown Tetanus: UTD History of: Diabetes Associated Signs and Symptoms: Redness, Swelling, Pain Past Medical History PAST MEDICAL HISTORY: DM, High Lipids, HTN, Schizophrenia Surgical History: Denies all surgeries LIFE SCIENCES INSTRUCTOR History: Denies all LIFE SCIENCES INSTRUCTOR Hx Family History Family History: Reviewed,noncontributory to illness, Unknown Social History Smoker: Cigarettes, Other Alcohol: Rarely Drugs: Denies Drug Use Lives In: Skilled Nursing Constitutional: denies: chills, diaphoresis, fatigue, fever, malaise, sweats, weakness, others EENTM: denies: blurred vision, double vision, ear bleeding, ear discharge, ear drainage, ear pain, ear ringing, eye pain, eye redness, hearing loss, mouth pain, mouth swelling, nasal discharge, nose bleeding, nose congestion, nose pain, photophobia, tearing, throat pain, throat swelling, voice changes, others Respiratory: denies: cough, hemoptysis, orthopnea, SOB at rest, shortness of breath, SOB with excertion, stridor, wheezing, others Cardiovascular: denies: chest pain, dizzy spells, diaphoresis, Dyspnea on exertion, edema, irregular heart beat, left arm pain, lightheadedness, palpitations, PND, syncope, others Gastrointestinal: denies: abdomen distended, abdominal pain, blood streaked bowels, constipated, diarrhea, dysphagia, difficulty swallowing, hematemesis, melena, nausea, poor appetite, poor fluid intake, rectal bleeding, rectal pain, vomiting, others Genitourinary: denies: abnormal vagina bleeding, burning, dyspareunia, dysuria, flank pain, frequency, hematuria, incontinence, pain, , vagina discharge, urgency, others Neurological: denies: dizziness, fainting, headache, left sided numbness, left sided weakness, numbness, paresthesia, pre-existing deficit, right sided numbness, right sided weakness, seizure, speech problems, tingling, tremors, weakness, others Musculoskeletal: denies: back pain, gout, joint pain, joint swelling, muscle pain, muscle stiffness, neck pain, others Integumetry: reports: wounds (Pedal aspect of left forefoot); denies: bruises, change in color, change in hair/nails, dryness, laceration, lesions, lumps, rash, others Allergic/Immunocompromised: denies: Difficulty Healing, Frequent Infections, Hives, Itching, others Hematologic/Lymphatic: denies: anemia, blood clots, easy bleeding, easy bruising, swollen glands, others Endocrine: denies: excessive hunger, excessive sweating, excessive thirst, excessive urination, flushing, intolerance to cold, intolerance to heat, unexplained weight gain, unexplained weight loss, others Psychiatric: denies: anxiety, bipolar disorder, depression, hopeless, panic disorder, schizophrenia, sleepless, suicidal, others All Other Systems: Reviewed and Negative Physical Exam Exam Comments Patient appears to be highly disabled. General Appearance: Mild Distress (Moderate distress due to foot pain concerns. Patient declined any pain medication.), Obese HEENT: Normal ENT Inspection, Pharynx Normal, TMs Normal Neck: Full Range of Motion, Non-Tender, Normal, Normal Inspection Respiratory: Chest Non-Tender, Lungs Clear, No Accessory Muscle Use, No Respiratory Distress, Normal Breath Sounds Cardiovascular: No Edema, No JVD, No Murmur, No Gallop, Normal Peripheral Pulses, Regular Rate/Rhythm Breast Exam: Deferred Gastrointestinal: No Organomegaly, Non Tender, No Pulsatile Mass, Normal Bowel Sounds, Soft Genitalia: Deferred Pelvic: Deferred Rectal: Deferred Extremities: Other (Patient displays a sporting eschar on the pedal aspect of the forefoot. Mild tissue excoriation noted.) Neurologic: Alert, No Motor Deficits, Normal Affect, Normal Mood, No Sensory Deficits Cerebellar Function: NOT DONE Reflexes: NOT DONE Skin: Dry, Normal Color, Warm Lymphatic: No Adenopathy Was a procedure done? Was a procedure done?: No Differential Diagnosis (INTG) Differential Diagnosis: Cellulitis, Contusion, Puncture Wound Differential Diagnosis: Osteomyelitis X-Ray, Labs, Meds, VS Vital Signs Date Time Temp Pulse Resp B/P (MAP) Pulse Ox O2 Delivery O2 Flow Rate FiO2 08/15/24 21:58 98.0 122 17 126/70 (88) 98 98.0 Lab Test 08/15/24 22:00 Range/Units White Blood Count 14.1 H 4.4-10.8 10^3/uL Red Blood Count 4.10 4.0-5.20 10^6/uL Hemoglobin 12.6 12.2-16.2 g/dL Hematocrit 37.8 36.0-46.0 % Mean Corpuscular Volume 92.3 80.0-100.0 fL Mean Corpuscular Hemoglobin 30.8 28.0-32.0 pg Mean Corpuscular Hemoglobin Concent 33.3 32.0-36.0 g/dL Red Cell Distribution Width 14.6 H 11.8-14.3 % Platelet Count 401 140-450 10^3/uL Mean Platelet Volume 8.2 6.9-10.8 fL Neutrophils (%) (Auto) 67.1 37.0-80.0 % Lymphocytes (%) (Auto) 21.3 10.0-50.0 % Monocytes (%) (Auto) 9.4 0.0-12.0 % Eosinophils (%) (Auto) 1.8 0.0-7.0 % Basophils (%) (Auto) 0.4 0.0-2.0 % Neutrophils # (Auto) 9.5 H 1.6-8.6 10 ^3/uL Lymphocytes # (Auto) 3.0 0.4-5.4 10 ^3/uL Monocytes # (Auto) 1.3 0-1.3 10 ^3/uL Eosinophils # (Auto) 0.3 0-0.8 10 ^3/uL Basophils # (Auto) 0.1 0-0.2 10 ^3/uL Nucleated Red Blood Cells 0.0 % Sodium Level 139 136-145 mmol/L Potassium Level 4.0 3.5-5.1 mmol/L Chloride Level 104 98-107 mmol/L Carbon Dioxide Level 25 20-31 mmol/L Anion Gap 10 5-15 Blood Urea Nitrogen 11 9-23 mg/dL Creatinine 1.16 H 0.550-1.02 mg/dL Glomerular Filtration Rate Calc 63 >90 mL/min BUN/Creatinine Ratio 9.5 L 10.0-20.0 Serum Glucose 205 H 74-106 mg/dL Lactic Acid Level 1.3 0.4-2.0 mmol/L Calcium Level 10.0 8.7-10.4 mg/dL X-Ray, Labs, Meds, VS Comment All studies performed the ED were evaluated by me personally. CT of the left foot results were pending at time of this note. Serum laboratories revealed a leukocytosis. Patient was given a dose of Rocephin. Irrespective of CT results, patient will need to be admitted for at the very least cellulitis of the left foot requiring it least a alining inspector evaluation and wound care establishment due to her diabetic state. If CT reveals osteomyelitis, additional antibiotics will be utilized. Time of 1ST Reevaluation: 01:48 Reevaluation 1ST: Unchanged Consultation: PCP, Other (Podiatry) Patient Education/Counseling: Diagnosis, Treatment, Other Family Education/Counseling: Diagnosis, Treatment, Prognosis, No Family Present SEPSIS Sepsis Screen Recent Procedure: No On Antibiotic Therapy: No Respiratory Rate >20: No Heart Rate >90: Yes Temp<36 C (96.8 F) or >38.3 C: No SBP <90 or MAP <65 mmHG: No New Acute Mental Status Change: No Is the patient on CPAP, BIPAP,: No Physician Orders Heplock Iv (08/15/24 ) Ct L Foot Wo Contrast (08/15/24 21:51) Urinalysis (08/15/24 21:51) Ceftriaxone 1gm/50ml D5w (Rocephin) (08/16/24 01:45) Heplock Iv (08/16/24 ) Vital Signs Date Time Temp Pulse Resp B/P (MAP) Pulse Ox O2 Delivery O2 Flow Rate FiO2 08/15/24 21:58 98.0 122 17 126/70 (88) 98 98.0 Laboratory Tests Test 08/15/24 22:00 Lactic Acid Level 1.3 mmol/L (0.4-2.0) White Blood Count 14.1 10^3/uL (4.4-10.8) H Departure 1 Departure Time of Disposition: 01:49 Impression: Primary Impression: Diabetic foot ulcer Disposition: 09 ADMITTED INPATIENT Condition: Fair Discharged With: Self, Ticket Dispatcher Critical Care Note Critical Care Time?: No Stability Stability form required: No I personally scribed for LC CELESTIN PAC ([email or web address]) on 08/15/24 at 22:03. Electronically submitted by Marley Marcos ([email or web address]). LC CELESTIN PAC Aug 15, 2024 22:03
[2024-08-15 22:18] LABS: Hematocrit 37.8 % (36.0-46.0); Hemoglobin 12.6 g/dL (12.2-16.2); Mean Corpuscular Hemoglobin 30.8 pg (28.0-32.0); Mean Corpuscular Volume 92.3 fL (80.0-100.0); Nucleated Red Blood Cells % 0.0 %
[2024-08-15 22:27] LABS: Chloride 104 mmol/L (98-107); Potassium 4.0 mmol/L (3.5-5.1); Sodium 139 mmol/L (136-145)
[2024-08-15 22:28] LABS: Anion Gap 10 (5-15); Calcium 10.0 mg/dL (8.7-10.4); Carbon Dioxide 25 mmol/L (20-31)
[2024-08-15 22:33] LABS: BUN/Creatinine Ratio 9.5 (10.0-20.0); Blood Urea Nitrogen 11 mg/dL (9-23); Glucose 205 mg/dL (74-106)
[2024-08-16] MEDS ORDERED: cefTRIAXone 1GM/50ML D5W 50 ML IV ONE (01:45)
--- NOTE | 2024-08-16 02:30 | DVH ---
Exam: CT CT L FOOT WO CONTRAST History: Rule out forefoot osteomyelitis Comparison Study: None TECHNIQUE: Multidetector CT of the left foot. Imaging was performed without IV contrast. Axial, coron al and sagittal multiplanar reformats were obtained from the axial data set by the technologist. Radiation optimization: All CT scans at this facility use at least one of these dose optimization easton hniques: automated exposure control mA and/or kV adjustment per patient size (includes targeted exam s where dose is matched to clinical indication) or iterative reconstruction. Radiation Dose Information: CT Dose: CTDI volume is 7.75 mGy. Dose-length product is 265.03 mGy*cm FINDINGS: There is a open wound in the plantar aspect of the dorsal midfoot at the level of the 1st-2nd metatar chel phalangeal joints without discrete fluid collection or underlying osseous erosion. No discrete so ft tissue gas. No additional areas of fracture, dislocation, osseous erosion or periosteal reaction. IMPRESSION: 1. Open soft tissue wound of the level of the 1st and 2nd metatarsal plantar foot without underlying abscess or CT evidence of osteomyelitis.
== END 2024-08-16 02:24 | disposition left against medical advice (07) ==
LOC: ER 21:35
DX: E11.621 Type 2 diabetes mellitus with foot ulcer (principal); I10 Essential (primary) hypertension; E78.5 Hyperlipidemia, unspecified; F17.210 Nicotine dependence, cigarettes, uncomplicated; F20.9 Schizophrenia, unspecified; Z79.84 Long term (current) use of oral hypoglycemic drugs; Z79.899 Other long term (current) drug therapy
CPT/HCPCS: 36415; 73700; 80048; 83605; 85025

== ENCOUNTER 2024-08-16 21:05 | Emergency (ER) | payer MEDICARE, MEDICAID ==
[~2024-08-16] VITALS: Ht 167.6 cm; Wt 118.7 kg
[2024-08-16 22:00] VITALS: BP 115/76; PULSE 114; RESP 16; TEMP 98.3; O2SAT 97
[2024-08-16 22:52] LABS: Hematocrit 35.6 % (36.0-46.0); Hemoglobin 11.8 g/dL (12.2-16.2); Mean Corpuscular Hemoglobin 30.7 pg (28.0-32.0); Mean Corpuscular Volume 92.7 fL (80.0-100.0); Nucleated Red Blood Cells % 0.0 %
[2024-08-16] MEDS ORDERED: cefTRIAXone SOD 1,000 MG VL IM ONE (23:00)
[2024-08-16] MEDS ORDERED: KETOROLAC TROMETH 30 MG/ML 1ML VIAL IM ONE (23:00)
[2024-08-16 23:05] LABS: Chloride 99 mmol/L (98-107); Potassium 4.2 mmol/L (3.5-5.1)
[2024-08-16 23:06] LABS: Anion Gap 10 (5-15); Carbon Dioxide 24 mmol/L (20-31); Sodium 133 mmol/L (136-145)
[2024-08-16 23:07] LABS: Calcium 9.7 mg/dL (8.7-10.4)
[2024-08-16 23:12] LABS: BUN/Creatinine Ratio 9.9 (10.0-20.0); Blood Urea Nitrogen 14 mg/dL (9-23)
[2024-08-16 23:13] LABS: Glucose 285 mg/dL (74-106)
[2024-08-16] MEDS ORDERED: VANCOMYCIN 1GM/200ML PM 250 ML IV ONE (23:45)
[2024-08-16] MEDS ORDERED: SODIUM CHLORIDE 0.9% 1,000 ML IV ONE (23:45)
[2024-08-16] MEDS ORDERED: PIPERACILLIN-TAZOB 3.375GM 100 ML IV ONE (23:45)
--- NOTE | 2024-08-16 23:50 | ED.PDOC ---
History of Present Illness HPI Comments 38 y/o F presents with marketing underwriter for wound check. Significant history of ASD - requires substantial support, DM, HLD, HTN, and schizophrenia. Patient has a current unhealing ulcer wound to the base of her left plantar, between digits 1 and 2, that has showed recent signs of discharge, with associated left foot pain, redness, and swelling. Patient has been on several different antibiotics, with wound returning soon after completing course. Most recent antibiotic, Cephalexin, was prescribed to her, yesterday, during a visit, earlier, today, at an urgent care facility after being seen and leaving [facility] from [facility] ED, yesterday. No fever, chills, or further acute symptoms reported. Chief Complaint: Wound Check Time Seen by MD: 22:15 Reviewed Notes: Nurses Notes, Medications, Allergies Allergies: Coded Allergies: NO KNOWN ALLERGIES (Unverified , 01/21/24) Home Meds Active Scripts Loperamide Hcl (Imodium) 2 Mg Cp, 2 MG PO Q4HP PRN for 7 Days, #30 CAP Prov:ANIVAL LEON MD 03/07/24 Reported Medications Aripiprazole Monohydrate (ABILIFY MAINTENA) 400 Mg Inj, 400 MG IM QMONTH for PSYCHOSIS, INJ 01/26/24 Fluphenazine HCl (Fluphenazine Hydrochlorid) 10 Mg Tab, 50 MG PO BID for ANTIPSYCHOSIC, TAB 01/26/24 Oxcarbazepine (Trileptal) 600 Mg Tab, 150 MG PO BID, TAB 01/26/24 Trazodone Hcl (Trazodone Hcl) 150 Mg Tab, 1 TAB PO QPM for ANTIDEPRESSANT, #30 TAB 1 Refill 01/26/24 Aripiprazole (Abilify) 15 Mg Tab, 15 MG PO DAILY for SCHIZOPHRENIA, TAB 01/26/24 Rivaroxaban (XARELTO) 10 Mg Tab, 10 MG PO DAILY for LT LEG DVT, TAB 01/26/24 Levothyroxine Sodium (Levothyroxine Sodium) 50 Mcg Tab, 50 MCG PO QAM for HYPOTHYROID for 30 Days, MCG 01/26/24 Amlodipine Besylate (Amlodipine Besylate) 5 Mg Tab, 5 MG PO DAILY for CA CHANNEL RIGOBERTO /HTN for 30 Days, MG 01/26/24 Atorvastatin Calcium (ATORVASTATIN CALCIUM) 20 Mg Tab, 20 MG PO HS for HIPERLIPEDEMIA, TAB 01/26/24 Hydroxyzine Hcl (Hydroxyzine Hcl) 50 Mg Tab, 50 MG PO BID for ANTI ANXIETY, TAB 01/26/24 Glyburide (Glyburide) 5 Mg Tab, 5 MG PO BID for ANTIDIBETIC MEDICATION for 30 Days, MG 01/26/24 Information Source: Patient, Legal Guardian Mode of Arrival: Ambulatory Severity: Moderate Timing: Weeks Duration: Since onset Prehospital treatment: Treatment Review of Systems: REVIEW OF SYSTEMS: No fever, no chills, or fatigue HEENT: No sore throat, no earache, no congestion, no neck pain. Cardiac: No chest pain. No palpitations. Lungs: No shortness of breath, no cough. GI: No nausea, no vomiting, no diarrhea, no constipation, no abdominal pain : No dysuria, frequency, or urgency. No hematuria. Musculoskeletal: Left foot pain and swelling. No joint pain , no joint swelling Skin: Redness to the foot. Ulcer wound to left foot plantar No rash, no itching. Neuro: No headache, no dizziness, no weakness Vital Signs Vital Signs Date Time Temp Pulse Resp B/P (MAP) Pulse Ox O2 Delivery O2 Flow Rate FiO2 08/16/24 22:00 98.3 114 16 115/76 (89) 97 98.3 Physical Exam General: Awake, alert and oriented. No acute distress. Skin: Skin in warm, dry and intact. Appropriate color for ethnicity. Ulcer wound to the base of left foot in the metatarsal area between digits 1 and 2 with necrotizing appearance and associated left foot swallowing and mild erythema HEENT: The head is normocephalic and atraumatic. Conjunctivae are clear without exudates or hemorrhage. Sclera is non-icteric. EOM are intact. No signs of nystagmus. Eyelids are normal in appearance without swelling or lesions. Oral mucosa is pink and moist Neck: The neck is supple with normal range of motion. No JVD. Cardiac: Heart rate and rhythm are normal. No murmurs, gallops, or rubs are auscultated. Respiratory: No signs of respiratory distress. Lung sounds are clear in all lobes bilaterally without rales, rhonchi, or wheezes. Abdominal: Abdomen is soft, non-tender without distention, guarding or rigidity. Bowel sounds are present and normoactive in all four quadrants. Extremities: Upper and lower extremities are atraumatic in appearance without deformity or edema. Neurological: The patient is awake, alert and oriented to person, place, and time with normal speech. Speech is clear. There is no facial asymmetry. Psychiatric: Appropriate mood and affect. Good judgement and insight. Past Medical History PAST MEDICAL HISTORY: DM, High Lipids, HTN, Schizophrenia Past Medical History (Other): Autism spectrum disorder (ASD) Surgical History: Denies all surgeries SENIOR RESEARCH EXECUTIVE History: Denies all SENIOR RESEARCH EXECUTIVE Hx Family History Family History: Reviewed,noncontributory to illness, Unknown Social History Smoker: Cigarettes, Other Alcohol: Rarely Drugs: Denies Drug Use Lives In: Group Home Was a procedure done? Was a procedure done?: No Differential Dx Considerations may include: Nonhealing diabetic wound, sepsis, osteomyelitis, dermatitis, cellulitis, among others X-Ray, Labs, Meds, VS Vital Signs Date Time Temp Pulse Resp B/P (MAP) Pulse Ox O2 Delivery O2 Flow Rate FiO2 08/16/24 22:00 98.3 114 16 115/76 (89) 97 98.3 Lab Test 08/16/24 22:33 08/16/24 21:47 Range/Units White Blood Count 15.3 H 4.4-10.8 10^3/uL Red Blood Count 3.84 L 4.0-5.20 10^6/uL Hemoglobin 11.8 L 12.2-16.2 g/dL Hematocrit 35.6 L 36.0-46.0 % Mean Corpuscular Volume 92.7 80.0-100.0 fL Mean Corpuscular Hemoglobin 30.7 28.0-32.0 pg Mean Corpuscular Hemoglobin Concent 33.1 32.0-36.0 g/dL Red Cell Distribution Width 14.6 H 11.8-14.3 % Platelet Count 396 140-450 10^3/uL Mean Platelet Volume 8.1 6.9-10.8 fL Neutrophils (%) (Auto) 68.3 37.0-80.0 % Lymphocytes (%) (Auto) 19.1 10.0-50.0 % Monocytes (%) (Auto) 10.3 0.0-12.0 % Eosinophils (%) (Auto) 1.9 0.0-7.0 % Basophils (%) (Auto) 0.4 0.0-2.0 % Neutrophils # (Auto) 10.4 H 1.6-8.6 10 ^3/uL Lymphocytes # (Auto) 2.9 0.4-5.4 10 ^3/uL Monocytes # (Auto) 1.6 H 0-1.3 10 ^3/uL Eosinophils # (Auto) 0.3 0-0.8 10 ^3/uL Basophils # (Auto) 0.1 0-0.2 10 ^3/uL Nucleated Red Blood Cells 0.0 % Sodium Level 133 #L 136-145 mmol/L Potassium Level 4.2 3.5-5.1 mmol/L Chloride Level 99 98-107 mmol/L Carbon Dioxide Level 24 20-31 mmol/L Anion Gap 10 5-15 Blood Urea Nitrogen 14 9-23 mg/dL Creatinine 1.42 H 0.550-1.02 mg/dL Glomerular Filtration Rate Calc 49 >90 mL/min BUN/Creatinine Ratio 9.9 L 10.0-20.0 Serum Glucose 285 H 74-106 mg/dL Calcium Level 9.7 8.7-10.4 mg/dL POC Glucose 265 H 70-106 mg/dl Time of 1ST Reevaluation: 22:45 Reevaluation 1ST: Unchanged Patient Education/Counseling: Other (Need for admission) Family Education/Counseling: Other (Need for admission) SEPSIS Sepsis Screen Date sepsis recognized/suspect: Aug 16, 2024 Time Sepsis recognized/suspect: 2145 Recent Procedure: No On Antibiotic Therapy: No Respiratory Rate >20: No Heart Rate >90: Yes Temp<36 C (96.8 F) or >38.3 C: No SBP <90 or MAP <65 mmHG: No New Acute Mental Status Change: No Is the patient on CPAP, BIPAP,: No Physician Orders Wound Culture W/ Gs (08/16/24 22:23) Vital Signs Date Time Temp Pulse Resp B/P (MAP) Pulse Ox O2 Delivery O2 Flow Rate FiO2 08/16/24 22:00 98.3 114 16 115/76 (89) 97 98.3 Laboratory Tests Test 08/16/24 22:33 White Blood Count 15.3 10^3/uL (4.4-10.8) H Departure 1 Departure Time of Disposition: 04:29 Impression: Primary Impression: Cellulitis of left foot Additional Impression: Diabetic foot ulcer Disposition: ADMITTED INPATIENT Condition: Stable Comments 38-year-old female with left foot cellulitis and diabetic foot ulcer. White blood cell count increased since yesterday. Imaging from yesterday reviewed showing no osteomyelitis or abscess. Patient admitted to hospitalist service for further treatment, evaluation and monitoring. Patient eloped prior to admission. Extensive evaluation was performed in attempt to identify or rule out: (See differential diagnosis section) The following tests were ordered, and results were reviewed by me and discussed with patient: (See diagnostic results section) The following test were independently interpreted by me: N/A I reviewed and agreed with the following test results read by other providers: N/A I reviewed the following notes from the pt's past medical encounters: June 17, 2024, June 18, 2024, and August 15, 2024 encounters for lower extremity, wound check, and wound check of, respectively Additional information was gathered from interviewing the following independent historians: Radiologic Therapist Discussion of management or test interpretation with external physician/other qualified health skin care instructor: N/A Decision regarding hospitalization or escalation of hospital level of care: Risk and benefits of admission for further treatment of patient's condition was considered. Due to patient's current clinical condition, high risk of decline and poor outcome if discharged and need for further inpatient management and monitoring, patient will be admitted to the hospital. Critical Care Note Critical Care Time?: No Stability Stability form required: No Heart Score Heart Score: Heart Score Response (Comments) Value History N/A 0 EKG N/A 0 Age N/A 0 Risk Factors N/A 0 Troponin N/A 0 Total 0 I personally scribed for PENNY ARAYA MD ([email or web address]) on 08/16/24 at 23:50. Electronically submitted by Gaurav Matthews ([email or web address]). PENNY ARAYA MD Aug 16, 2024 23:50
== END 2024-08-17 04:38 | disposition left against medical advice (07) ==
LOC: ER 21:05
DX: L03.116 Cellulitis of left lower limb (principal); E11.621 Type 2 diabetes mellitus with foot ulcer; F17.210 Nicotine dependence, cigarettes, uncomplicated; F10.90 Alcohol use, unspecified, uncomplicated; E78.5 Hyperlipidemia, unspecified; F20.9 Schizophrenia, unspecified; F84.0 Autistic disorder; I10 Essential (primary) hypertension; Z79.899 Other long term (current) drug therapy; Z79.890 Hormone replacement therapy; Z79.84 Long term (current) use of oral hypoglycemic drugs; Z79.01 Long term (current) use of anticoagulants; Y90.9 Presence of alcohol in blood, level not specified
CPT/HCPCS: 36415; 80048; 82947; 82962; 85025

== ENCOUNTER 2024-08-17 11:06 | Emergency (ER) | payer MEDICARE, MEDICAID ==
[~2024-08-17] VITALS: Ht 167.6 cm; Wt 11.3 kg
[2024-08-17 11:19] VITALS: BP 99/65; PULSE 97; RESP 18; TEMP 98.3; O2SAT 95
--- NOTE | 2024-08-17 11:57 | ED.PDOC ---
History of Present Illness(SKN HPI Comments This is a 38 year old female presenting to the ED with chief complaint of foot wound. Patient reports that she currently has a wound to the bottom of her left foot with redness, pain, and swelling. Patient relays that she was seen last night for the same complaint and was going to be admitted, however, she became agitated due to needing to wait in the lobby, eventually eloping before she received a bed. Patient denies any numbness, weakness, fever, or chills. Chief Complaint: Wound Check Time Seen by MD: 11:54 Primary Care Provider: UNKNOWN History of Present Illness: Nurses Notes, Medications, Allergies Allergies: Coded Allergies: NO KNOWN ALLERGIES (Unverified , 01/21/24) Home Meds Active Scripts Loperamide Hcl (Imodium) 2 Mg Cp, 2 MG PO Q4HP PRN for 7 Days, #30 CAP Prov:ANIVAL LEON MD 03/07/24 Reported Medications Aripiprazole Monohydrate (ABILIFY MAINTENA) 400 Mg Inj, 400 MG IM QMONTH for PSYCHOSIS, INJ 01/26/24 Fluphenazine HCl (Fluphenazine Hydrochlorid) 10 Mg Tab, 50 MG PO BID for ANTIPSYCHOSIC, TAB 01/26/24 Oxcarbazepine (Trileptal) 600 Mg Tab, 150 MG PO BID, TAB 01/26/24 Trazodone Hcl (Trazodone Hcl) 150 Mg Tab, 1 TAB PO QPM for ANTIDEPRESSANT, #30 TAB 1 Refill 01/26/24 Aripiprazole (Abilify) 15 Mg Tab, 15 MG PO DAILY for SCHIZOPHRENIA, TAB 01/26/24 Rivaroxaban (XARELTO) 10 Mg Tab, 10 MG PO DAILY for LT LEG DVT, TAB 01/26/24 Levothyroxine Sodium (Levothyroxine Sodium) 50 Mcg Tab, 50 MCG PO QAM for HYPOTHYROID for 30 Days, MCG 01/26/24 Amlodipine Besylate (Amlodipine Besylate) 5 Mg Tab, 5 MG PO DAILY for CA CHANNEL RIGOBERTO /HTN for 30 Days, MG 01/26/24 Atorvastatin Calcium (ATORVASTATIN CALCIUM) 20 Mg Tab, 20 MG PO HS for HIPERLIPEDEMIA, TAB 01/26/24 Hydroxyzine Hcl (Hydroxyzine Hcl) 50 Mg Tab, 50 MG PO BID for ANTI ANXIETY, TAB 01/26/24 Glyburide (Glyburide) 5 Mg Tab, 5 MG PO BID for ANTIDIBETIC MEDICATION for 30 Days, MG 01/26/24 Information Source: Patient, Spouse Mode of Arrival: Wheelchair Severity: Moderate Timing: Days Duration: Since onset Prehospital treatment: None Location: Foot Mechanism: Preceding Wound Object: None Condition of Object: None Retained Foreign Body: No Wound Type: Other Immunization Status of Animal: NA Tetanus: Unknown History of: Diabetes Associated Signs and Symptoms: Redness, Swelling Past Medical History PAST MEDICAL HISTORY: DM, High Lipids, HTN, Schizophrenia, Thyroid Surgical History: Denies all surgeries NAIL TECHNICIAN History: Denies all NAIL TECHNICIAN Hx Family History Family History: Reviewed,noncontributory to illness, Family hx of Cancer Social History Smoker: Cigarettes, Other Alcohol: Rarely Drugs: Denies Drug Use Lives In: Detention Constitutional: denies: chills, diaphoresis, fatigue, fever, malaise, sweats, weakness, others EENTM: denies: blurred vision, double vision, ear bleeding, ear discharge, ear drainage, ear pain, ear ringing, eye pain, eye redness, hearing loss, mouth pain, mouth swelling, nasal discharge, nose bleeding, nose congestion, nose pain, photophobia, tearing, throat pain, throat swelling, voice changes, others Respiratory: denies: cough, hemoptysis, orthopnea, SOB at rest, shortness of breath, SOB with excertion, stridor, wheezing, others Cardiovascular: denies: chest pain, dizzy spells, diaphoresis, Dyspnea on exertion, edema, irregular heart beat, left arm pain, lightheadedness, palpitations, PND, syncope, others Gastrointestinal: denies: abdomen distended, abdominal pain, blood streaked bowels, constipated, diarrhea, dysphagia, difficulty swallowing, hematemesis, melena, nausea, poor appetite, poor fluid intake, rectal bleeding, rectal pain, vomiting, others Genitourinary: denies: abnormal vagina bleeding, burning, dyspareunia, dysuria, flank pain, frequency, hematuria, incontinence, pain, , vagina discharge, urgency, others Neurological: denies: dizziness, fainting, headache, left sided numbness, left sided weakness, numbness, paresthesia, pre-existing deficit, right sided numbness, right sided weakness, seizure, speech problems, tingling, tremors, weakness, others Musculoskeletal: denies: back pain, gout, joint pain, joint swelling, muscle pain, muscle stiffness, neck pain, others Integumetry: reports: wounds (Left foot); denies: bruises, change in color, change in hair/nails, dryness, laceration, lesions, lumps, rash, others Allergic/Immunocompromised: denies: Difficulty Healing, Frequent Infections, Hives, Itching, others Hematologic/Lymphatic: denies: anemia, blood clots, easy bleeding, easy bruising, swollen glands, others Endocrine: denies: excessive hunger, excessive sweating, excessive thirst, excessive urination, flushing, intolerance to cold, intolerance to heat, unexplained weight gain, unexplained weight loss, others Psychiatric: denies: anxiety, bipolar disorder, depression, hopeless, panic disorder, schizophrenia, sleepless, suicidal, others All Other Systems: Reviewed and Negative Physical Exam General Appearance: Moderate Distress HEENT: Normal ENT Inspection, Pharynx Normal, TMs Normal Neck: Full Range of Motion, Non-Tender, Normal, Normal Inspection Respiratory: Chest Non-Tender, Lungs Clear, No Accessory Muscle Use, No Respiratory Distress, Normal Breath Sounds Cardiovascular: No Edema, No JVD, No Murmur, No Gallop, Normal Peripheral Pulses, Regular Rate/Rhythm Breast Exam: Deferred Gastrointestinal: No Organomegaly, Non Tender, No Pulsatile Mass, Normal Bowel Sounds, Soft Genitalia: Deferred Pelvic: Deferred Rectal: Deferred Extremities: No calf tenderness, Normal capillary refill, No pedal edema Musculoskeletal : Apperance: Normal Neurologic: Alert, doctor of naturopathic medicine II-XII nml as Tested, No Motor Deficits, Normal Affect, Normal Mood, No Sensory Deficits Cerebellar Function: Normal Reflexes: Normal Skin: Dry, Normal Color, Warm, Other (Left foot with cellulitis and tenderness) Lymphatic: No Adenopathy Was a procedure done? Was a procedure done?: No Differential Diagnosis (INTG) Differential Diagnosis: Cellulitis X-Ray, Labs, Meds, VS Vital Signs Date Time Temp Pulse Resp B/P (MAP) Pulse Ox O2 Delivery O2 Flow Rate FiO2 08/17/24 11:19 98.3 97 18 99/65 (76) 95 98.3 Lab Test 08/17/24 11:59 Range/Units White Blood Count 16.2 H 4.4-10.8 10^3/uL Red Blood Count 3.81 L 4.0-5.20 10^6/uL Hemoglobin 11.8 L 12.2-16.2 g/dL Hematocrit 35.9 L 36.0-46.0 % Mean Corpuscular Volume 94.2 80.0-100.0 fL Mean Corpuscular Hemoglobin 30.9 28.0-32.0 pg Mean Corpuscular Hemoglobin Concent 32.8 32.0-36.0 g/dL Red Cell Distribution Width 14.8 H 11.8-14.3 % Platelet Count 407 140-450 10^3/uL Mean Platelet Volume 7.8 6.9-10.8 fL Neutrophils (%) (Auto) 74.0 37.0-80.0 % Lymphocytes (%) (Auto) 14.3 10.0-50.0 % Monocytes (%) (Auto) 9.5 0.0-12.0 % Eosinophils (%) (Auto) 1.9 0.0-7.0 % Basophils (%) (Auto) 0.3 0.0-2.0 % Neutrophils # (Auto) 12.0 H 1.6-8.6 10 ^3/uL Lymphocytes # (Auto) 2.3 0.4-5.4 10 ^3/uL Monocytes # (Auto) 1.5 H 0-1.3 10 ^3/uL Eosinophils # (Auto) 0.3 0-0.8 10 ^3/uL Basophils # (Auto) 0.1 0-0.2 10 ^3/uL Nucleated Red Blood Cells 0.0 % Yesterday's CT Left Foot indicates: Open soft tissue wound of the level of the 1st and 2nd metatarsal plantar foot without underlying abscess or CT evidence of osteomyelitis. The patient's CBC shows an elevated white blood cell count of 16.2 At this time, the patient is being admitted The patient has already had a CAT scan done The patient is being started on vancomycin The foot and ankle surgeon will be consulted. Images Reviewed?: Images reviewed and evaluated by me Time of 1ST Reevaluation: 13:20 Reevaluation 1ST: Unchanged Patient Education/Counseling: Diagnosis, Treatment, Prognosis Family Education/Counseling: Diagnosis, Treatment, Prognosis Additional Information Reviewed patient's previous visit(s): 08/15/24 for left diabetic foot wound The following tests were ordered, and results were reviewed by me: CBC Additional information was gathered from interviewing the following independent historian: I reviewed and agreed with the following test results read by other provider: None I discussed treatments and results with medical personnel and: Patient Comprehensive systems review obtained and negative except for what is stated in the HPI. SEPSIS Sepsis Screen Date sepsis recognized/suspect: Aug 17, 2024 Time Sepsis recognized/suspect: 1119 Recent Procedure: No On Antibiotic Therapy: No Respiratory Rate >20: No Heart Rate >90: Yes (97) Temp<36 C (96.8 F) or >38.3 C: No SBP <90 or MAP <65 mmHG: No New Acute Mental Status Change: No Is the patient on CPAP, BIPAP,: No Physician Orders Heplock Iv (08/17/24 11:48) Instrument And Control Technician (08/17/24 11:48) Blood Pressure (08/17/24 11:48) Pulse Oximetry (08/17/24 11:48) Vital Signs Date Time Temp Pulse Resp B/P (MAP) Pulse Ox O2 Delivery O2 Flow Rate FiO2 08/17/24 11:19 98.3 97 18 99/65 (76) 95 98.3 Laboratory Tests Test 08/17/24 11:59 White Blood Count 16.2 10^3/uL (4.4-10.8) H Departure 1 Departure Time of Disposition: 13:15 Impression: Primary Impression: Cellulitis of left foot Disposition: ADMITTED INPATIENT Admit to: Med Surg Condition: Fair Critical Care Note Critical Care Time?: No Stability Stability form required: Yes Unstable for transfer: ED Physician Assesment (Clinical assesment) Heart Score Heart Score: Heart Score Response (Comments) Value History N/A 0 EKG N/A 0 Age N/A 0 Risk Factors N/A 0 Troponin N/A 0 Total 0 I personally scribed for VINOD AVALOS MD ([email or web address]) on 08/17/24 at 11:57. Electronically submitted by Arash Monte ([email or web address]). VINOD AVALOS MD Aug 17, 2024 11:57
[2024-08-17] MEDS ORDERED: MORPHINE SULFATE 4 MG/ML SYR/VIAL IV ONE (12:00)
[2024-08-17] MEDS ORDERED: VANCOMYCIN 1GM/200ML PM 200 ML IV ONE (12:00)
[2024-08-17] MEDS ORDERED: ONDANSETRON HCL 4 MG/2 ML VIAL IV ONE (12:00)
[2024-08-17 12:23] LABS: Hematocrit 35.9 % (36.0-46.0); Hemoglobin 11.8 g/dL (12.2-16.2); Mean Corpuscular Hemoglobin 30.9 pg (28.0-32.0); Mean Corpuscular Volume 94.2 fL (80.0-100.0); Nucleated Red Blood Cells % 0.0 %
== END 2024-08-17 14:39 | disposition left against medical advice (07) ==
LOC: ER 11:06
DX: L03.116 Cellulitis of left lower limb (principal); F17.210 Nicotine dependence, cigarettes, uncomplicated; F20.9 Schizophrenia, unspecified; I10 Essential (primary) hypertension; E11.9 Type 2 diabetes mellitus without complications; Z79.899 Other long term (current) drug therapy
CPT/HCPCS: 36415; 85025

== ENCOUNTER → 2024-10-07 | Emergency (ER) | payer MEDICARE, MEDICAID ==
[~2024-10-07] VITALS: Ht 167.6 cm; Wt 113.6 kg
[2024-10-07 22:44] VITALS: BP 148/98; PULSE 105; RESP 22; O2SAT 98
== END | disposition left against medical advice (07) ==
LOC: EDUNIT# 21:56 → ER 21:59 → EDBD 21:59
DX: F29 Unspecified psychosis not due to a substance or known physiological condition (principal); Z53.21 Procedure and treatment not carried out due to patient leaving prior to being seen by health care provider